=== PATIENT | female | born 1940 | race Caucasian/White ===

== ENCOUNTER 2017-10-17 09:37 | Emergency (ER) | payer MEDICARE ==
[2017-10-17 10:23] LABS: Basophils # (A) 0.1 k/uL (0-0.2); Basophils % (A) 1 %; Eosinophils # (A) 0.2 k/uL (0-0.7); Eosinophils % (A) 4 %; HCT 43.5 % (34.0-46.0); HGB 14.1 gm/dL (11.4-16.0); Lymphocytes # (A) 2.6 k/uL (1.0-4.8); Lymphocytes % (A) 41 %; MCH 28.5 pg (25.0-35.0); MCHC 32.4 g/dL (31.0-37.0); Mean Platelet Volume 8.1; Monocytes # (A) 0.5 k/uL (0-1.0); Monocytes % (A) 8 %; Neutrophils # (A) 2.8 k/uL (1.3-7.7); Neutrophils % (A) 44 %; Platelet Count 194 k/uL (150-450); RBC 4.94 m/uL (3.80-5.40); RDW 13.4 % (11.5-15.5); WBC 6.3 k/uL (3.8-10.6)
[2017-10-17 10:31] LABS: ALT 47 U/L (9-52); AST 46 U/L (14-36); Albumin 3.6 g/dL (3.5-5.0); Alkaline Phosphatase 116 U/L (38-126); Anion Gap 12 mmol/L; Blood Urea Nitrogen 11 mg/dL (7-17); Carbon Dioxide 25 mmol/L (22-30); Chloride 107 mmol/L (98-107); Glucose 104 mg/dL (74-99); Magnesium 1.8 mg/dL (1.6-2.3); Potassium 4.4 mmol/L (3.5-5.1); Sodium 144 mmol/L (137-145); Total Bilirubin 0.7 mg/dL (0.2-1.3); Total Protein 6.9 g/dL (6.3-8.2)
--- NOTE | 2017-10-17 10:32 | XR ---
EXAMINATION TYPE: XR chest 2V DATE OF EXAM: 10/17/2017 COMPARISON: 08/20/2017 HISTORY: Shortness of breath TECHNIQUE: Frontal and lateral views of the chest are obtained. FINDINGS: Scattered senescent parenchymal changes noted. Hyperinflation compatible with COPD. No evidence for infiltrate. No evidence for atelectasis. Heart size is stable. Mediastinal structures are stable and grossly unremarkable. No evidence for hilar prominence. Degenerative changes dorsal spine. IMPRESSION: 1. No evidence for acute pulmonary disease.
[2017-10-17 10:39] LABS: INR 1.2 (<1.2); Partial Thromboplastin Time 24.5 sec (22.0-30.0); Prothrombin Time 11.4 sec (9.0-12.0)
[2017-10-17 10:43] LABS: Creatine Kinase 52 U/L (30-135)
[2017-10-17 10:56] LABS: Creatine Kinase MB 0.7 ng/mL (0.0-2.4); Troponin I <0.012 ng/mL (0.000-0.034)
[2017-10-17 11:19] VITALS: RESP 17
--- NOTE | 2017-10-17 11:44 | CT ---
EXAMINATION TYPE: CT brain wo con DATE OF EXAM: 10/17/2017 COMPARISON: 07/10/2015 HISTORY: Dizziness, fatigue and headache CT DLP: [address] of the brain was performed. The ventricles, basal cisterns and sulci overlying the cerebral convexities demonstrate mild enlargem ent. There is no evidence for intracranial hemorrhage or sulcal effacement. There is decreased attenuation about the periventricular white matter and deep white matter of both c erebral hemispheres, compatible with chronic small vessel ischemia. Differential diagnosis does inclu de demyelination. No mass effects are seen.No midline shift. Osseous calvarium is intact. If symptoms persist consider MRI. IMPRESSION: 1. Age related atrophic and chronic small vessel ischemic change without acute intracranial process s een at this time.
--- NOTE | 2017-10-17 11:50 | ED ---
General Adult HPI - General Chief complaint: Chest Pain Stated complaint: chest pain Time Seen by Provider: 10/17/17 10:28 Source: patient Mode of arrival: wheelchair Limitations: no limitations - History of Present Illness Initial comments: 77 years old female had episode of chest pain yesterday lasted about 10 minutes she denies any chest pain right now and she has off-and-on dizziness as well dizziness gets worse when she moves or drink she changes position and complaining about increased weakness she been nauseous she denies any vomiting she did have some loose stools. He denies any headaches no chest pain or shortness of breath no abdominal pain no frequency urgency dysuria, no symptoms of TIA or CVA - Related Data Home Medications Medication Instructions Recorded Confirmed Atorvastatin [Lipitor] 20 mg PO HS 02/24/14 10/17/17 Nebivolol HCl [Bystolic] 10 mg PO DAILY 02/24/14 10/17/17 Nitroglycerin Sl Tabs [Nitrostat] 0.4 mg SUBLINGUAL Q5M PRN 02/24/14 10/17/17 amLODIPine [Norvasc] 5 mg PO DAILY 02/24/14 10/17/17 Isosorbide Mononitrate ER [Imdur] 30 mg PO DAILY 08/27/15 10/17/17 Previous Rx's Medication Instructions Recorded Aspirin 325 mg PO DAILY #30 tab 02/27/14 Amoxicillin 500 mg PO Q8H #30 capsule 10/17/17 Allergies Allergy/AdvReac Type Severity Reaction Status Date / Time No Known Allergies Allergy Unverified 10/17/17 10:26 Review of Systems ROS Statement: Those systems with pertinent positive or pertinent negative responses have been documented in the HPI. ROS Other: All systems not noted in ROS Statement are negative. Past Medical History Past Medical History: Coronary Artery Disease (CAD), Hypertension Additional Past Medical History / Comment(s): sepsis Hx. polyp in gallbladder Hx. frequent UTI History of Any Multi-Drug Resistant Organisms: None Reported Past Surgical History: Heart Catheterization With Stent, Tubal Ligation Additional Past Surgical History / Comment(s): Hx. lump removed from LH and tongue Past Anesthesia/Blood Transfusion Reactions: No Reported Reaction Date of Last Stent Placement:: 1 YEAR AGO Past Psychological History: No Psychological Hx Reported Smoking Status: Never smoker Past Alcohol Use History: None Reported Past Drug Use History: None Reported - Past Family History Mother Family Medical History: Cancer Additional Family Medical History / Comment(s): uterine CA Father Family Medical History: Cancer Additional Family Medical History / Comment(s): prostate. esophageal ca Brother(s) Family Medical History: Cancer (Lung) Sister(s) Family Medical History: Cancer (Half sister with lung cancer) Daughter(s) History Unknown: Yes (4 daughters with hypertension) Son(s) History Unknown: Yes (3 son with hypertension) General Exam - General Exam Comments Initial Comments: General: The patient is awake and alert, in no distress, and does not appear acutely ill. GCS is 15 Skin: Skin is warm and dry and no rashes or lesions are noted. Eye: Pupils are equal, round and reactive to light, extra-ocular movements are intact; there is normal conjunctiva bilaterally. Ears, nose, mouth and throat: Noticed fluid behind both tympanic membranes Neck: The neck is supple, there is no tenderness or signs of meningitis noticed Cardiovascular: There is a regular rate and rhythm. No murmur, rub or gallop is appreciated. Respiratory: To auscultation bilateral, no wheezing no rhonchi no distress respiratory parker noticed Gastrointestinal: Soft, non-distended, non-tender abdomen without masses or organomegaly noted. There is no rebound or guarding present. Bowel sounds are unremarkable. Back: There is no tenderness to palpation in the midline. There is no obvious deformity. Musculoskeletal: Normal ROM, no tenderness, There is no pedal edema. There is no calf tenderness or swelling. No cords were appreciated. Neurological: CN II-XII intact, Cranial nerves III through XII are intact. There are no obvious motor or sensory deficits. Coordination appears grossly intact. Speech is normal. Psychiatric: Cooperative, appropriate mood & affect, normal judgment. 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 and a she be gone home on a course of antibiotics for otitis EKG Findings - EKG Comments: EKG Findings:: EKG is normal sinus rhythm ventricular rate is 69 OK interval is 172 QRS duration is 88 S duration is 88 QT/QTc is 424/454 review of this EKG reveals some T-wave slight inversion in V5 and V6 also noticed some T-wave inversion in V3 Medical Decision Making - Lab Data Result diagrams: 10/17/17 09:50 10/17/17 09:50 Lab Results 10/17/17 10/17/17 10/17/17 Range/Units 09:50 09:50 09:50 WBC 6.3 (3.8-10.6) k/uL RBC 4.94 (3.80-5.40) m/uL Hgb 14.1 (11.4-16.0) gm/dL Hct 43.5 (34.0-46.0) % MCV 88.0 (80.0-100.0) fL MCH 28.5 (25.0-35.0) pg MCHC 32.4 (31.0-37.0) g/dL RDW 13.4 (11.5-15.5) % Plt Count 194 (150-450) k/uL Neutrophils % 44 % Lymphocytes % 41 % Monocytes % 8 % Eosinophils % 4 % Basophils % 1 % Neutrophils # 2.8 (1.3-7.7) k/uL Lymphocytes # 2.6 (1.0-4.8) k/uL Monocytes # 0.5 (0-1.0) k/uL Eosinophils # 0.2 (0-0.7) k/uL Basophils # 0.1 (0-0.2) k/uL PT (9.0-12.0) sec INR (<1.2) APTT (22.0-30.0) sec Sodium 144 (137-145) mmol/L Potassium 4.4 (3.5-5.1) mmol/L Chloride 107 (98-107) mmol/L Carbon Dioxide 25 (22-30) mmol/L Anion Gap 12 mmol/L BUN 11 (7-17) mg/dL Creatinine 0.60 (0.52-1.04) mg/dL Est GFR (CKD-EPI)AfAm >90 (>60 ml/min/1.73 sqM) Est GFR (CKD-EPI)NonAf 90 (>60 ml/min/1.73 sqM) Glucose 104 H (74-99) mg/dL Calcium 9.0 (8.4-10.2) mg/dL Magnesium 1.8 (1.6-2.3) mg/dL Total Bilirubin 0.7 (0.2-1.3) mg/dL AST 46 H (14-36) U/L ALT 47 (9-52) U/L Alkaline Phosphatase 116 (38-126) U/L Total Creatine Kinase 52 (30-135) U/L CK-MB (CK-2) 0.7 (0.0-2.4) ng/mL CK-MB (CK-2) Rel Index 1.3 Troponin I <0.012 (0.000-0.034) ng/mL Total Protein 6.9 (6.3-8.2) g/dL Albumin 3.6 (3.5-5.0) g/dL Urine Color Urine Appearance (Clear) Urine pH (5.0-8.0) Ur Specific [place] (1.001-1.035) Urine Protein (Negative) Urine Glucose (UA) (Negative) Urine Ketones (Negative) Urine Blood (Negative) Urine Nitrite (Negative) Urine Bilirubin (Negative) Urine Urobilinogen (<2.0) mg/dL Ur Leukocyte Esterase (Negative) Influenza Type A RNA (Not Detectd) Influenza Type B (PCR) (Not Detectd) 10/17/17 10/17/17 10/17/17 Range/Units 09:50 09:50 11:49 WBC (3.8-10.6) k/uL RBC (3.80-5.40) m/uL Hgb (11.4-16.0) gm/dL Hct (34.0-46.0) % MCV (80.0-100.0) fL MCH (25.0-35.0) pg MCHC (31.0-37.0) g/dL RDW (11.5-15.5) % Plt Count (150-450) k/uL Neutrophils % % Lymphocytes % % Monocytes % % Eosinophils % % Basophils % % Neutrophils # (1.3-7.7) k/uL Lymphocytes # (1.0-4.8) k/uL Monocytes # (0-1.0) k/uL Eosinophils # (0-0.7) k/uL Basophils # (0-0.2) k/uL PT 11.4 (9.0-12.0) sec INR 1.2 H (<1.2) APTT 24.5 (22.0-30.0) sec Sodium (137-145) mmol/L Potassium (3.5-5.1) mmol/L Chloride (98-107) mmol/L Carbon Dioxide (22-30) mmol/L Anion Gap mmol/L BUN (7-17) mg/dL Creatinine (0.52-1.04) mg/dL Est GFR (CKD-EPI)AfAm (>60 ml/min/1.73 sqM) Est GFR (CKD-EPI)NonAf (>60 ml/min/1.73 sqM) Glucose (74-99) mg/dL Calcium (8.4-10.2) mg/dL Magnesium (1.6-2.3) mg/dL Total Bilirubin (0.2-1.3) mg/dL AST (14-36) U/L ALT (9-52) U/L Alkaline Phosphatase (38-126) U/L Total Creatine Kinase (30-135) U/L CK-MB (CK-2) (0.0-2.4) ng/mL CK-MB (CK-2) Rel Index Troponin I (0.000-0.034) ng/mL Total Protein (6.3-8.2) g/dL Albumin (3.5-5.0) g/dL Urine Color Light Yellow Urine Appearance Clear (Clear) Urine pH 7.5 (5.0-8.0) Ur Specific [place] 1.007 (1.001-1.035) Urine Protein Negative (Negative) Urine Glucose (UA) Negative (Negative) Urine Ketones Negative (Negative) Urine Blood Negative (Negative) Urine Nitrite Negative (Negative) Urine Bilirubin Negative (Negative) Urine Urobilinogen <2.0 (<2.0) mg/dL Ur Leukocyte Esterase Negative (Negative) Influenza Type A RNA Not Detected (Not Detectd) Influenza Type B (PCR) Not Detected (Not Detectd) Disposition Clinical Impression: Dizziness, Chest pain, Otitis media Disposition: HOME SELF-CARE Condition: Good Instructions: Chest Pain (ED) Prescriptions: Amoxicillin 500 mg PO Q8H #30 capsule Referrals: Charly Pang DO [Primary Care Provider] - 1-2 days Morgan Disla MD [STAFF PHYSICIAN] - 1-2 days
[2017-10-17 12:00] LABS: Appearance,Urine Clear (Clear); Bilirubin,Urine Negative (Negative); Blood,Urine Negative (Negative); Color,Urine Light Yellow; Glucose,Urine (UA) Negative (Negative); Ketones,Urine Negative (Negative); Leukocyte Esterase,Urine Negative (Negative); Nitrite,Urine Negative (Negative); PH, Urine 7.5 (5.0-8.0); Protein,Urine Negative (Negative); Specific Gravity,Urine 1.007 (1.001-1.035); Urobilinogen,Urine <2.0 mg/dL (<2.0)
[2017-10-17 13:21] VITALS: BP 133/64; PULSE 57; TEMP 97.8
== END 2017-10-17 13:20 | disposition home or self-care (01) ==
LOC: EC 09:37
DX: R07.9 Chest pain, unspecified (principal); R42 Dizziness and giddiness; H66.93 Otitis media, unspecified, bilateral; R11.0 Nausea; R53.1 Weakness; R40.2412 Glasgow coma scale score 13-15, at arrival to emergency department; I25.10 Atherosclerotic heart disease of native coronary artery without angina pectoris; I10 Essential (primary) hypertension; Z86.19 Personal history of other infectious and parasitic diseases; Z79.899 Other long term (current) drug therapy; Z88.0 Allergy status to penicillin; Z88.6 Allergy status to analgesic agent
CPT/HCPCS: 36415; 70450; 71046; 80053; 81003; 82550; 82553; 83735; 84484; 85025; 85610; 85730; 87502; 93005; 99285

== ENCOUNTER → 2017-12-27 | Outpatient (CLI) | payer MEDICARE ==
--- NOTE | 2017-12-27 15:07 | US ---
EXAMINATION TYPE: US thyroid st tissue head/neck DATE OF EXAM: 12/27/2017 COMPARISON: NONE CLINICAL HISTORY: R22.1 Neck mass. midline fullness above sternal notch GLAND SIZE: Imaged from midline level of thyroid inferiorly through sternal notch and saw no soft tissue abnormal ity. IMPRESSION: No distinct abnormality seen.
== END | disposition home or self-care (01) ==
LOC: RADUSWWP 14:18
PROVIDERS: ATTEND Family Medicine
DX: R22.1 Localized swelling, mass and lump, neck (principal)
CPT/HCPCS: 76536

== ENCOUNTER → 2018-04-16 | Outpatient (CLI) | payer MEDICARE ==
--- NOTE | 2018-04-16 12:00 | CT ---
EXAMINATION TYPE: CT brain wo/w con DATE OF EXAM: 04/16/2018 COMPARISON: 10/17/2017 HISTORY: palpitations and headache CT DLP: 2238 mGycm Automated exposure control for dose reduction was used. CONTRAST: CT scan of the head is performed without and with IV Contrast, patient injected with 100 ml mL of Iso julian 300. FINDINGS: The ventricles, basal cisterns and sulci overlying the cerebral convexities demonstrate mild enlargem ent. There is no evidence for intracranial hemorrhage or sulcal effacement. There is decreased attenuation about the periventricular white matter and deep white matter of both c erebral hemispheres, compatible with chronic small vessel ischemia. Differential diagnosis does inclu de demyelination. No mass effects are seen. No midline shift. Osseous calvarium is intact. If symptom s persist consider MRI. Changes of chronic sinusitis noted. Hyperostosis of the calvarium noted. IMPRESSION: Degenerative and nonspecific white matter changes most typical remote microvascular ischemia
== END | disposition home or self-care (01) ==
LOC: RADCTMAIN 09:26
PROVIDERS: ATTEND Family Medicine
DX: R90.82 White matter disease, unspecified (principal); R00.2 Palpitations; Z86.73 Personal history of transient ischemic attack (TIA), and cerebral infarction without residual deficits
CPT/HCPCS: 93270; 93271; 82565; 84520; 70470; 36415; Q9967

== ENCOUNTER 2018-06-01 09:08 | Observation (INO) | payer MEDICARE ==
[2018-06-01] MEDS ORDERED: SODIUM CHLORIDE 0.9% 1,000 ML IV STA (09:45)
[2018-06-01] MEDS ORDERED: SODIUM CHLORIDE 0.9% 500 ML 500 ML IV STA ×2 (09:45→13:03)
[2018-06-01] MEDS ORDERED: MECLIZINE 12.5 MG TAB PO STA (09:46)
--- NOTE | 2018-06-01 09:49 | ED ---
General Adult HPI <Kevin Zhong - Last Filed: 06/01/18 14:56> - General Source: patient, RN notes reviewed Mode of arrival: ambulatory Limitations: no limitations <Michael Zuluaga - Last Filed: 06/01/18 15:07> - General Chief complaint: Weakness Stated complaint: Nauseated, Dizzy Time Seen by Provider: 06/01/18 09:35 - History of Present Illness Initial comments: Patient 78-year-old female presented to the emergency room today with a chief complaint of dizziness. Patient is admitted to the past week she's been feeling dizzy. She states worse when she stands up. She states she feels unsteady on her feet she's got a fall over. She does admit that she was diagnosed with urinary tract infection last Monday. Has been on Macrobid. She does admit that she gets urinary tract infections quite frequently and when they seem to get worse the dizziness increases. She states she's had this dizziness in the past as well as also seen cardiology was told that she had a low heart rate at times. She states dizziness to does seem to be worse in the morning and better throughout the day. Patient thought she was getting better 2 days ago with the symptoms but this morning symptoms seemed increase once again. Patient does admit that appetites been somewhat decreased but is been trying to drink water. Patient denies any other complaints at this time. Patient denies any recent fever, chills, shortness of breath, chest pain, back pain, abdominal pain, vomiting, headaches or visual changes, or any other complaints. (Michael Zuluaga) - Related Data Home Medications Medication Instructions Recorded Confirmed Atorvastatin [Lipitor] 20 mg PO HS 02/24/14 06/01/18 Nebivolol HCl [Bystolic] 10 mg PO DAILY 02/24/14 06/01/18 Nitroglycerin Sl Tabs [Nitrostat] 0.4 mg SUBLINGUAL Q5M PRN 02/24/14 06/01/18 Isosorbide Mononitrate ER [Imdur] 30 mg PO DAILY 08/27/15 06/01/18 Aspirin 81 mg PO DAILY 06/01/18 06/01/18 Nitrofurantoin Monohyd/M-Cryst 100 mg PO Q12HR 06/01/18 06/01/18 [Macrobid] Allergies Allergy/AdvReac Type Severity Reaction Status Date / Time No Known Allergies Allergy Verified 06/01/18 09:36 Review of Systems ROS Other: All systems not noted in ROS Statement are negative. <Kevin Zhong Sonja - Last Filed: 06/01/18 14:56> ROS Other: All systems not noted in ROS Statement are negative. <Michael Zuluaga - Last Filed: 06/01/18 15:07> ROS Statement: Those systems with pertinent positive or pertinent negative responses have been documented in the HPI. Past Medical History Past Medical History: Coronary Artery Disease (CAD), Hypertension Additional Past Medical History / Comment(s): sepsis Hx. polyp in gallbladder Hx. frequent UTI History of Any Multi-Drug Resistant Organisms: None Reported Past Surgical History: Heart Catheterization With Stent, Tubal Ligation Additional Past Surgical History / Comment(s): Hx. lump removed from LH and tongue Past Anesthesia/Blood Transfusion Reactions: No Reported Reaction Date of Last Stent Placement:: 1 YEAR AGO Past Psychological History: No Psychological Hx Reported Smoking Status: Never smoker Past Alcohol Use History: None Reported Past Drug Use History: None Reported - Past Family History Mother Family Medical History: Cancer Additional Family Medical History / Comment(s): uterine CA Father Family Medical History: Cancer Additional Family Medical History / Comment(s): prostate. esophageal ca Brother(s) Family Medical History: Cancer (Lung) Sister(s) Family Medical History: Cancer (Half sister with lung cancer) Daughter(s) History Unknown: Yes (4 daughters with hypertension) Son(s) History Unknown: Yes (3 son with hypertension) <ZuluagaMichael - Last Filed: 06/01/18 15:07> General Exam <Kevin Zhong Sonja - Last Filed: 06/01/18 14:56> Limitations: no limitations <ZanMichael - Last Filed: 06/01/18 15:07> - General Exam Comments Initial Comments: General: The patient is awake and alert, in no distress, and does not appear acutely ill. Eye: Pupils are equal, round and reactive to light. Extra-ocular movements are intact. No nystagmus. There is normal conjunctiva bilaterally. No signs of icterus. Ears, nose, mouth and throat: There are moist mucous membranes and no oral lesions. Neck: The neck is supple, there is no tenderness or JVD. Cardiovascular: There is a regular rate and rhythm. No murmur, rub or gallop is appreciated. Respiratory: Lungs are clear to auscultation, respirations are non-labored, breath sounds are equal. No wheezes, stridor, rales, or rhonchi. Gastrointestinal: Soft, non-distended, non-tender abdomen without masses or organomegaly noted. There is no rebound or guarding present. No CVA tenderness. Musculoskeletal: Normal ROM, no tenderness. Sensation intact. Strength 5/5. Pulses equal bilaterally 2+. Neurological: A&O x 3. CN II-XII intact, There are no obvious motor or sensory deficits. Coordination appears grossly intact. Speech is normal. Skin: Skin is warm and dry and no rashes or lesions are noted. Psychiatric: Cooperative, appropriate mood & affect, normal judgment. (Michael Zuluaga) Vital Signs 06/01/18 06/01/18 09:11 12:33 Temperature 97.9 F Pulse Rate 88 Pulse Rate [ 61 Pulse Oximetery ] Respiratory 20 18 Rate Blood Pressure 138/83 Blood Pressure 188/100 [Right Arm Sitting] Blood Pressure 140/98 [Right Arm Standing] Blood Pressure 177/88 [Right Arm Supine] O2 Sat by Pulse 99 Oximetry EKG Findings - EKG Comments: EKG Findings:: EKG performed at 1014: Shows normal sinus rhythm at 65 bpm. DC interval 172. QRS 94. QT/QTc is 438/455. No acute ST change. <Michael Zuluaga - Last Filed: 06/01/18 15:07> Medical Decision Making - Lab Data Result diagrams: 06/01/18 10:15 06/01/18 10:15 <Kevin Zhong - Last Filed: 06/01/18 14:56> - Lab Data Result diagrams: 06/01/18 10:15 06/01/18 10:15 <Michael Zuluaga - Last Filed: 06/01/18 15:07> - Medical Decision Making 72 sexual female with lightheadedness. Patient is currently being treated for UTI. She states her urinary symptoms have improved. This morning she felt quite lightheaded with standing. Denies vomiting or diarrhea. Denies chest pain or dyspnea. Denies headache. Denies focal numbness or weakness. Patient is given IV hydration for orthostatic hypotension which is likely the cause of her symptoms. On reevaluation she states she feels somewhat better. Patient does live alone. She will be placed in observation for continued IV hydration. Blood culture urine culture are pending given her recent UTI. Case discussed with admitting physician who will accept. (Kevin Zhong) - Lab Data Lab Results 06/01/18 06/01/18 06/01/18 Range/Units 10:15 10:15 10:15 WBC 7.3 (3.8-10.6) k/uL RBC 4.92 (3.80-5.40) m/uL Hgb 15.3 (11.4-16.0) gm/dL Hct 45.1 (34.0-46.0) % MCV 91.6 (80.0-100.0) fL MCH 31.0 (25.0-35.0) pg MCHC 33.9 (31.0-37.0) g/dL RDW 12.5 (11.5-15.5) % Plt Count 194 (150-450) k/uL Neutrophils % 46 % Lymphocytes % 41 % Monocytes % 9 % Eosinophils % 2 % Basophils % 1 % Neutrophils # 3.4 (1.3-7.7) k/uL Lymphocytes # 3.0 (1.0-4.8) k/uL Monocytes # 0.6 (0-1.0) k/uL Eosinophils # 0.1 (0-0.7) k/uL Basophils # 0.0 (0-0.2) k/uL PT (9.0-12.0) sec INR (<1.2) APTT (22.0-30.0) sec Sodium 142 (137-145) mmol/L Potassium 4.0 (3.5-5.1) mmol/L Chloride 111 H (98-107) mmol/L Carbon Dioxide 24 (22-30) mmol/L Anion Gap 7 mmol/L BUN 12 (7-17) mg/dL Creatinine 0.63 (0.52-1.04) mg/dL Est GFR (CKD-EPI)AfAm >90 (>60 ml/min/1.73 sqM) Est GFR (CKD-EPI)NonAf 87 (>60 ml/min/1.73 sqM) Glucose 106 H (74-99) mg/dL Plasma Lactic Acid Jey (0.7-2.0) mmol/L Calcium 9.2 (8.4-10.2) mg/dL Total Bilirubin 0.8 (0.2-1.3) mg/dL AST 51 H (14-36) U/L ALT 43 (9-52) U/L Alkaline Phosphatase 112 (38-126) U/L Total Creatine Kinase 57 (30-135) U/L CK-MB (CK-2) 0.5 (0.0-2.4) ng/mL CK-MB (CK-2) Rel Index 0.9 Troponin I <0.012 (0.000-0.034) ng/mL Total Protein 7.0 (6.3-8.2) g/dL Albumin 3.6 (3.5-5.0) g/dL Urine Color Urine Appearance (Clear) Urine pH (5.0-8.0) Ur Specific [place] (1.001-1.035) Urine Protein (Negative) Urine Glucose (UA) (Negative) Urine Ketones (Negative) Urine Blood (Negative) Urine Nitrite (Negative) Urine Bilirubin (Negative) Urine Urobilinogen (<2.0) mg/dL Ur Leukocyte Esterase (Negative) Urine WBC (0-5) /hpf Ur Squamous Epith Cells (0-4) /hpf Urine Bacteria (None) /hpf Urine Mucus (None) /hpf 06/01/18 06/01/18 06/01/18 Range/Units 10:15 10:15 11:35 WBC (3.8-10.6) k/uL RBC (3.80-5.40) m/uL Hgb (11.4-16.0) gm/dL Hct (34.0-46.0) % MCV (80.0-100.0) fL MCH (25.0-35.0) pg MCHC (31.0-37.0) g/dL RDW (11.5-15.5) % Plt Count (150-450) k/uL Neutrophils % % Lymphocytes % % Monocytes % % Eosinophils % % Basophils % % Neutrophils # (1.3-7.7) k/uL Lymphocytes # (1.0-4.8) k/uL Monocytes # (0-1.0) k/uL Eosinophils # (0-0.7) k/uL Basophils # (0-0.2) k/uL PT 10.9 (9.0-12.0) sec INR 1.1 (<1.2) APTT 24.1 (22.0-30.0) sec Sodium (137-145) mmol/L Potassium (3.5-5.1) mmol/L Chloride (98-107) mmol/L Carbon Dioxide (22-30) mmol/L Anion Gap mmol/L BUN (7-17) mg/dL Creatinine (0.52-1.04) mg/dL Est GFR (CKD-EPI)AfAm (>60 ml/min/1.73 sqM) Est GFR (CKD-EPI)NonAf (>60 ml/min/1.73 sqM) Glucose (74-99) mg/dL Plasma Lactic Acid Jey 1.5 (0.7-2.0) mmol/L Calcium (8.4-10.2) mg/dL Total Bilirubin (0.2-1.3) mg/dL AST (14-36) U/L ALT (9-52) U/L Alkaline Phosphatase (38-126) U/L Total Creatine Kinase (30-135) U/L CK-MB (CK-2) (0.0-2.4) ng/mL CK-MB (CK-2) Rel Index Troponin I (0.000-0.034) ng/mL Total Protein (6.3-8.2) g/dL Albumin (3.5-5.0) g/dL Urine Color Light Yellow Urine Appearance Clear (Clear) Urine pH 6.5 (5.0-8.0) Ur Specific [place] 1.006 (1.001-1.035) Urine Protein Negative (Negative) Urine Glucose (UA) Negative (Negative) Urine Ketones Negative (Negative) Urine Blood Negative (Negative) Urine Nitrite Negative (Negative) Urine Bilirubin Negative (Negative) Urine Urobilinogen <2.0 (<2.0) mg/dL Ur Leukocyte Esterase Small H (Negative) Urine WBC 6 H (0-5) /hpf Ur Squamous Epith Cells <1 (0-4) /hpf Urine Bacteria Rare H (None) /hpf Urine Mucus Rare H (None) /hpf Disposition <Kevin Zhong - Last Filed: 06/01/18 14:56> Is patient prescribed a controlled substance at d/c from ED?: No <Michael Zuluaga - Last Filed: 06/01/18 15:07> Clinical Impression: Dehydration, Orthostatic dizziness, UTI (urinary tract infection) Disposition: ADMITTED IP TO THIS HOSP Condition: Stable Referrals: Charly Pang DO [Primary Care Provider] - 1-2 days
--- NOTE | 2018-06-01 10:38 | XR ---
EXAMINATION TYPE: XR chest 2V DATE OF EXAM: 06/01/2018 COMPARISON: 10/17/2017 HISTORY: Shortness of breath TECHNIQUE: Frontal and lateral views of the chest are obtained. FINDINGS: Scattered senescent parenchymal changes noted. No evidence for infiltrate. No evidence for atelectasis. Heart size is stable. Mediastinal structures are stable and grossly unremarkable. No evidence for hilar prominence. Degenerative changes dorsal spine. IMPRESSION: 1. No evidence for acute pulmonary disease.
[2018-06-01 10:40] LABS: Basophils % (A) 1 %; Eosinophils # (A) 0.1 k/uL (0-0.7); Eosinophils % (A) 2 %; HCT 45.1 % (34.0-46.0); HGB 15.3 gm/dL (11.4-16.0); Lymphocytes % (A) 41 %; MCHC 33.9 g/dL (31.0-37.0); MCV 91.6 fL (80.0-100.0); Mean Platelet Volume 7.4; Monocytes # (A) 0.6 k/uL (0-1.0); Monocytes % (A) 9 %; Neutrophils # (A) 3.4 k/uL (1.3-7.7); Neutrophils % (A) 46 %; Platelet Count 194 k/uL (150-450); RBC 4.92 m/uL (3.80-5.40); RDW 12.5 % (11.5-15.5); WBC 7.3 k/uL (3.8-10.6)
[2018-06-01 10:53] LABS: INR 1.1 (<1.2); Partial Thromboplastin Time 24.1 sec (22.0-30.0); Prothrombin Time 10.9 sec (9.0-12.0)
[2018-06-01 10:54] LABS: ALT 43 U/L (9-52); AST 51 U/L (14-36); Albumin 3.6 g/dL (3.5-5.0); Alkaline Phosphatase 112 U/L (38-126); Anion Gap 7 mmol/L; Blood Urea Nitrogen 12 mg/dL (7-17); Calcium 9.2 mg/dL (8.4-10.2); Carbon Dioxide 24 mmol/L (22-30); Chloride 111 mmol/L (98-107); Glucose 106 mg/dL (74-99); Sodium 142 mmol/L (137-145); Total Bilirubin 0.8 mg/dL (0.2-1.3)
[2018-06-01 11:19] LABS: Creatine Kinase 57 U/L (30-135)
[2018-06-01 11:33] LABS: Creatine Kinase MB 0.5 ng/mL (0.0-2.4); Troponin I <0.012 ng/mL (0.000-0.034)
[2018-06-01 12:04] LABS: Appearance,Urine Clear (Clear); Bacteria,Urine Rare /hpf; Bilirubin,Urine Negative (Negative); Blood,Urine Negative (Negative); Color,Urine Light Yellow; Glucose,Urine (UA) Negative (Negative); Ketones,Urine Negative (Negative); Leukocyte Esterase,Urine Small (Negative); Mucus,Urine Rare /hpf; Nitrite,Urine Negative (Negative); PH, Urine 6.5 (5.0-8.0); Protein,Urine Negative (Negative); Specific Gravity,Urine 1.006 (1.001-1.035); Squamous Epithelial Cell,Urine <1 /hpf (0-4); Urobilinogen,Urine <2.0 mg/dL (<2.0); WBC,Urine 6 /hpf (0-5)
--- NOTE | 2018-06-01 13:56 | US ---
EXAMINATION TYPE: US venous doppler duplex LE RT DATE OF EXAM: 06/01/2018 1:47 PM COMPARISON: NONE CLINICAL HISTORY: Pain. Rt calf burning pain. No redness. No swelling. No hx of DVT. On baby aspir in. SIDE PERFORMED: Right TECHNIQUE: The lower extremity deep venous system is examined utilizing real time linear array sonog oscar with graded compression, doppler sonography and color-flow sonography. VESSELS IMAGED: External Iliac Vein (EIV) Common Femoral Vein Deep Femoral Vein Greater Saphenous Vein * Femoral Vein Popliteal Vein Small Saphenous Vein * Proximal Calf Veins (* superficial vessels) Right Leg: Negative for DVT IMPRESSION: No evidence for DVT at this time.
[2018-06-01] MEDS ORDERED: ACETAMINOPHEN TAB 325 MG TAB PO PRN (15:07)
[2018-06-01] MEDS ORDERED: ONDANSETRON 4 MG/2 ML VIAL IVP PRN (15:07)
[2018-06-01] MEDS ORDERED: NALOXONE 0.4 MG/ML 1 ML VIAL IV PRN (15:07)
[2018-06-01] MEDS: SODIUM CHLORIDE 0.9% 1,000 ML IV SCH (19:28)
[2018-06-01] MEDS: ATORVASTATIN 20 MG TAB PO SCH (21:49)
[2018-06-01] MEDS: NITROFURANTOIN MONOHYD/M-CRYST 100 MG CAP PO SCH (21:49)
[2018-06-02] MEDS: SODIUM CHLORIDE 0.9% 1,000 ML IV SCH ×2 (05:05→08:11)
[2018-06-02 08:00] LABS: Basophils % (A) 1 %; Eosinophils # (A) 0.2 k/uL (0-0.7); Eosinophils % (A) 3 %; HCT 42.8 % (34.0-46.0); HGB 13.5 gm/dL (11.4-16.0); Lymphocytes # (A) 2.2 k/uL (1.0-4.8); Lymphocytes % (A) 42 %; MCH 29.6 pg (25.0-35.0); MCHC 31.7 g/dL (31.0-37.0); MCV 93.6 fL (80.0-100.0); Mean Platelet Volume 6.9; Monocytes # (A) 0.4 k/uL (0-1.0); Monocytes % (A) 8 %; Neutrophils # (A) 2.3 k/uL (1.3-7.7); Neutrophils % (A) 45 %; Platelet Count 172 k/uL (150-450); RBC 4.57 m/uL (3.80-5.40); RDW 12.4 % (11.5-15.5); WBC 5.1 k/uL (3.8-10.6)
[2018-06-02] MEDS: NEBIVOLOL 5 MG TAB PO SCH (08:11)
[2018-06-02] MEDS: NITROFURANTOIN MONOHYD/M-CRYST 100 MG CAP PO SCH ×2 (08:11→21:29)
[2018-06-02] MEDS: ASPIRIN 81 MG PO SCH (08:11)
[2018-06-02] MEDS: ISOSORBIDE MONONITRATE ER 30 MG TAB.ER.24H PO SCH (08:11)
[2018-06-02 08:14] LABS: ALT 43 U/L (9-52); AST 42 U/L (14-36); Alkaline Phosphatase 89 U/L (38-126); Anion Gap 4 mmol/L; Blood Urea Nitrogen 12 mg/dL (7-17); Calcium 8.7 mg/dL (8.4-10.2); Carbon Dioxide 25 mmol/L (22-30); Chloride 112 mmol/L (98-107); Glucose 138 mg/dL (74-99); Potassium 3.8 mmol/L (3.5-5.1); Sodium 141 mmol/L (137-145); Total Bilirubin 0.7 mg/dL (0.2-1.3); Total Protein 5.9 g/dL (6.3-8.2)
[2018-06-02] MEDS ORDERED: NITROGLYCERIN SL TABS 0.4 MG TAB SUBLINGUAL PRN (16:55)
--- NOTE | 2018-06-02 17:39 | P.HPIM ---
History of Present Illness H&P Date: 06/02/18 Chief Complaint: dizziness This is a 78-year-old female one of Dr. Pang with a previous medical history significant for coronary artery disease status post the PCI of the LAD back in October 2012, hypertension and hypertensive cardiovascular disease with left ventricular hypertrophy, hyperlipidemia, patient the presented to the emergency department at [facility] because of increased dizziness and she had called her primary care physician and she was asked to go to the ER for evaluation, patient was found to have a mild cystitis however she appeared a bit orthostatic in the ER subsequent she was admitted to the hospital for IV fluid resuscitation she was placed on oral antibiotic in the form of Macrobid 100 mg orally twice every day and the patient was kept in the hospital for another 24 hours as to be discharged home in the next 24 hours. Review of Systems Constitutional: Reports weakness, Denies anorexia, Denies chronic headaches, Denies lethargy Eyes: denies blurred vision, denies bulging eye, denies decreased vision Ears: bilateral: decreased hearing Ears, nose, mouth and throat: Reports vertigo, Denies dysphagia, Denies neck lump, Denies sore throat Cardiovascular: Reports high blood pressure, Denies chest pain, Denies dyspnea on exertion, Denies edema, Denies paroxysmal nocturnal dyspnea, Denies rapid heart beat, Denies shortness of breath, Denies syncope Respiratory: Denies congestion, Denies cough with sputum, Denies home oxygen, Denies sleep apnea, Denies snoring, Denies wheezing Gastrointestinal: Denies abdominal pain, Denies bloating, Denies BRBPR, Denies excessive gas, Denies melena, Denies nausea, Denies vomiting Genitourinary: Denies dysuria, Denies hematuria Menstruation: Reports postmenopausal Musculoskeletal: Denies myalgias Musculoskeletal: absent: ankle pain, ankle stiffness, ankle swelling, elbow pain , elbow stiffness, elbow swelling, foot pain, foot stiffness, foot swelling, hand pain, hand stiffness, hand swelling, hip pain, hip stiffness, hip swelling , knee pain, knee stiffness, knee swelling, shoulder pain, shoulder stiffness, shoulder swelling, wrist pain, wrist stiffness, wrist swelling Integumentary: Denies pruritus, Denies rash Neurological: Denies numbness, Denies weakness Psychiatric: Denies anxiety, Denies depression Endocrine: Denies fatigue, Denies weight change Past Medical History Past Medical History: Coronary Artery Disease (CAD), Hypertension, Osteoarthritis (OA) Additional Past Medical History / Comment(s): sepsis Hx. polyp in gallbladder Hx. frequent UTI, "headaches". "palitations", occular migraines History of Any Multi-Drug Resistant Organisms: None Reported Past Surgical History: Adenoidectomy, Heart Catheterization With Stent, Tonsillectomy, Tubal Ligation Additional Past Surgical History / Comment(s): Hx.benign lump removed from Left hand and tongue Past Anesthesia/Blood Transfusion Reactions: No Reported Reaction Date of Last Stent Placement:: 1 YEAR AGO Smoking Status: Never smoker - Past Family History Mother Family Medical History: Cancer (mother at age of 90 from uterine cancer.) Additional Family Medical History / Comment(s): uterine CA Father Family Medical History: Cancer (father at age of 83 From the prostate cancer and esophageal cancer) Additional Family Medical History / Comment(s): prostate. esophageal ca Brother(s) Family Medical History: Cancer (patient had a half brother who at age of 68 from lung cancer.) Sister(s) Family Medical History: Cancer (patient had half sister who at age of 69 from lung cancer as well.) Daughter(s) History Unknown: Yes Family Medical History: CVA/TIA (patient has 4 daughters one of them diedof CVA at age 33 the rest has hypertension.) Son(s) History Unknown: Yes Family Medical History: Hypertension (patient has 3 sons with hypertension.) Medications and Allergies Home Medications Medication Instructions Recorded Confirmed Type Atorvastatin [Lipitor] 20 mg PO HS 02/24/14 06/01/18 History Nebivolol HCl [Bystolic] 10 mg PO DAILY 02/24/14 06/01/18 History Nitroglycerin Sl Tabs [Nitrostat] 0.4 mg SUBLINGUAL Q5M PRN 02/24/14 06/01/18 History Isosorbide Mononitrate ER [Imdur] 30 mg PO DAILY 08/27/15 06/01/18 History Aspirin 81 mg PO DAILY 06/01/18 06/01/18 History Nitrofurantoin Monohyd/M-Cryst 100 mg PO Q12HR 06/01/18 06/01/18 History [Macrobid] Allergies Allergy/AdvReac Type Severity Reaction Status Date / Time No Known Allergies Allergy Verified 06/01/18 09:36 Physical Exam Vitals: Vital Signs Temp Pulse Pulse Resp BP BP BP 06/02/18 08:13 16 06/02/18 07:30 98.3 F 68 16 143/67 06/01/18 21:50 98.3 F 63 16 128/82 103/70 06/01/18 19:22 98.2 F 61 16 142/80 06/01/18 18:30 98.1 F 62 17 151/81 06/01/18 18:00 60 17 169/78 06/01/18 17:30 63 13 149/80 06/01/18 17:00 59 L 17 131/69 06/01/18 16:30 60 14 138/71 06/01/18 16:06 63 18 138/71 06/01/18 16:00 60 12 147/74 06/01/18 15:30 57 L 16 188/86 06/01/18 15:00 57 L 16 165/85 06/01/18 14:30 53 L 18 174/83 06/01/18 14:00 56 L 15 175/89 BP Pulse Ox 06/02/18 08:13 06/02/18 07:30 95 06/01/18 21:50 136/79 94 L 06/01/18 19:22 95 06/01/18 18:30 95 06/01/18 18:00 95 06/01/18 17:30 95 06/01/18 17:00 94 L 06/01/18 16:30 94 L 06/01/18 16:06 95 06/01/18 16:00 93 L 06/01/18 15:30 95 06/01/18 15:00 97 06/01/18 14:30 98 06/01/18 14:00 96 Intake and Output 06/01/18 06/02/18 06/02/18 22:59 06:59 14:59 Intake Total 150 Balance 150 Intake: Oral 150 Other: Voiding Method Toilet # Voids 1 2 - Constitutional General appearance: average body habitus, no acute distress - EENT Eyes: anicteric sclerae, EOMI, PERRLA, no ptosis, no scleral icterus, normal appearance ENT: hearing grossly normal, NA/AT, normal oropharynx, no thrush Ears: bilateral: normal - Neck Neck: no lymphadenopathy, normal ROM, no rigidity, no stridor, no thyromegaly Carotids: bilateral: upstroke normal Thyroid: bilateral: normal size - Respiratory Respiratory: bilateral: diminished, negative: dullness, rales, rhonchi, wheezing , prolonged expiration, prolonged inspiration - Cardiovascular Rhythm: regular Heart sounds: normal: S1, S2 Abnormal Heart Sounds: systolic murmur, no S3 Gallop, no S4 Gallop, no click - Gastrointestinal General gastrointestinal: normal bowel sounds, soft, no splenomegaly, no tenderness, no umbilical hernia, no ventral hernia - Integumentary Integumentary: normal, normal turgor - Neurologic Neurologic: CNII-XII intact - Musculoskeletal Musculoskeletal: generalized weakness, strength equal bilaterally - Psychiatric Psychiatric: A&O x's 3, appropriate affect, intact judgment & insight Results CBC & Chem 7: 06/02/18 07:20 06/02/18 07:20 Labs: Abnormal Lab Results - Last 24 Hours (Table) 06/02/18 Range/Units 07:20 Chloride 112 H (98-107) mmol/L Glucose 138 H (74-99) mg/dL AST 42 H (14-36) U/L Total Protein 5.9 L (6.3-8.2) g/dL Albumin 3.0 L (3.5-5.0) g/dL Microbiology - Last 24 Hours (Table) 06/01/18 10:15 Blood Culture - Preliminary Blood No Growth after 24 hours 06/01/18 11:35 Urine Culture - Preliminary Urine,Voided Thrombosis Risk Factor Assmnt - DVT/VTE Prophylaxis DVT/VTE Prophylaxis: Pharmacologic Prophylaxis ordered, Mechanical Prophylaxis ordered - Choose All That Apply Any of the Below Risk Factors Present?: Yes Each Factor Represents 1 point: Obesity (BMI >25) Other Risk Factors: Yes Each Risk Factor Represents 3 Points: Age 75 years or older Other congenital or acquired thrombophilia - If yes, enter type in comment: No Thrombosis Risk Factor Assessment Total Risk Factor Score: 4 Thrombosis Risk Factor Assessment Level: Moderate Risk Assessment and Plan Assessment: Assessment and plan: 1. Dizziness likely related to mild dehydration with poor oral intake of fluid. Continue IV fluid resuscitation in the form of normal saline at 100 mL an hour for the next 24 hours, patient can be discharged home in the next 24 hours. 2. Simple cystitis. Continue Macrobid 100 mg orally twice every day. 3. CAD post-PCI of the LAD. Continue patient on Lipitor 20 mg orally once every day, by systolic 10 mg orally once every day, aspirin 325 mg orally once every day, Imdur 30 mg orally once every day. 4. Hyperlipidemia. Continue patient on Lipitor 20 mg orally once every day. 5. Hypertension and hypertensive cardiovascular disease. Continue patient on diastolic to milligram at bedtime, amlodipine 5 mg orally once every day. 6. DVT prophylaxis. Heparin 5000 units subcutaneously every 12 hours. 7. GI prophylaxis. Continue PPI. 8. Patient is full code. 9. Admit to inpatient estimate a length of stay 2 midnights. 10. Home tomorrow morning.
[2018-06-02] MEDS: ATORVASTATIN 20 MG TAB PO SCH (21:29)
[2018-06-02] MEDS: HEPARIN SODIUM,PORCINE 5,000 UNIT/ML 1 ML VIAL SQ SCH (21:30)
[2018-06-03] MEDS: SODIUM CHLORIDE 0.9% 1,000 ML IV SCH ×2 (00:12→08:26)
[2018-06-03 07:43] LABS: Basophils % (A) 1 %; Eosinophils # (A) 0.3 k/uL (0-0.7); Eosinophils % (A) 4 %; HCT 45.5 % (34.0-46.0); HGB 14.6 gm/dL (11.4-16.0); Lymphocytes # (A) 3.6 k/uL (1.0-4.8); Lymphocytes % (A) 49 %; MCH 29.8 pg (25.0-35.0); MCHC 32.2 g/dL (31.0-37.0); MCV 92.6 fL (80.0-100.0); Mean Platelet Volume 7.1; Monocytes # (A) 0.6 k/uL (0-1.0); Monocytes % (A) 9 %; Neutrophils # (A) 2.6 k/uL (1.3-7.7); Neutrophils % (A) 36 %; Platelet Count 166 k/uL (150-450); RBC 4.91 m/uL (3.80-5.40); RDW 12.4 % (11.5-15.5); WBC 7.3 k/uL (3.8-10.6)
[2018-06-03 07:59] LABS: ALT 42 U/L (9-52); AST 43 U/L (14-36); Albumin 3.3 g/dL (3.5-5.0); Alkaline Phosphatase 94 U/L (38-126); Anion Gap 7 mmol/L; Blood Urea Nitrogen 13 mg/dL (7-17); Calcium 8.8 mg/dL (8.4-10.2); Carbon Dioxide 27 mmol/L (22-30); Chloride 108 mmol/L (98-107); Glucose 92 mg/dL (74-99); Magnesium 1.7 mg/dL (1.6-2.3); Potassium 4.1 mmol/L (3.5-5.1); Sodium 142 mmol/L (137-145); Total Bilirubin 0.7 mg/dL (0.2-1.3); Total Protein 6.6 g/dL (6.3-8.2)
[2018-06-03] MEDS: NEBIVOLOL 5 MG TAB PO SCH (08:24)
[2018-06-03] MEDS: ASPIRIN 81 MG PO SCH (08:24)
[2018-06-03] MEDS: HEPARIN SODIUM,PORCINE 5,000 UNIT/ML 1 ML VIAL SQ SCH (08:24)
[2018-06-03] MEDS: ISOSORBIDE MONONITRATE ER 30 MG TAB.ER.24H PO SCH (08:24)
[2018-06-03] MEDS: NITROFURANTOIN MONOHYD/M-CRYST 100 MG CAP PO SCH (08:24)
[2018-06-03 15:19] VITALS: BP 135/70; PULSE 58; RESP 16; TEMP 97.4
== END 2018-06-03 15:37 | disposition home or self-care (01) ==
LOC: EC 09:08 → 4MS4W 14:55
PROVIDERS: ADMIT Internal Medicine Geriatric Medicine; ATTEND Internal Medicine Geriatric Medicine
DX: R42 Dizziness and giddiness (principal); M79.661 Pain in right lower leg; E86.0 Dehydration; N30.90 Cystitis, unspecified without hematuria; I25.10 Atherosclerotic heart disease of native coronary artery without angina pectoris; I11.9 Hypertensive heart disease without heart failure; E78.5 Hyperlipidemia, unspecified; M19.90 Unspecified osteoarthritis, unspecified site; Z87.440 Personal history of urinary (tract) infections; G43.909 Migraine, unspecified, not intractable, without status migrainosus; Z95.5 Presence of coronary angioplasty implant and graft; Z80.0 Family history of malignant neoplasm of digestive organs; Z80.49 Family history of malignant neoplasm of other genital organs; Z80.42 Family history of malignant neoplasm of prostate; Z80.1 Family history of malignant neoplasm of trachea, bronchus and lung; Z82.3 Family history of stroke; Z79.899 Other long term (current) drug therapy; Z79.82 Long term (current) use of aspirin; E66.9 Obesity, unspecified; Z68.31 Body mass index [BMI] 31.0-31.9, adult; I95.1 Orthostatic hypotension
CPT/HCPCS: 96361 ×4; 96372 ×2; 96360; 99285; 36415; 93005; 80053 ×3; 82550; 82553; 83605; 83735; 84484; 85025 ×3; 85610; 85730; 81001; 87040; 87086; 71046; 93971; G0378 ×3; J1644 ×2

== ENCOUNTER → 2018-08-08 | Outpatient (CLI) | payer MEDICARE ==
[2018-08-08 16:47] LABS: Albumin 3.9 g/dL (3.80-4.90); Albumin/Globulin Ratio 1.7 (1.20-2.10); Anion Gap 4.6 mmol/L (4.00-12.00); Carbon Dioxide 28.4 mmol/L (21.6-31.8); Globulin 2.3 g/dL (1.6-3.3); Potassium 4.8 mmol/L (3.5-5.5); Total Bilirubin 0.6 mg/dL (0.3-1.2); Total Protein 6.2 g/dL (6.2-8.2)
== END ==
LOC: LABWHC1 10:35
PROVIDERS: ATTEND Internal Medicine Clinical Cardiac Electrophysiology
DX: I25.10 Atherosclerotic heart disease of native coronary artery without angina pectoris (principal); R00.1 Bradycardia, unspecified; Z95.5 Presence of coronary angioplasty implant and graft
CPT/HCPCS: 36415; 80053; 80061; 84443

== ENCOUNTER 2018-12-04 22:30 | Inpatient (IN) | payer MEDICARE ==
[2018-12-04] MEDS ORDERED: NITROGLYCERIN OINT 1 INCH/GM PACKET TOPICAL ONE (23:10)
[2018-12-05] MEDS ORDERED: MORPHINE SULFATE 4 MG/ML SYRINGE IVP PRN (05:48)
[2018-12-05] MEDS ORDERED: ONDANSETRON 4 MG/2 ML VIAL IVP PRN (05:48)
[2018-12-05 05:58] LABS: ALT 50 U/L (9-52); AST 56 U/L (14-36); Albumin 3.7 g/dL (3.5-5.0); Alkaline Phosphatase 107 U/L (38-126); Anion Gap 7 mmol/L; Blood Urea Nitrogen 21 mg/dL (7-17); Calcium 9.3 mg/dL (8.4-10.2); Carbon Dioxide 24 mmol/L (22-30); Chloride 108 mmol/L (98-107); Creatine Kinase 56 U/L (30-135); Glucose 111 mg/dL (74-99); Potassium 4.2 mmol/L (3.5-5.1); Sodium 139 mmol/L (137-145); Total Bilirubin 0.5 mg/dL (0.2-1.3)
[2018-12-05 05:59] LABS: Basophils # (A) 0.1 k/uL (0-0.2); Basophils % (A) 1 %; Eosinophils # (A) 0.1 k/uL (0-0.7); Eosinophils % (A) 1 %; HCT 43.8 % (34.0-46.0); HGB 14.2 gm/dL (11.4-16.0); Lymphocytes # (A) 4.5 k/uL (1.0-4.8); Lymphocytes % (A) 45 %; MCH 29.6 pg (25.0-35.0); MCHC 32.5 g/dL (31.0-37.0); MCV 91.1 fL (80.0-100.0); Mean Platelet Volume 7.5; Monocytes # (A) 0.5 k/uL (0-1.0); Monocytes % (A) 5 %; Neutrophils # (A) 4.6 k/uL (1.3-7.7); Neutrophils % (A) 46 %; Platelet Count 191 k/uL (150-450); RBC 4.81 m/uL (3.80-5.40); RDW 13.6 % (11.5-15.5)
[2018-12-05 06:00] LABS: Lipase 4381 U/L (23-300)
[2018-12-05 06:02] LABS: Partial Thromboplastin Time 22.5 sec (22.0-30.0); Prothrombin Time 10.5 sec (9.0-12.0)
[2018-12-05 06:03] LABS: D-Dimer 1.46 mg/L FEU (<0.60)
[2018-12-05] MEDS: SODIUM CHLORIDE 0.9% 1,000 ML IV SCH ×4 (06:34→23:46)
[2018-12-05 07:17] VITALS: BMI 30.2
[2018-12-05 09:44] LABS: Basophils # (A) 0.1 k/uL (0-0.2); Basophils % (A) 1 %; Eosinophils # (A) 0.2 k/uL (0-0.7); Eosinophils % (A) 1 %; HCT 47.2 % (34.0-46.0); HGB 15.4 gm/dL (11.4-16.0); Lymphocytes # (A) 3.3 k/uL (1.0-4.8); Lymphocytes % (A) 29 %; MCHC 32.5 g/dL (31.0-37.0); MCV 92.1 fL (80.0-100.0); Mean Platelet Volume 7.3; Monocytes # (A) 0.6 k/uL (0-1.0); Monocytes % (A) 5 %; Neutrophils # (A) 7.2 k/uL (1.3-7.7); Neutrophils % (A) 63 %; Platelet Count 187 k/uL (150-450); RBC 5.12 m/uL (3.80-5.40); RDW 13.5 % (11.5-15.5); WBC 11.5 k/uL (3.8-10.6)
[2018-12-05 09:49] LABS: ALT 57 U/L (9-52); AST 50 U/L (14-36); Albumin 4.2 g/dL (3.5-5.0); Alkaline Phosphatase 119 U/L (38-126); Anion Gap 7 mmol/L; Blood Urea Nitrogen 15 mg/dL (7-17); Calcium 9.1 mg/dL (8.4-10.2); Carbon Dioxide 25 mmol/L (22-30); Chloride 110 mmol/L (98-107); Glucose 92 mg/dL (74-99); Lipase 705 U/L (23-300); Sodium 142 mmol/L (137-145); Total Bilirubin 0.9 mg/dL (0.2-1.3); Total Protein 7.6 g/dL (6.3-8.2)
--- NOTE | 2018-12-05 12:19 | CT ---
EXAM: CT Angiography Chest With Intravenous Contrast CLINICAL HISTORY: Patient presents with chest pain. SOB, and tachycardia. 60mL of isovue 370 given through IV. DLP 342.9 TECHNIQUE: Axial computed tomographic angiography images of the chest with intravenous contrast using pulmonary embolism protocol. CTDI is 0.08, 0. 75, 1.5, 1.5, 7.6 mGy and DLP is 342.9 mGy-cm. This CT exam was performed using one or more of the following dose reduction techniques: automated exposure control, adjustment of the mA and/or kV according to patient size, and/or use of iterative reconstruction technique. MIP reconstructed images were created and reviewed. COMPARISON: No relevant prior studies available. FINDINGS: Pulmonary arteries: No evidence of pulmonary embolus. Aorta: No acute findings. No thoracic aortic aneurysm. Lungs: Numerous cysts are seen throughout both lungs, which is non- specific and may represent emphysema. No mass. Pleural space: Unremarkable. No significant effusion. No pneumothorax. Heart: Coronary artery calcifications. Trace pericardial effusion. No evidence of RV dysfunction. Bones/joints: No acute fracture. No dislocation. Soft tissues: Unremarkable. Lymph nodes: Unremarkable. No enlarged lymph nodes. Liver: Mild wall thickening of the gallbladder which may be secondary to cirrhosis. Kidneys and ureters: Probable cyst within the left kidney. Stomach and bowel: Noninflamed colonic diverticulosis. IMPRESSION: 1. No evidence of pulmonary embolus. 2. Numerous cysts are seen throughout both lungs, which is non-specific and may represent emphysema.
--- NOTE | 2018-12-05 13:27 | P.CRDCN ---
History of Present Illness History of present illness: This is a pleasant 78-year-old female past medical history significant for coronary artery disease status post stent placement to the mid LAD in 2012, hypertension and arthritis. She follows in the office with Dr. Espinoza. We have been asked to see the patient in consultation secondary to chest discomfort. She presented to the hospital last evening with symptoms of epigastric and chest discomfort. She states it came on acutely at around 8 PM last evening. It felt like a burning sensation in the midsternal region that radiated through to her back. This was associated with nausea, vomiting and shortness of breath. According to her daughter her blood pressure at home was extremely high 200/110 at home. Upon arrival to ED she was noted to have a lipase of 4,381. She continues to feel pain in the epigastric region that has decreased since admission. She is extremely tender on palpitation of the epigastric region. No reproducible chest pain. EKG reveals sinus tachycardia heart rate of 102 with nonspecific T wave abnormalities noted. Laboratory data reviewed, WBC 11.5, hemoglobin 15.4, platelets 187, d-dimer 1.46, sodium 142, potassium 4.0, creatinine 0.55, AST 50, ALT 57, cardiac enzymes negative 1, lipase on admission 4380 1 repeat this morning 705. Current cardiac medications include aspirin 81 mg daily, atorvastatin 20 mg daily, Imdur 30 mg daily and losartan 50 mg daily. She underwent cardiac catheterization initially in 2012 secondary to symptoms of unstable angina and received a stent to the mid LAD. Repeat catheterization was performed in 2013 revealing a widely patent stent in the LAD with no evidence of obstructive coronary artery disease. At the time of my exam: CONSTITUTIONAL: Denies fever. Denies chills. EYES: Denies blurred vision. Denies vision changes. Denies eye pain. EARS, NOSE, MOUTH & THROAT: Denies headache. Denies sore throat. Denies ear pain. CARDIOVASCULAR: Denies chest pain. Denies shortness of breath. Denies orthopnea. Denies PND. Denies palpitations. RESPIRATORY: Denies cough. GASTROINTESTINAL: Complains of epigastric pain. Denies abdominal pain. Denies diarrhea. Denies constipation. Denies nausea. Denies vomiting. MUSCULOSKELETAL: Denies myalgias. INTEGUMENTARY: Denies pruitis. Denies rash. NEUROLOGIC: Denies numbness. Denies tingling. Denies weakness. PSYCHIATRIC: Denies anxiety. Denies depression. ENDOCRINE: Denies fatigue. Denies weight change. Denies polydipsia. Denies polyurina. GENITOURINARY: Denies burning, hematuria or urgency with micturation. HEMATOLOGIC: Denies history of anemia. Denies bleeding. Blood pressure blood pressure 153/74 heart rate 83 afebrile maintaining oxygen saturation GENERAL: This is a 78-year-old female in no apparent distress at the time of my examination. HEENT: Head is atraumatic, normocephalic. Pupils are equal, round. Sclerae anicteric. Conjunctivae are clear. Mucous membranes of the mouth are moist. Neck is supple. There is no jugular venous distention. No carotid bruit is heard. LUNGS: Clear to auscultation no wheezes, rales or rhonchi. No chest wall tenderness is noted on palpation or with deep breathing. HEART: Regular rate and rhythm with systolic ejection murmur at the base, no rubs or gallops. S1 and S2 heard. ABDOMEN: Soft, epigastric tenderness on palpitation. Bowel sounds are heard. No organomegaly noted. EXTREMITIES: No evidence of peripheral edema and no calf tenderness noted. VASCULAR: Radial and dorsalis pedis pulses palpated, no evidence of clubbing. NEUROLOGIC: Patient is awake, alert and oriented x3. ASSESSMENT Acute pancreatitis Leukocytosis Chest/epigastric pain. Atypical for angina with epigastric tenderness. History of coronary artery disease s/p stent placement in the mid LAD 2012 Hypertension Dyslipidemia PLAN Echocardiogram has been obtained and will be reviewed. Obtain another troponin to rule out an acute event. Repeat an EKG. Resume aspirin, atorvastatin, imdur and losartan. Check lipid profile. Thank you kindly for this consultation. Nurse Practitioner note has been reviewed, I agree with a documented findings and plan of care. Patient was seen and examined. Past Medical History Past Medical History: Coronary Artery Disease (CAD), Hypertension, Osteoarthritis (OA) Additional Past Medical History / Comment(s): sepsis Hx. polyp in gallbladder Hx. frequent UTI, "headaches". "palitations", occular migraines History of Any Multi-Drug Resistant Organisms: None Reported Past Surgical History: Adenoidectomy, Heart Catheterization With Stent, Tonsillectomy, Tubal Ligation Additional Past Surgical History / Comment(s): Hx.benign lump removed from Left hand and tongue Past Anesthesia/Blood Transfusion Reactions: No Reported Reaction Date of Last Stent Placement:: 2012 Past Psychological History: No Psychological Hx Reported Smoking Status: Never smoker Past Alcohol Use History: None Reported Past Drug Use History: None Reported - Past Family History Mother Family Medical History: Cancer Additional Family Medical History / Comment(s): Mother at age 90 from uterine cancer. Father Family Medical History: Cancer Additional Family Medical History / Comment(s): Father at age 83 from prostate cancer and esophageal cancer. Brother(s) Family Medical History: Cancer Additional Family Medical History / Comment(s): Patient had a half-brother at age 60 from lung cancer. Sister(s) Family Medical History: Cancer Additional Family Medical History / Comment(s): Patient had a half sister that at age 69 from lung cancer. Daughter(s) History Unknown: Yes Family Medical History: CVA/TIA Additional Family Medical History / Comment(s): Patient has 4 daughters and one has of a stroke at age 33. Other daughters have hypertension. Son(s) History Unknown: Yes Family Medical History: Hypertension Additional Family Medical History / Comment(s): Patient has 3 sons all with hypertension. Medications and Allergies Home Medications Medication Instructions Recorded Confirmed Type Atorvastatin [Lipitor] 20 mg PO HS 02/24/14 12/05/18 History Isosorbide Mononitrate ER [Imdur] 30 mg PO DAILY 08/27/15 12/05/18 History Aspirin 81 mg PO DAILY 06/01/18 12/05/18 History Losartan [Cozaar] 50 mg PO HS 12/05/18 12/05/18 History Nitroglycerin Sl Tabs [Nitrostat] 0.4 mg SUBLINGUAL Q5M PRN 12/05/18 12/05/18 H istory Allergies Allergy/AdvReac Type Severity Reaction Status Date / Time No Known Allergies Allergy Verified 12/05/18 07:07 Physical Exam Vitals: Vital Signs Temp Pulse Resp BP Pulse Ox 12/05/18 05:44 98.0 F 83 16 153/74 97 12/05/18 03:55 98.0 F 84 18 169/102 95 Intake and Output 12/04/18 12/05/18 12/05/18 22:59 06:59 14:59 Other: Voiding Method Toilet Toilet # Voids 1 Weight 82.5 kg Results 12/05/18 09:25 12/05/18 09:25 Cardiac Enzymes 12/04/18 12/04/18 12/05/18 Range/Units 22:35 22:35 09:25 AST 56 H 50 H (14-36) U/L Troponin I <0.012 (0.000-0.034) ng/mL Coagulation 12/04/18 Range/Units 22:35 PT 10.5 (9.0-12.0) sec APTT 22.5 (22.0-30.0) sec CBC 12/04/18 12/05/18 Range/Units 22:35 09:25 WBC 10.0 11.5 H (3.8-10.6) k/uL RBC 4.81 5.12 (3.80-5.40) m/uL Hgb 14.2 15.4 (11.4-16.0) gm/dL Hct 43.8 47.2 H (34.0-46.0) % Plt Count 191 187 (150-450) k/uL Comprehensive Metabolic Panel 12/04/18 12/05/18 Range/Units 22:35 09:25 Sodium 139 142 (137-145) mmol/L Potassium 4.2 4.0 (3.5-5.1) mmol/L Chloride 108 H 110 H (98-107) mmol/L Carbon Dioxide 24 25 (22-30) mmol/L BUN 21 H 15 (7-17) mg/dL Creatinine 0.68 0.55 (0.52-1.04) mg/dL Glucose 111 H 92 (74-99) mg/dL Calcium 9.3 9.1 (8.4-10.2) mg/dL AST 56 H 50 H (14-36) U/L ALT 50 57 H (9-52) U/L Alkaline Phosphatase 107 119 (38-126) U/L Total Protein 7.0 7.6 (6.3-8.2) g/dL Albumin 3.7 4.2 (3.5-5.0) g/dL Current Medications Generic Name Dose Route Start Last Admin Trade Name Freq PRN Reason Stop Dose Admin Aspirin 81 mg 12/06/18 09:00 Aspirin PO DAILY KIN Atorvastatin Calcium 20 mg 12/05/18 21:00 Lipitor PO HS [facility] Sodium Chloride 1,000 mls @ 200 mls/hr 12/05/18 06:00 12/05/18 06:34 Saline 0.9% IV 200 mls/hr .Q5H [facility] Administration Isosorbide Mononitrate 30 mg 12/05/18 12:45 Imdur PO DAILY [facility] Losartan Potassium 50 mg 12/05/18 21:00 Cozaar PO HS [facility] Metoprolol Tartrate 12.5 mg 12/05/18 12:45 Lopressor PO BID [facility] Morphine Sulfate 4 mg 12/05/18 05:48 Morphine Sulfate (Inj) IVP Q4HR PRN Pain Ondansetron HCl 4 mg 12/05/18 05:48 Zofran IVP Q6HR PRN Nausea And Vomiting Intake and Output 12/04/18 12/05/18 12/05/18 22:59 06:59 14:59 Other: Voiding Method Toilet Toilet # Voids 1 Weight 82.5 kg 12/05/18 09:25 12/05/18 09:25
[2018-12-05] MEDS: ISOSORBIDE MONONITRATE ER 30 MG TAB.ER.24H PO SCH (13:56)
[2018-12-05] MEDS: METOPROLOL TARTRATE 12.5 MG TAB PO SCH ×2 (13:56→21:06)
--- NOTE | 2018-12-05 14:11 | US ---
EXAMINATION TYPE: US abdomen limited DATE OF EXAM: 12/05/2018 COMPARISON: US 04/30/2015, US 03/13/2014 CLINICAL HISTORY: acute pancreatitis. EXAM MEASUREMENTS: Liver Length: 12.7 cm Gallbladder Wall: 0.3 cm CBD: 0.7 cm Right Kidney: 9.7 x 4.1 x 4.1 cm Pancreas: Slightly heterogenous near the head although somewhat limited by overlying bowel gas. Liver: Coarse, heterogeneous echotexture. This most commonly relates to mild degree hepatic steatosi s. Gallbladder: No stones or sludge visualized. Wall measuring upper limits of normal Evidence for sonographic Bernal's sign: Yes CBD: Within normal limits for the patient's age, distal portion obscured by bowel gas Right Kidney: No hydronephrosis or masses seen IMPRESSION: 1. Pancreatic head is slightly obscured secondary to overlying bowel gas and slightly heterogenous ho wever no pancreatic ductal dilatation is seen. This could relate to the patient's known acute pancrea titis. No peripancreatic fluid collection. 2. Coarse heterogenous echotexture of the hepatic parenchyma most commonly relates to hepatic steatos is. Correlate with liver function tests. 3. Core Worker describes a positive sonographic Bernal's sign however no other sonographic evidence o f acute cholecystitis is noted. HIDA scan could be performed if there is further concern.
--- NOTE | 2018-12-05 14:17 | P.HPIM ---
History of Present Illness H&P Date: 12/05/18 Chief Complaint: Abdominal pain This is a 78-year-old female patient of Dr. Pang with a previous medical history significant for coronary artery disease status post the PCI of the LAD back in October 2012, hypertension and hypertensive cardiovascular disease with left ventricular hypertrophy, hyperlipidemia. Patient states that she was at a bowling banquet last evening and was feeling well until about 3 hours after that developed chest pain in the epigastric area around 9:30. She also had nausea and vomiting. She denies any weakness in her arms and legs. No fever or chills. Her daughter came and she was found to have a blood pressure of 200/114. She states she felt a little bit dizzy. Patient does have a gallbladder and place but history of polyps. She denies any alcohol use. She denies any black or tarry stools. Patient came into [facility] emergency center for evaluation. Her initial blood pressure was 129/102, she was afebrile, heart rate 84 and pulse ox 95% on room air. Lab work reveals a white count of 11.5, AST 50, ALT 57, alkaline phosphatase 119. Initially lipase 4381 and repeat at 705 this morning. Albumin 4.2. Creatinine 0.55. CTA of the chest was negative for pulmonary embolism. Patient was diagnosed with acute pancreatitis and [facility] with IV fluids, morphine for pain, Zofran and she was made nothing by mouth. Patient's daughter is asking for cardiology consult as patient does have coronary artery disease status post stenting of the LAD. Troponin in the emergency center was negative. Cardiology consult will be requested and echocardiogram ordered. Patient normally follows with Dr. Tyler. Review of Systems All systems: negative Constitutional: Reports poor appetite, Denies chills, Denies fatigue, Denies fever, Denies lethargy, Denies malaise, Denies weakness Eyes: denies blurred vision, denies pain Ears, nose, mouth and throat: Denies dysphagia, Denies headache, Denies nasal congestion, Denies nasal discharge, Denies sore throat, Denies vertigo Cardiovascular: Denies chest pain, Denies dyspnea on exertion, Denies edema, Denies lightheadedness, Denies shortness of breath, Denies syncope Respiratory: Denies cough Gastrointestinal: Reports abdominal pain, Reports loss of appetite, Reports nausea, Reports vomiting, Denies diarrhea Genitourinary: Denies dysuria, Denies hematuria Musculoskeletal: Denies frequent falls, Denies gait dysfunction, Denies muscle weakness, Denies myalgias Integumentary: Denies pruritus, Denies rash, Denies wounds Neurological: Denies aphasia, Denies change in mentation, Denies change in speech, Denies numbness, Denies seizures, Denies vertigo, Denies weakness Psychiatric: Denies anxiety, Denies depression Endocrine: Denies fatigue, Denies weight change Past Medical History Past Medical History: Coronary Artery Disease (CAD), Hypertension, Osteoarthritis (OA) Additional Past Medical History / Comment(s): sepsis Hx. polyp in gallbladder Hx. frequent UTI, "headaches". "palitations", occular migraines History of Any Multi-Drug Resistant Organisms: None Reported Past Surgical History: Adenoidectomy, Heart Catheterization With Stent, Tonsillectomy, Tubal Ligation Additional Past Surgical History / Comment(s): Hx.benign lump removed from Left hand and tongue Past Anesthesia/Blood Transfusion Reactions: No Reported Reaction Date of Last Stent Placement:: 2012 Past Psychological History: No Psychological Hx Reported Smoking Status: Never smoker Past Alcohol Use History: None Reported Past Drug Use History: None Reported - Past Family History Mother Family Medical History: Cancer Additional Family Medical History / Comment(s): Mother at age 90 from uterine cancer. Father Family Medical History: Cancer Additional Family Medical History / Comment(s): Father at age 83 from prostate cancer and esophageal cancer. Brother(s) Family Medical History: Cancer Additional Family Medical History / Comment(s): Patient had a half-brother at age 60 from lung cancer. Sister(s) Family Medical History: Cancer Additional Family Medical History / Comment(s): Patient had a half sister that at age 69 from lung cancer. Daughter(s) History Unknown: Yes Family Medical History: CVA/TIA Additional Family Medical History / Comment(s): Patient has 4 daughters and one has of a stroke at age 33. Other daughters have hypertension. Son(s) History Unknown: Yes Family Medical History: Hypertension Additional Family Medical History / Comment(s): Patient has 3 sons all with hypertension. Medications and Allergies Home Medications Medication Instructions Recorded Confirmed Type Atorvastatin [Lipitor] 20 mg PO HS 02/24/14 12/05/18 History Isosorbide Mononitrate ER [Imdur] 30 mg PO DAILY 08/27/15 12/05/18 History Aspirin 81 mg PO DAILY 06/01/18 12/05/18 History Losartan [Cozaar] 50 mg PO HS 12/05/18 12/05/18 History Nitroglycerin Sl Tabs [Nitrostat] 0.4 mg SUBLINGUAL Q5M PRN 12/05/18 12/05/18 History Allergies Allergy/AdvReac Type Severity Reaction Status Date / Time No Known Allergies Allergy Verified 12/05/18 07:07 Physical Exam Vitals: Vital Signs Temp Pulse Resp BP Pulse Ox 12/05/18 05:44 98.0 F 83 16 153/74 97 12/05/18 03:55 98.0 F 84 18 169/102 95 Intake and Output 12/04/18 12/05/18 12/05/18 22:59 06:59 14:59 Other: Voiding Method Toilet Toilet # Voids 1 Weight 82.5 kg General appearance: average body habitus, no acute distress - EENT Eyes: anicteric sclerae, EOMI, PERRLA, no ptosis, no scleral icterus, normal appearance ENT: hearing grossly normal, NA/AT, normal oropharynx, no thrush Ears: bilateral: normal - Neck Neck: no lymphadenopathy, normal ROM, no rigidity, no stridor, no thyromegaly Carotids: bilateral: upstroke normal Thyroid: bilateral: normal size - Respiratory Respiratory: bilateral: diminished, negative: dullness, rales, rhonchi, wheezing, prolonged expiration, prolonged inspiration - Cardiovascular Rhythm: regular Heart sounds: normal: S1, S2 Abnormal Heart Sounds: systolic murmur, no S3 Gallop, no S4 Gallop, no click - Gastrointestinal General gastrointestinal: normal bowel sounds, soft, no splenomegaly, epigastric tenderness, no umbilical hernia, no ventral hernia - Integumentary Integumentary: normal, normal turgor - Neurologic Neurologic: CNII-XII intact - Musculoskeletal Musculoskeletal: generalized weakness, strength equal bilaterally - Psychiatric Psychiatric: A&O x's 3, appropriate affect, intact judgment & insight Results CBC & Chem 7: 12/05/18 09:25 12/05/18 09:25 Labs: Abnormal Lab Results - Last 24 Hours (Table) 12/04/18 12/04/18 12/05/18 Range/Units 22:35 22:35 09:25 WBC 11.5 H (3.8-10.6) k/uL Hct 47.2 H (34.0-46.0) % D-Dimer 1.46 H (<0.60) mg/L FEU Chloride 108 H (98-107) mmol/L BUN 21 H (7-17) mg/dL Glucose 111 H (74-99) mg/dL AST 56 H (14-36) U/L ALT (9-52) U/L Lipase 4381 H (23-300) U/L 12/05/18 Range/Units 09:25 WBC (3.8-10.6) k/uL Hct (34.0-46.0) % D-Dimer (<0.60) mg/L FEU Chloride 110 H (98-107) mmol/L BUN (7-17) mg/dL Glucose (74-99) mg/dL AST 50 H (14-36) U/L ALT 57 H (9-52) U/L Lipase 705 H (23-300) U/L Thrombosis Risk Factor Assmnt - DVT/VTE Prophylaxis DVT/VTE Prophylaxis: Pharmacologic Prophylaxis ordered - Choose All That Apply Any of the Below Risk Factors Present?: No Other Risk Factors: Yes Each Risk Factor Represents 3 Points: Age 75 years or older Other congenital or acquired thrombophilia - If yes, enter type in comment: No Thrombosis Risk Factor Assessment Total Risk Factor Score: 3 Thrombosis Risk Factor Assessment Level: Moderate Risk Assessment and Plan Plan: 1. Acute pancreatitis. Patient is currently nothing by mouth. Continue IV fluids decreased 125 mL per hour, Zofran for nausea and morphine for pain. Recheck lipase in the morning. 2. Hypertensive urgency with Hypertension and hypertensive cardiovascular disease. Continue Cozaar 50 mg at bedtime, Lopressor 12.5 mg twice daily. 3. CAD post-PCI of the LAD. Continue Lipitor 20 mg daily, aspirin 81 mg daily, Imdur 30 mg orally once every day. 4. Hyperlipidemia. Continue patient on Lipitor 20 mg orally once every day. 5. Elevated d-dimer. CTA of the chest negative for pulmonary embolism. 6. DVT prophylaxis. Heparin 5000 units subcutaneously every 12 hours. 7. GI prophylaxis. Protonix. Patient is full code. Admit to inpatient estimate a length of stay 2 midnights. Discharge plan: Home Impression and plan of care have been directed as dictated by the signing physician. Radha Hayes nurse practitioner acting as scribe for signing physician.
--- NOTE | 2018-12-05 14:47 | P.CONS ---
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 Patient has been expressing intermittent heartburn over the last several months but exacerbated over the last week especially with meals. Denies gross hematemesis hematochezia or melena. No weight loss fever or chills. White count 10-11.5. Hemoglobin 14.2-15.4. Platelet 187. INR 1.0. BUN 21 creatinine 0.6. LFTs total bilirubin 0.5. AST 56. ALT 50. AP 107. Lipase 4381. Today lipase improved 705. Abdominal pain improved. Patient has no history of pancreatitis or known pancreatic disorders. No history of alcoholism or gallstones. No recent medication changes. Beta abdi was changed [address] chest no evidence of pulmonary embolus. Abdominal ultrasound pancreatic head slightly obscured no peripancreatic fluid collection. No gallstones. CBD 0.7 cm. Gallbladder wall 0.3 cm. Review of Systems Constitutional: Denies fever, chills, sweats, weight gain, or loss. HEENT: Negative for migraines, blurred vision or loss, earaches, drainage, tinnitus, oral mucosal lesions, dysphagia, or odynophagia. CARDIAC: Negative for chest pain, arrhythmias, or palpitation. RESPIRATORY: Negative for shortness of breath, hemoptysis, cough, or sputum production. GI: See HPI for pertinent findings. : Negative for hematuria, urgency, frequency, polyuria, or dysuria. GYNc: Denies possibility of . Negative vaginal discharge. MUSCULOSKELETAL: Negative for muscle aches, swelling, arthritis, and a rthralgias. NEUROLOGIC: Negative for stroke or TIA. ENDOCRINE: Negative for thyroid problems. SKIN: Negative for rash or itching. PSYCHIATRIC: Negative history for depression and anxiety Past Medical History Past Medical History: Coronary Artery Disease (CAD), Hypertension, Osteoarthritis (OA) Additional Past Medical History / Comment(s): sepsis Hx. polyp in gallbladder Hx. frequent UTI, "headaches". "palitations", occular migraines History of Any Multi-Drug Resistant Organisms: None Reported Past Surgical History: Adenoidectomy, Heart Catheterization With Stent, Tonsillectomy, Tubal Ligation Additional Past Surgical History / Comment(s): Hx.benign lump removed from Left hand and tongue Past Anesthesia/Blood Transfusion Reactions: No Reported Reaction Date of Last Stent Placement:: 2012 Past Psychological History: No Psychological Hx Reported Smoking Status: Never smoker Past Alcohol Use History: None Reported Past Drug Use History: None Reported - Past Family History Mother Family Medical History: Cancer Additional Family Medical History / Comment(s): Mother at age 90 from uterine cancer. Father Family Medical History: Cancer Additional Family Medical History / Comment(s): Father at age 83 from prostate cancer and esophageal cancer. Brother(s) Family Medical History: Cancer Additional Family Medical History / Comment(s): Patient had a half-brother at age 60 from lung cancer. Sister(s) Family Medical History: Cancer Additional Family Medical History / Comment(s): Patient had a half sister that at age 69 from lung cancer. Daughter(s) History Unknown: Yes Family Medical History: CVA/TIA Additional Family Medical History / Comment(s): Patient has 4 daughters and one has of a stroke at age 33. Other daughters have hypertension. Son(s) History Unknown: Yes Family Medical History: Hypertension Additional Family Medical History / Comment(s): Patient has 3 sons all with hypertension. Medications and Allergies Home Medications Medication Instructions Recorded Confirmed Type Atorvastatin [Lipitor] 20 mg PO HS 02/24/14 12/05/18 History Isosorbide Mononitrate ER [Imdur] 30 mg PO DAILY 08/27/15 12/05/18 History Aspirin 81 mg PO DAILY 06/01/18 12/05/18 History Losartan [Cozaar] 50 mg PO HS 12/05/18 12/05/18 History Nitroglycerin Sl Tabs [Nitrostat] 0.4 mg SUBLINGUAL Q5M PRN 12/05/18 12/05/18 History Allergies Allergy/AdvReac Type Severity Reaction Status Date / Time No Known Allergies Allergy Verified 12/05/18 07:07 Physical Exam Vitals: Vital Signs Temp Pulse Resp BP Pulse Ox 12/05/18 05:44 98.0 F 83 16 153/74 97 12/05/18 03:55 98.0 F 84 18 169/102 95 Intake and Output 12/04/18 12/05/18 12/05/18 22:59 06:59 14:59 Other: Voiding Method Toilet Toilet # Voids 1 Weight 82.5 kg General appearance: The patient is alert, oriented, in no acute distress. HET: Head is normocephalic and atraumatic. Pupils are equal and reactive. Oropharynx is clear without lesions. Neck: Supple without lymphadenopathy. Trachea midline. Heart: S1 S2. Regular rate and rhythm. Lungs: No crackles or wheezes are heard. Abdomen: Soft, very mild epigastric tenderness, nondistended with bowel sounds. No peritoneal signs. No palpable organomegaly or masses. Extremities: Normal skin color and turgor. No cyanosis, rash, ulceration, clubbing, or edema. Radial and pedal pulses are 2/4 bilaterally. Neurological: No focal deficits. Strength and sensation are grossly intact. Results CBC & Chem 7: 12/05/18 09:25 12/06/18 08:25 Labs: Abnormal Lab Results - Last 24 Hours (Table) 12/04/18 12/04/18 12/05/18 Range/Units 22:35 22:35 09:25 WBC 11.5 H (3.8-10.6) k/uL Hct 47.2 H (34.0-46.0) % D-Dimer 1.46 H (<0.60) mg/L FEU Chloride 108 H (98-107) mmol/L BUN 21 H (7-17) mg/dL Glucose 111 H (74-99) mg/dL AST 56 H (14-36) U/L ALT (9-52) U/L Lipase 4381 H (23-300) U/L 12/05/18 Range/Units 09:25 WBC (3.8-10.6) k/uL Hct (34.0-46.0) % D-Dimer (<0.60) mg/L FEU Chloride 110 H (98-107) mmol/L BUN (7-17) mg/dL Glucose (74-99) mg/dL AST 50 H (14-36) U/L ALT 57 H (9-52) U/L Lipase 705 H (23-300) U/L CT scan - chest: report reviewed (Dr. Tucker) US - abdomen: report reviewed (Dr. Tucker) Assessment and Plan (1) Acute pancreatitis Narrative/Plan: 78 year old female admitted with acute pancreatitis first documented episode of unclear etiology. Abdominal imaging reported no evidence of gallstones or biliary tree pathology. Marked improvement of pancreatic enzymes are last 24 hours with stable liver enzymes. Increased GERD-like symptoms 6 months exacerbated over the last week underlying peptic ulcer disease induced pancreatitis cannot be excluded. Other differentials to consider but not excluded is autoimmune pancreatitis. Current Visit: Yes Status: Acute Code(s): K85.90 - ACUTE PANCREATITIS WITH OUT NECROSIS OR INFECTION, UNSP SNOMED Code(s): 392869811 Plan: 1. Will allow clear liquids. Inpatient EGD discussed. We'll obtain IgG subcl ass 1-4 and JOJO. We'll check triglycerides. Daily monitoring of CBC CMP and lipase. Will follow closely with you. Continue with GI prophylaxis. Thank you for this kind referral and the opportunity to participate in the care of your patient. This consultation was discussed with Dr. Tucker. The impression and plan of care have been directed as dictated.
[2018-12-05] MEDS ORDERED: ATORVASTATIN 20 MG TAB PO SCH (21:00)
[2018-12-05] MEDS ORDERED: LOSARTAN 50 MG TAB PO SCH (21:00)
[2018-12-05] MEDS: HEPARIN SODIUM,PORCINE 5,000 UNIT/ML 1 ML VIAL SQ SCH (21:06)
[2018-12-06] MEDS: HEPARIN SODIUM,PORCINE 5,000 UNIT/ML 1 ML VIAL SQ SCH (08:10)
[2018-12-06] MEDS: METOPROLOL TARTRATE 12.5 MG TAB PO SCH (08:10)
[2018-12-06] MEDS: SODIUM CHLORIDE 0.9% 1,000 ML IV SCH ×2 (08:10→13:55)
[2018-12-06] MEDS: ISOSORBIDE MONONITRATE ER 30 MG TAB.ER.24H PO SCH (08:10)
[2018-12-06] MEDS ORDERED: ASPIRIN 81 MG PO SCH (09:00)
[2018-12-06] MEDS ORDERED: PANTOPRAZOLE 40 MG/10 ML VIAL IVP SCH (09:00)
[2018-12-06 09:43] LABS: ALT 39 U/L (9-52); AST 34 U/L (14-36); Albumin 3.3 g/dL (3.5-5.0); Alkaline Phosphatase 90 U/L (38-126); Anion Gap 6 mmol/L; Blood Urea Nitrogen 11 mg/dL (7-17); Calcium 8.6 mg/dL (8.4-10.2); Carbon Dioxide 26 mmol/L (22-30); Chloride 108 mmol/L (98-107); Cholesterol 110 mg/dL (<200); Glucose 130 mg/dL (74-99); HDL Cholesterol 45 mg/dL (40-60); LDL Cholesterol,Calculated 44 mg/dL (0-99); Lipase 182 U/L (23-300); Potassium 3.7 mmol/L (3.5-5.1); Sodium 140 mmol/L (137-145); Total Protein 6.3 g/dL (6.3-8.2); Triglycerides 107 mg/dL (<150)
--- NOTE | 2018-12-06 10:19 | P.PN ---
Subjective Progress Note Date: 12/06/18 Principal diagnosis: Pancreatitis Feels better. Tolerating clear liquids. Lipase normalized. LFTs within normal limits. Objective - Vital Signs Vital signs: Vital Signs Temp 98.0 F 12/06/18 04:45 Pulse 58 L 12/06/18 04:45 Resp 20 12/06/18 04:45 BP 151/81 12/06/18 04:45 Pulse Ox 96 12/06/18 04:45 Intake & Output 12/05/18 12/06/18 12/06/18 18:59 06:59 18:59 Other: Voiding Method Toilet Toilet # Voids 3 3 - Exam General appearance: The patient is alert, oriented, in no acute distress. HET: Head is normocephalic and atraumatic. Pupils are equal and reactive. Oropharynx is clear without lesions. Neck: Supple without lymphadenopathy. Trachea midline. Heart: S1 S2. Regular rate and rhythm. Lungs: No crackles or wheezes are heard. Abdomen: Soft, mild left upper quadrant tenderness, nondistended with bowel sounds. No peritoneal signs. No palpable organomegaly or masses. Extremities: Normal skin color and turgor. No cyanosis, rash, ulceration, clubbing, or edema. Radial and pedal pulses are 2/4 bilaterally. Neurological: No focal deficits. Strength and sensation are grossly intact. - Labs CBC & Chem 7: 12/05/18 09:25 12/06/18 08:25 Labs: Abnormal Lab Results - Last 24 Hours (Table) 12/06/18 Range/Units 08:25 Chloride 108 H (98-107) mmol/L Glucose 130 H (74-99) mg/dL Albumin 3.3 L (3.5-5.0) g/dL Assessment and Plan (1) Acute pancreatitis Narrative/Plan: 78 year old female admitted with acute pancreatitis first documented episode of unclear etiology. Abdominal imaging reported no evidence of gallstones or biliary tree pathology. Marked improvement of pancreatic enzymes are last 24 hours with stable liver enzymes. Increased GERD-like symptoms 6 months exacerbated over the last week underlying peptic ulcer disease induced pancreat itis cannot be excluded. Other differentials to consider but not excluded is autoimmune pancreatitis. Current Visit: Yes Status: Acute Code(s): K85.90 - ACUTE PANCREATITIS WITHOUT NECROSIS OR INFECTION, UNSP SNOMED Code(s): 968166929 Plan: 1. Advance to low-fat diet. Return to office in 2-3 weeks for reevaluation and discussion of outpatient EGD per Dr. Tucker's recommendations. Discharge per medicine if diet as tolerated. Assessment and plan a care discussed with Dr. Tucker
--- NOTE | 2018-12-06 11:35 | ECHOF ---
Referral Reason:LVF MEASUREMENTS -------- HEIGHT: 165.1 cm WEIGHT: 82.1 kg BP: 153/74 RVIDd: 3.2 cm (< 3.3) IVSd: 1.4 cm (0.6 - 1.1) LVIDd: 3.8 cm (3.9 - 5.3) LVPWd: 1.4 cm (0.6 - 1.1) IVSs: 1.9 cm LVIDs: 2.7 cm LVPWs: 1.6 cm LA Diam: 3.5 cm (2.7 - 3.8) LAESV Index (A-L): 24.60 ml/m Ao Diam: 3.5 cm (2.0 - 3.7) AV Cusp: 1.0 cm (1.5 - 2.6) EPSS: 0.4 cm MV E [place]: 0.80 m/s MV DecT: 260 ms MV A [place]: 1.20 m/s MV E/A Ratio: 0.67 AV maxP.27 mmHg AV meanP.42 mmHg AR PHT: 652 ms RAP: 5.00 mmHg RVSP: 31.24 mmHg MV EF SLOPE: 42.28 mm/s (70 - 150) MV EXCURSION: 1.18 cm (> 18.000) FINDINGS -------- Sinus rhythm. This was a technically adequate study. The left ventricular size is normal. There is moderate concentric left ventricular hypertrophy. O verall left ventricular systolic function is normal with, an EF between 60 - 65 %. The right ventricle is normal in size. Normal LA size by volume 22+/-6 ml/m2. The right atrium is normal in size. There is mild aortic valve sclerosis. There is mild aortic regurgitation. There is mild aortic st enosis present. Peak/mean gradient across the Aortic Valve is 17.27mmHg / 8.42mmHg. The mitral valve leaflets are mildly thickened. Mild mitral annular calcification present. Mild tricuspid regurgitation present. Right ventricular systolic pressure is normal at < 35 mmHg. Trace/mild (physiologic) pulmonic regurgitation. The aortic root size is normal. Normal inferior vena cava with normal inspiratory collapse consistent with estimated right atrial pre ssure of 5 mmHg. There is no pericardial effusion. CONCLUSIONS -------- 1. Sinus rhythm. 2. This was a technically adequate study. 3. The left ventricular size is normal. 4. There is moderate concentric left ventricular hypertrophy. 5. Overall left ventricular systolic function is normal with, an EF between 60 - 65 %. 6. The right ventricle is normal in size. 7. Normal LA size by volume 22+/-6 ml/m2. 8. The right atrium is normal in size. 9. There is mild aortic valve sclerosis. 10. There is mild aortic regurgitation. 11. There is mild aortic stenosis present. 12. Peak/mean gradient across the Aortic Valve is 17.27mmHg / 8.42mmHg. 13. The mitral valve leaflets are mildly thickened. 14. Mild mitral annular calcification present. 15. Mild tricuspid regurgitation present. 16. Right ventricular systolic pressure is normal at < 35 mmHg. 17. Trace/mild (physiologic) pulmonic regurgitation. 18. The aortic root size is normal. 19. Normal inferior vena cava with normal inspiratory collapse consistent with estimated right atrial pressure of 5 mmHg. 20. There is no pericardial effusion. SOUND INSTALLATION WORKER: ALFREDO Howell
[2018-12-06 13:29] VITALS: BP 138/74; PULSE 57; RESP 18; TEMP 97.7
--- NOTE | 2018-12-06 14:00 | P.DS ---
Providers Date of admission: 12/05/18 02:17 Attending physician: Terra Milligan MD Consults: 12/05/18 05:46 Consult Physician Routine Consulting Provider: Dave Tucker Consult Reason/Comments: pancreatitis Do you want consulting provider notified?: Yes, Notify in am Placement Type Exists?: Yes 12/05/18 11:59 Consult Physician Routine Consulting Provider: Marbin Tyler Consult Reason/Comments: chest pain, hx stent Do you want consulting provider notified?: Yes Primary care physician: Charly Pang [facility] Hospital Course: This is a 78-year-old female patient of Dr. Pang with a previous medical history significant for coronary artery disease status post the PCI of the LAD back in October 2012, hypertension and hypertensive cardiovascular disease with left ventricular hypertrophy, hyperlipidemia. Patient states that she was at a bowling banquet last evening and was feeling well until about 3 hours after that developed chest pain in the epigastric area around 9:30. She also had nausea and vomiting. She denies any weakness in her arms and legs. No fever or chills. Her daughter came and she was found to have a blood pressure of 200/114. She states she felt a little bit dizzy. Patient does have a gallbladder and place but history of polyps. She denies any alcohol use. She denies any black or tarry stools. Patient came into [facility] emergency center for evaluation. Her initial blood pressure was 129/102, she was afebrile, heart rate 84 and pulse ox 95% on room air. Lab work reveals a white count of 11.5, AST 50, ALT 57, alkaline phosphatase 119. Initially lipase 4381 and repeat at 705 this morning. Albumin 4.2. Creatinine 0.55. CTA of the chest was negative for pulmonary embolism. Patient was diagnosed with acute pancreatitis and admitted to the [facility] floor with IV fluids, morphine for pain, Zofran and she was made nothing by mouth. Patient's daughter is asking for cardiology consult as patient does have coronary artery disease status post stenting of the LAD. Troponin in the emergency center was negative. Cardiology consult will be requested and echocardiogram ordered. Patient normally follows with Dr. Tyler. / patient examined bedside doing well. Lab evaluated lipase normalized to 182. Patient evaluated by patient intake representative will be evaluated for endoscopy as outpatient in 4-6 weeks. Triglycerides normal, no history of alcohol no gallstones seen on ultrasound abdomen. Concern for positive Bernal sign but no plan for MRCP as per patient intake representative. Echo obtained no valvular or wall abnormality seen EF 60-65%. Etiology of pancreatitis is unclear. Discharge diagnoses #1 acute pancreatitis likely viral #2 hypertensive urgency with hypertensive cardiovascular disease #3 coronary artery disease status post-PCI of LAD #4 hyperlipidemia CC a copy of discharge to Dr. Blanton Disposition home with self care Patient Condition at Discharge: Good Plan - Discharge Summary Discharge Rx Participant: No New Discharge Prescriptions: New Pantoprazole [Protonix] 40 mg PO DAILY #30 tablet. Metoprolol Tartrate [Lopressor] 12.5 mg PO BID #60 tab Continue Atorvastatin [Lipitor] 20 mg PO HS Isosorbide Mononitrate ER [Imdur] 30 mg PO DAILY Aspirin 81 mg PO DAILY Nitroglycerin Sl Tabs [Nitrostat] 0.4 mg SUBLINGUAL Q5M PRN PRN Reason: CHEST PAIN Changed Losartan [Cozaar] 25 mg PO HS #0 Discharge Medication List Atorvastatin [Lipitor] 20 mg PO HS 02/24/14 [History] Isosorbide Mononitrate ER [Imdur] 30 mg PO DAILY 08/27/15 [History] Aspirin 81 mg PO DAILY 06/01/18 [History] Nitroglycerin Sl Tabs [Nitrostat] 0.4 mg SUBLINGUAL Q5M PRN 12/05/18 [History] Losartan [Cozaar] 25 mg PO HS #0 12/06/18 [Rx] Metoprolol Tartrate [Lopressor] 12.5 mg PO BID #60 tab 12/06/18 [Rx] Pantoprazole [Protonix] 40 mg PO DAILY #30 tablet. 12/06/18 [Rx] Follow up Appointment(s)/Referral(s): Dave Tucker MD [STAFF PHYSICIAN] - 2 Weeks Patient Instructions/Handouts: Pancreatitis (DC)
--- NOTE | 2018-12-06 14:20 | P.PN ---
Subjective This is a pleasant 78-year-old female past medical history significant for coronary artery disease status post stent placement to the mid LAD in 2012, hypertension and arthritis. She follows in the office with Dr. Espinoza. She is currently being treated for pancreatitis. We are following for chest pain. She is seen and examined resting comfortably in bed in no acute distress. She denies any further chest or epigastric discomfort. Ultrasound of the abdomen revealed positive Bernal sign with no evidence of acute cholecystitis, no pancreatic ductal dilation and hepatic steatosis. Cardiac enzymes obtained are negative 2. Lipid profile reveals LDL 44, HDL 45. Lipase repeat 182. Repeat EKG reveals sinus mechanism with no acute ST or T wave abnormalities noted. Blood pressure 138/74 heart rate 57 afebrile maintaining oxygen saturation on room air. GENERAL: This is a 78-year-old female in no apparent distress at the time of my examination. HEENT: Head is atraumatic, normocephalic. Pupils are equal, round. Sclerae anicteric. Conjunctivae are clear. Mucous membranes of the mouth are moist. Neck is supple. There is no jugular venous distention. No carotid bruit is heard. LUNGS: Clear to auscultation no wheezes, rales or rhonchi. No chest wall tenderness is noted on palpation or with deep breathing. HEART: Regular rate and rhythm with systolic ejection murmur at the base, no rubs or gallops. S1 and S2 heard. ABDOMEN: Soft, no tenderness on palpitation. Bowel sounds are heard. No organomegaly noted. EXTREMITIES: No evidence of peripheral edema and no calf tenderness noted. ASSESSMENT Acute pancreatitis Leukocytosis Chest/epigastric pain. Atypical for angina with epigastric tenderness. History of coronary artery disease s/p stent placement in the mid LAD 2012 Hypertension Dyslipidemia PLAN Stable from a cardiac perspective. We will continue to follow as needed. Follow-up with Dr. Nayeli singh. Nurse Practitioner note has been reviewed, I agree with a documented findings and plan of care. Patient was seen and examined. Objective - Vital Signs Vital signs: Vital Signs Temp 97.7 F 12/06/18 13:28 Pulse 57 L 12/06/18 13:28 Resp 18 12/06/18 13:28 BP 138/74 12/06/18 13:28 Pulse Ox 93 L 12/06/18 13:28 Intake & Output 12/05/18 12/06/18 12/06/18 18:59 06:59 18:59 Intake Total 1000 Balance 1000 Intake: IV 1000 Sodium Chloride 0.9% 1, 1000 000 ml @ 125 mls/hr IV . Q8H [facility] Rx#:[id number] Other: Voiding Method Toilet Toilet # Voids 3 3 3 - Labs CBC & Chem 7: 12/05/18 09:25 12/06/18 08:25 Labs: Abnormal Lab Results - Last 24 Hours (Table) 12/06/18 Range/Units 08:25 Chloride 108 H (98-107) mmol/L Glucose 130 H (74-99) mg/dL Albumin 3.3 L (3.5-5.0) g/dL
[2018-12-07] MEDS ORDERED: PANTOPRAZOLE 40 MG TABLET PO SCH (09:00)
[2018-12-07 10:11] LABS: IgG Subclass 3 31.5 mg/dL (11.0-85.0); IgG Subclass 4 18.9 mg/dL (3.0-175.0)
[2018-12-08 08:28] LABS: ANA Pattern Speckled
== END 2018-12-06 15:39 | disposition home or self-care (01) | DRG 440 ==
LOC: EC 22:30 → 4MS4W 12-05 02:17 → UNDOADMIN 12-05 02:17 → UNDODISIN 12-06 15:39
PROVIDERS: ADMIT Internal Medicine; ATTEND Internal Medicine
DX: K85.90 Acute pancreatitis without necrosis or infection, unspecified (principal); I11.9 Hypertensive heart disease without heart failure; K85.80 Other acute pancreatitis without necrosis or infection; I16.0 Hypertensive urgency; I25.10 Atherosclerotic heart disease of native coronary artery without angina pectoris; R79.89 Other specified abnormal findings of blood chemistry; E78.5 Hyperlipidemia, unspecified; G43.109 Migraine with aura, not intractable, without status migrainosus; M19.90 Unspecified osteoarthritis, unspecified site; K27.9 Peptic ulcer, site unspecified, unspecified as acute or chronic, without hemorrhage or perforation; Z79.82 Long term (current) use of aspirin; Z79.899 Other long term (current) drug therapy; Z95.5 Presence of coronary angioplasty implant and graft; Z87.440 Personal history of urinary (tract) infections; Z80.0 Family history of malignant neoplasm of digestive organs; Z80.1 Family history of malignant neoplasm of trachea, bronchus and lung; Z80.49 Family history of malignant neoplasm of other genital organs; Z82.49 Family history of ischemic heart disease and other diseases of the circulatory system
CPT/HCPCS: 71275; 76705; 80053; 80061; 82550; 82787; 83690; 83880; 84484; 85025; 85379; 85610; 85730; 86038; 86039; 93306; 99285

== ENCOUNTER → 2018-12-21 | Outpatient (CLI) | payer MEDICARE ==
--- NOTE | 2018-12-22 15:42 | NM ---
EXAMINATION TYPE: NM hepatobiliary w EF DATE OF EXAM: 12/21/2018 COMPARISON: HIDA scan 2010. Limited abdominal ultrasound December 05, 2018 HISTORY: Acute cholecystitis and pancreatitis per order. Epigastric pain with diminished appetite [place] and heartburn-like symptoms per patient. TECHNIQUE: After the intravenous administration of 4.36 mCi Tc 99m Mebrofenin hepatobiliary scintigra phy is performed. Immediate images post injection. FINDINGS: There is satisfactory initial accumulation of tracer by the liver. The gallbladder is visualized wit hin 35 minutes. The small bowel activity is noted within 35 minutes. At one hour 8 ounces of oral e nsure plus is given to mimic CCK and gallbladder ejection fraction is calculated at 77 %, in the norm al range. Therefore there is no scintigraphic evidence of cystic or common bile duct obstruction to suggest acute cholecystitis or gallbladder dyskinesia. IMPRESSION: Exam is within normal limits.
== END | disposition home or self-care (01) ==
LOC: RADNMMAIN 14:33
PROVIDERS: ATTEND Family Medicine
DX: K86.1 Other chronic pancreatitis (principal); K81.0 Acute cholecystitis
CPT/HCPCS: 78226; A9537

== ENCOUNTER → 2019-03-08 | Outpatient (CLI) | payer MEDICARE ==
--- NOTE | 2019-03-08 12:48 | CT ---
EXAMINATION TYPE: CT pancreas biphase DATE OF EXAM: 03/08/2019 COMPARISON: Ultrasound the abdomen dated 12/05/2018 HISTORY: Idiopathic acute pancreatitis without necrosis CT DLP: 1440 mGycm Automated exposure control for dose reduction was used. CT of the abdomen pancreas protocol was perfo rmed before and after the use of intravenous contrast. 100 mL of Isovue-370 was injected intravenousl y. FINDINGS: Scattered intraparenchymal blebs in the lung bases. No pleural effusion. Small hiatal hernia. Trace pericardial effusion. Mild irregular contour and nodularity of the surface of the liver suggestive of cirrhosis. No intrahe patic lesion. Gallbladder appears normal without evidence of intrahepatic or extrahepatic biliary dilatation. Spleen appears normal. Adrenal glands appear normal. Trace amount of perihepatic and perisplenic ascites. Pancreas appears normal. Pancreatic duct is normal in size measuring 2.4 cm. No evidence of surroundi ng inflammatory changes. Symmetric perfusion of the bilateral kidneys small cysts are seen in the left kidney with the largest exophytic upper pole cyst measuring 2.0 cm. Scattered calcified atheromatous disease throughout the visualized vasculature. Minimal anterolisthes is of L4 and L5. Vacuum disc phenomenon at L2-3. IMPRESSION: PANCREAS APPEARS NORMAL. NO EVIDENCE OF PANCREATITIS. PANCREATIC DUCT IS NORMAL IN SIZE. LIVER CIRRHOSIS. TRACE AMOUNT OF PERIHEPATIC AND PERISPLENIC SPLENIC ASCITES.
== END ==
LOC: RADCTMAIN 08:22
PROVIDERS: ATTEND Internal Medicine
DX: K74.60 Unspecified cirrhosis of liver (principal); K86.1 Other chronic pancreatitis
CPT/HCPCS: 82565; 84520; 36415; 74160; Q9967

== ENCOUNTER 2019-03-26 08:22 | Day surgery (SDC) | payer MEDICARE ==
[2019-03-21 11:03] VITALS: BMI 31.6
[~2019-03-26 08:22] MED LIST: LACTATED RINGERS 1,000 ML IV SCH
[2019-03-26 08:48] VITALS: RESP 16; TEMP 96.9
[2019-03-26] MEDS ORDERED: LIDOCAINE 1% INJ 10MG/ML (20 ML MDV) ONE (09:01)
[2019-03-26] MEDS ORDERED: PROPOFOL 10 MG/ML 20 ML VIAL IV ONE (09:01)
--- NOTE | 2019-03-26 09:21 | P.PCN ---
Date of Procedure: 03/26/19 Description of Procedure: BRIEF HISTORY: 78-year-old female who presents for outpatient EGD. Initially patient was seen in the hospital due to complaints of abdominal pain and being found to have acute uncomplicated pancreatitis. Evaluation with computed tomography scan of the abdomen, ultrasound and HIDA were negative for biliary pathology. An 8 testing was positive however IgG4 levels were not suggestive of autoimmune pancreatitis. Follow-up pancreatic protocol CT was negative for pancreatic cysts or ductal abnormalities however there were findings of cirrhotic changes of the liver. She has a known history of GERD controlled with Protonix daily. Currently undergoing workup for cirrhosis with likely etiology being nonalcoholic fatty liver disease. PROCEDURE PERFORMED: Esophagogastroduodenoscopy with biopsy. PREOPERATIVE DIAGNOSIS: GERD, cirrhosis. ESTIMATED BLOOD LOSS: Minimal. IV sedation per anesthesia. PROCEDURE: After informed consent was obtained, the patient was brought into the endoscopy unit. IV sedation was administered by Anesthesia under continuous monitoring. Initially the Olympus GIF-190 video endoscope was inserted into the mouth. Esophagus intubated without any difficulty. It was gradually advanced into the stomach and duodenum and carefully examined. The bulb and the second part of the duodenum appeared normal, with biopsies taken. The scope at this time was withdrawn to the stomach, adequately insufflated with air, and upon careful examination, mucosa of the antrum, body, cardia and the fundus appeared normal, with mild scattered erythema in the antrum and body suggestive of mild gastritis and a nonbleeding antral ulcer without high-risk stigmata for rebleeding with biopsies of the antrum and body take him. The scope was then withdrawn into the esophagus. The GE junction was located at 38 cm from the incisors. The esophagus appeared normal, with no varices noted. There were no erosions or ulcerations seen and the patient tolerated the procedure well. IMPRESSION: 1. Mild gastritis antrum and body, and nonbleeding superficial antral ulcer with biopsies of antrum and body take him. 2. Duodenal biopsies. 3. No varices noted. RECOMMENDATIONS: The findings of this examination were discussed with the patient and her friend. Would increase Protonix to 40 mg twice daily for 6-8 weeks, then can be titrated back down to daily. Await pathology from biopsies. Repeat EGD in 2 years for variceal screening.
[2019-03-26 09:40] VITALS: BP 136/70; PULSE 56
== END 2019-03-26 10:02 | disposition home or self-care (01) ==
LOC: ORWHC2ENDO 08:22
PROVIDERS: ATTEND Internal Medicine
DX: K29.50 Unspecified chronic gastritis without bleeding (principal); K21.9 Gastro-esophageal reflux disease without esophagitis; K74.60 Unspecified cirrhosis of liver; K25.9 Gastric ulcer, unspecified as acute or chronic, without hemorrhage or perforation; G43.909 Migraine, unspecified, not intractable, without status migrainosus; I10 Essential (primary) hypertension; E78.5 Hyperlipidemia, unspecified; Z95.5 Presence of coronary angioplasty implant and graft; I25.10 Atherosclerotic heart disease of native coronary artery without angina pectoris; Z79.82 Long term (current) use of aspirin; Z79.899 Other long term (current) drug therapy
CPT/HCPCS: 88305; 43239; J2001; J2704

== ENCOUNTER → 2019-07-29 | Outpatient (CLI) | payer MEDICARE ==
--- NOTE | 2019-07-29 09:52 | US ---
EXAMINATION TYPE: US abdomen complete DATE OF EXAM: 07/29/2019 COMPARISON: CT dated 03/08/2019 CLINICAL HISTORY: K74.69 OTHER CIRRHOSIS OF LIVER. Cryptogenic cirrhosis of liver; prior pancreatitis ; HTN EXAM MEASUREMENTS: Liver Length: 12.7 cm Gallbladder Wall: 0.2 cm CBD: 0.6 cm Spleen: 10.7 cm Right Kidney: 9.7 x 4.7 x 3.7 cm Left Kidney: 10.5 x 6.2 x 4.1 cm Pancreas: texture is wnl Liver: nodular borders especially in prominent left lobe; heterogeneous echo texture; blood flow in Hepatic Veins is to IVC, Main Portal Vein flow and Common Hepatic Artery Flow is to Liver Gallbladder: wnl Evidence for sonographic Bernal's sign: no CBD: wnl and size is age appropriate Spleen: wnl Right Kidney: No hydronephrosis or masses seen Left Kidney: cortical cyst noted mid pole = 1.8 x 1.5 x 1.5cm Upper IVC: wnl Abd Aorta: size wnl; intimal wall thickening noted distally and into common iliac arteries The liver is homogenous. The intrahepatic portion of the IVC and proximal abdominal aorta are within normal limits. There is no evidence of cholelithiasis. Common bile duct is unremarkable. The visu alized portions of the pancreas are homogenous. The spleen is unremarkable. Kidneys are symmetric a nd free of hydronephrosis. No suspicious renal lesions are seen. IMPRESSION: 1. Cirrhotic morphology of the liver. Appropriate directionality of blood flow within the hepatic vei ns, portal vein, and hepatic artery. 2. Incidentally noted 1.8 cm left renal cyst.
== END | disposition home or self-care (01) ==
LOC: RADUSWWP 08:43
PROVIDERS: ATTEND Internal Medicine
DX: K74.69 Other cirrhosis of liver (principal)
CPT/HCPCS: 76700

== ENCOUNTER → 2019-08-19 | Outpatient (CLI) | payer MEDICARE ==
[2019-08-19 15:00] LABS: Basophils # (A) 0.1 k/uL (0-0.2); Basophils % (A) 1 %; Eosinophils # (A) 0.2 k/uL (0-0.7); Eosinophils % (A) 2 %; HGB 14.3 gm/dL (11.4-16.0); Lymphocytes # (A) 3.6 k/uL (1.0-4.8); Lymphocytes % (A) 47 %; MCH 29.2 pg (25.0-35.0); MCHC 31.8 g/dL (31.0-37.0); MCV 91.8 fL (80.0-100.0); Mean Platelet Volume 7.8; Monocytes # (A) 0.4 k/uL (0-1.0); Monocytes % (A) 5 %; Neutrophils # (A) 3.2 k/uL (1.3-7.7); Neutrophils % (A) 42 %; Platelet Count 180 k/uL (150-450); RDW 13.4 % (11.5-15.5); WBC 7.6 k/uL (3.8-10.6)
[2019-08-19 15:23] LABS: INR 1.1 (<1.2); Prothrombin Time 10.8 sec (9.0-12.0)
[2019-08-19 18:36] LABS: % Iron Saturation 32.19 (12.00-45.00); African American GFR (CKD) 71.5 (60.0-200.0); Albumin/Globulin Ratio 1.6 (1.60-3.17); Calcium 9.1 mg/dL (8.7-10.3); Globulin 2.5 g/dL (1.6-3.3); Non-African American GFR(CKD) 61.7 (60.0-200.0); Potassium 4.1 mmol/L (3.5-5.5); Total Bilirubin 0.6 mg/dL (0.2-1.2); Total Protein 6.5 g/dL (6.2-8.2)
[2019-08-19 18:44] LABS: Ferritin 104.8 ng/mL (10.0-291.0)
[2019-08-19 23:53] LABS: Hepatitis A Antibody IgM Non-Reactive (Non-Reactive); Hepatitis B Core IgM Non-Reactive (Non-Reactive); Hepatitis B Surface Antigen Non-Reactive (Non-Reactive); Hepatitis C IgG Antibody Non-Reactive (Non-Reactive)
[2019-08-20 11:16] LABS: Liver/Kidney Microsome Antibod 2.9 UNITS (<=20)
[2019-08-20 12:24] LABS: Ceruloplasmin 26.4 mg/dL (20.0-60.0)
[2019-08-20 14:31] LABS: Protein, Total 6.8 g/dL (6.2-8.2)
[2019-08-21 12:40] LABS: Albumin 3.74 g/dL (3.80-4.90)
== END | disposition home or self-care (01) ==
LOC: LABWHC1 14:01
PROVIDERS: ATTEND Internal Medicine
DX: K74.69 Other cirrhosis of liver (principal)
CPT/HCPCS: 36415; 80053; 80074; 82103; 82105; 82390; 82728; 83516; 83540; 83550; 84165; 85025; 85610; 86376

== ENCOUNTER → 2019-12-24 | Outpatient (CLI) | payer MEDICARE ==
--- NOTE | 2019-12-24 08:45 | US ---
EXAMINATION TYPE: US abdomen complete DATE OF EXAM: 12/24/2019 COMPARISON: US CLINICAL HISTORY: K74.69 Other cirrhosis of liver. EXAM MEASUREMENTS: Liver Length: 13.5 cm Gallbladder Wall: 0.2 cm CBD: 0.4 cm Spleen: 12.3 cm Right Kidney: 9.6 x 3.9 x 4.2 cm Left Kidney: 9.6 x 3.7 x 4.4 cm Patient of large body habitus with significant overlying bowel gas. Pancreas: portions visualized wnl, partially obscured by bowel gas Liver: heterogeneous and slightly coarsened Gallbladder: possible stone or polyp seen with patient LLD, unable to reproduce supine Evidence for sonographic Bernal's sign: no CBD: wnl Spleen: wnl Right Kidney: 2 echogenic foci, largest measuring 0.3 x 0.2 x0.2cm Left Kidney: Inferior pole partially obscured by bowel gas, portions visualized wnl Upper IVC: wnl Abd Aorta: portions visualized measure wnl, partially obscure by overlying bowel gas The intrahepatic portion of the IVC and proximal abdominal aorta are within normal limits. Common bi le duct is unremarkable. The visualized portions of the pancreas are homogenous. The spleen is unre markable. Kidneys are symmetric and free of hydronephrosis. No renal lesions are seen. IMPRESSION: 1. Punctate nonobstructing left renal calculi. No hydronephrosis of either kidney although there is s omewhat suboptimal evaluation of the left kidney. 2. Possible gallbladder calculus versus small polyp, overall suboptimal visualization. 3. Slightly coarsened hepatic echotexture in keeping with this patient's history of hepatocellular di sease.
== END | disposition home or self-care (01) ==
LOC: RADUSWWP 07:12
PROVIDERS: ATTEND Internal Medicine
DX: N20.0 Calculus of kidney (principal); R93.2 Abnormal findings on diagnostic imaging of liver and biliary tract; Z87.19 Personal history of other diseases of the digestive system
CPT/HCPCS: 76700

== ENCOUNTER → 2020-02-10 | Outpatient (CLI) | payer MEDICARE ==
[2020-02-10 12:20] LABS: Basophils # (A) 0.1 k/uL (0-0.2); Basophils % (A) 1 %; Eosinophils # (A) 0.2 k/uL (0-0.7); Eosinophils % (A) 4 %; HCT 45.9 % (34.0-46.0); HGB 14.3 gm/dL (11.4-16.0); Lymphocytes # (A) 3.2 k/uL (1.0-4.8); Lymphocytes % (A) 48 %; MCH 29.2 pg (25.0-35.0); MCHC 31.1 g/dL (31.0-37.0); MCV 93.7 fL (80.0-100.0); Mean Platelet Volume 7.5; Monocytes # (A) 0.5 k/uL (0-1.0); Monocytes % (A) 7 %; Neutrophils # (A) 2.4 k/uL (1.3-7.7); Neutrophils % (A) 36 %; Platelet Count 187 k/uL (150-450); RBC 4.89 m/uL (3.80-5.40); WBC 6.7 k/uL (3.8-10.6)
== END | disposition home or self-care (01) ==
LOC: LABWHC1 11:24
PROVIDERS: ATTEND Internal Medicine
DX: K74.69 Other cirrhosis of liver (principal)
CPT/HCPCS: 36415; 85025

== ENCOUNTER → 2020-06-22 | Outpatient (CLI) | payer MEDICARE ==
--- NOTE | 2020-06-22 11:12 | BD ---
EXAMINATION TYPE: Axial Bone Density DATE OF EXAM: 06/22/2020 COMPARISON: 04/10/2008 CLINICAL HISTORY: 80-year-old female postmenopausal screening Height: 5 FT 1 1/2 IN Weight: 178 FRAX RISK QUESTIONS: Alcohol (3 or more units per day): NO Family History (Parent hip fracture): NO Glucocorticoids (More than 3mos): NO (Ex: prednisone, prednisolone, methylprednisolone, dexamethasone, and hydrocortisone). History of Fracture in Adulthood: YES Secondary Osteoporosis: 1. Type 1 Diabetes: NO 2. Hyperthyroidism: NO 3. Menopause before 45: NO 4. Malnutrition: NO 5. Chronic liver disease: NO Rheumatoid Arthritis: NO Current Tobacco Use: NO RISK FACTORS HISTORY OF: History of Wrist Fracture: LEFT WRIST When: AGE 74 Family History of Osteoporosis: NO Active: YES Diet low in dairy products/other sources of calcium: NO Postmenopausal woman: AGE 47-48 Take estrogen and/or progesterone medications: NONE Lost more than 2 inches in height since high school: YES Poor Health: NO MEDICATIONS: Additional Medications: ATORVASTATIN, LOSARTIN, BABY ASPIRIN ,MACROBID Additional History: EXAM MEASUREMENTS: Bone mineral densitometry was performed using the [email or web address] System. Bone mineral density as measured about the Lumbar spine is: ----- L1-L4(G/cm2): 0.895 T Score Values are as follows: ----- L2: -2.8 ----- L3: -2.6 ----- L4: -1.8 ----- L1-L4: -2.4 Bone mineral density has: INCREASED 2.7 % since study of: 2007 Bone mineral density about the R hip (g/cm2): 0.724 Bone mineral density about the L hip (g/cm2): 0.750 T Score values are as follows: -----R Neck: -2.3 -----L Neck: -2.1 -----R Total: -1.7 -----L Total: -1.9 Bone mineral density has: DECREASED -10.5 % since study of: 2007 IMPRESSION: Osteopenia (T Score between -2.5 and -1). There is slightly increased risk of fracture and the patient may be considered for treatment. Re-Screen 2-5 years. NOTE: T-SCORE=SD OF THE YOUNG ADULT MEAN.
--- NOTE | 2020-06-23 12:22 | MM ---
Reason for exam: screening (asymptomatic). Last mammogram was performed 5 years and 9 months ago. History: Patient is postmenopausal. Physical Findings: A clinical breast exam by your physician is recommended on an annual basis and results should be correlated with mammographic findings. MG 3D Screening Mammo W/Cad Bilateral CC and MLO view(s) were taken. Prior study comparison: September 25, 2014, bilateral MG screening mammo w CAD. There are scattered fibroglandular densities. There are benign appearing linear, vascular calcifications bilaterally. There is chronic nodularity bilaterally. There is no discrete abnormality. ASSESSMENT: Benign, BI-RAD 2 RECOMMENDATION: Routine screening mammogram of both breasts in 1 year.
== END | disposition home or self-care (01) ==
LOC: RADMAMWWP 07:52
PROVIDERS: ATTEND Obstetrics & Gynecology
DX: Z12.31 Encounter for screening mammogram for malignant neoplasm of breast (principal); M85.80 Other specified disorders of bone density and structure, unspecified site
CPT/HCPCS: 77063; 77067; 77080

== ENCOUNTER → 2020-07-08 | Outpatient (CLI) | payer MEDICARE ==
--- NOTE | 2020-07-08 14:47 | XR ---
EXAM TYPE: LUMBAR SPINE X RAY SERIES COMPARISON: NONE HISTORY: Pain TECHNIQUE: 4 views are submitted. FINDINGS: Alignment is anatomic. The pedicles are intact. The transverse processes are intact. There is diff use osteopenia. Facet arthropathy involving the mid and lower lumbar spine. Vascular calcifications n oted. There is a grade 1 anterolisthesis of L4 on L5. Multilevel moderate degenerative disc disease e xtending from levels L1-L5. IMPRESSION: 1. Multilevel moderate degenerative disc disease and facet arthropathy. Grade 1 anterolisthesis L4 on L5.
== END | disposition home or self-care (01) ==
LOC: RADXRMAIN 14:12
PROVIDERS: ATTEND Family Medicine
DX: M43.16 Spondylolisthesis, lumbar region (principal); M51.36 Other intervertebral disc degeneration, lumbar region; M47.816 Spondylosis without myelopathy or radiculopathy, lumbar region
CPT/HCPCS: 72110

== ENCOUNTER 2020-08-09 09:48 | Emergency (ER) | payer MEDICARE ==
[2020-08-09] MEDS ORDERED: ONDANSETRON 4 MG/2 ML VIAL IVP STA (10:12)
[2020-08-09] MEDS ORDERED: SODIUM CHLORIDE 0.9% 1,000 ML IV STA (10:12)
--- NOTE | 2020-08-09 10:17 | ED ---
General Adult HPI - General Chief complaint: Fever Stated complaint: Fever, Abd Pain Time Seen by Provider: 08/09/20 10:01 Source: patient, RN notes reviewed Mode of arrival: wheelchair Limitations: no limitations - History of Present Illness Initial comments: This a 80-year-old female presents emergency Department chief complaint of fever, abdominal pain. Patient states she's not follow-up last several days. Patient states that she developed some diarrhea, abdominal pain. She states her lower abdomen. She does have a history of pancreatitis no history of diverticulitis or colitis. Denies any prior abdominal surgeries including appendectomy or cholecystectomy. Patient states that she has decreased appetite, nausea. Patient denies any cough or URI symptoms. Patient denies any sick contacts. Patient offers no other complaints. - Related Data Home Medications Medication Instructions Recorded Confirmed Atorvastatin [Lipitor] 20 mg PO HS 02/24/14 08/09/20 Aspirin 81 mg PO HS 06/01/18 08/09/20 Nitroglycerin Sl Tabs [Nitrostat] 0.4 mg SUBLINGUAL Q5M PRN 12/05/18 08/09/20 Losartan [Cozaar] 50 mg PO HS 03/21/19 08/09/20 Calcium Carbonate [Calcium] 1,200 mg PO HS 08/09/20 08/09/20 Cholecalciferol [Vitamin D3 (25 5,000 unit PO HS 08/09/20 08/09/20 Mcg = 1000 Iu)] Nitrofurantoin Monohyd/M-Cryst 100 mg PO HS 08/09/20 08/09/20 [Macrobid] Previous Rx's Medication Instructions Recorded Levofloxacin [Levaquin] 500 mg PO DAILY #7 tab 08/09/20 Allergies Allergy/AdvReac Type Severity Reaction Status Date / Time No Known Allergies Allergy Verified 08/09/20 11:29 Review of Systems ROS Statement: Those systems with pertinent positive or pertinent negative responses have been documented in the HPI. ROS Other: All systems not noted in ROS Statement are negative. Past Medical History Past Medical History: Coronary Artery Disease (CAD), GERD/Reflux, Hyperlipidemia, Hypertension, Osteoarthritis (OA) Additional Past Medical History / Comment(s): sepsis Hx. polyp in gallbladder Hx. frequent UTI, "headaches". "palitations", occular migraines, pancreatitis History of Any Multi-Drug Resistant Organisms: None Reported Past Surgical History: Adenoidectomy, Heart Catheterization With Stent, Tonsillectomy, Tubal Ligation Additional Past Surgical History / Comment(s): Hx.benign lump removed from Left hand and tongue Past Anesthesia/Blood Transfusion Reactions: No Reported Reaction Date of Last Stent Placement:: 2012 Past Psychological History: No Psychological Hx Reported Smoking Status: Never smoker Past Alcohol Use History: None Reported Past Drug Use History: None Reported - Past Family History Mother Family Medical History: Cancer Additional Family Medical History / Comment(s): Mother at age 90 hx of uterine cancer. Father Family Medical History: Cancer Additional Family Medical History / Comment(s): Father at age 83 from prostate cancer and esophageal cancer. Brother(s) Family Medical History: Cancer Additional Family Medical History / Comment(s): Patient had a half-brother at age 68 from lung cancer. Sister(s) Family Medical History: Cancer Additional Family Medical History / Comment(s): Patient had a half sister that at age 69 from lung cancer. Daughter(s) History Unknown: Yes Family Medical History: CVA/TIA, Hypertension Additional Family Medical History / Comment(s): Patient has 4 daughters one daughter had stroke age 33. Other daughters have hypertension. Son(s) History Unknown: Yes Family Medical History: Hypertension Additional Family Medical History / Comment(s): Patient has 3 sons all with hypertension. General Exam Limitations: no limitations General appearance: alert, in no apparent distress Head exam: Present: atraumatic, normocephalic, normal inspection Eye exam: Present: normal appearance, PERRL, EOMI. Absent: scleral icterus, conjunctival injection, periorbital swelling ENT exam: Present: normal exam, normal oropharynx, mucous membranes moist Neck exam: Present: normal inspection. Absent: tenderness, meningismus, lymphadenopathy Respiratory exam: Present: normal lung sounds bilaterally. Absent: respiratory distress, wheezes, rales, rhonchi, stridor Cardiovascular Exam: Present: normal rhythm, tachycardia, normal heart sounds. Absent: systolic murmur, diastolic murmur, rubs, gallop, clicks GI/Abdominal exam: Present: soft, tenderness (Moderate lower abdominal tenderness), normal bowel sounds. Absent: distended, guarding, rebound, rigid Neurological exam: Present: alert, oriented X3, CN II-XII intact Skin exam: Present: warm, dry, intact, normal color. Absent: rash Course Vital Signs 08/09/20 08/09/20 08/09/20 09:51 10:53 12:00 Temperature 98.6 F Pulse Rate 117 H 103 H Respiratory 20 18 18 Rate Blood Pressure 121/82 123/91 O2 Sat by Pulse 96 95 Oximetry Medical Decision Making - Medical Decision Making X-ray shows possible pneumonia versus edema she states she feels greatly improved after fluids lab work is mild transaminitis no other significant belly. Patient CT does show evidence of colitis multiple other possibilities still felt related to colitis. Patient will be discharged on Levaquin will follow-up with her PCP and return for any worsening symptoms. - Lab Data Result diagrams: 08/09/20 10:26 08/09/20 10:26 Lab Results 08/09/20 08/09/20 08/09/20 Range/Units 10:26 10:26 10:26 WBC 6.6 (3.8-10.6) k/uL RBC 5.45 H (3.80-5.40) m/uL Hgb 16.7 H (11.4-16.0) gm/dL Hct 48.5 H (34.0-46.0) % MCV 88.9 (80.0-100.0) fL MCH 30.6 (25.0-35.0) pg MCHC 34.4 (31.0-37.0) g/dL RDW 13.7 (11.5-15.5) % Plt Count 215 (150-450) k/uL MPV 7.3 Neutrophils % 64 % Lymphocytes % 24 % Monocytes % 6 % Eosinophils % 3 % Basophils % 1 % Neutrophils # 4.2 (1.3-7.7) k/uL Lymphocytes # 1.6 (1.0-4.8) k/uL Monocytes # 0.4 (0-1.0) k/uL Eosinophils # 0.2 (0-0.7) k/uL Basophils # 0.1 (0-0.2) k/uL Sodium 139 (137-145) mmol/L Potassium 4.1 (3.5-5.1) mmol/L Chloride 109 H (98-107) mmol/L Carbon Dioxide 21 L (22-30) mmol/L Anion Gap 9 mmol/L BUN 15 (7-17) mg/dL Creatinine 0.69 (0.52-1.04) mg/dL Est GFR (CKD-EPI)AfAm >90 (>60 ml/min/1.73 sqM) Est GFR (CKD-EPI)NonAf 84 (>60 ml/min/1.73 sqM) Glucose 108 H (74-99) mg/dL Plasma Lactic Acid Jey (0.7-2.0) mmol/L Calcium 9.1 (8.4-10.2) mg/dL Total Bilirubin 1.0 (0.2-1.3) mg/dL AST 46 H (14-36) U/L ALT 53 H (4-34) U/L Alkaline Phosphatase 157 H (38-126) U/L Total Protein 6.9 (6.3-8.2) g/dL Albumin 3.4 L (3.5-5.0) g/dL Amylase 86 (30-110) U/L Lipase 143 (23-300) U/L Urine Color Urine Appearance (Clear) Urine pH (5.0-8.0) Ur Specific Buckhorn (1.001-1.035) Urine Protein (Negative) Urine Glucose (UA) (Negative) Urine Ketones (Negative) Urine Blood (Negative) Urine Nitrite (Negative) Urine Bilirubin (Negative) Urine Urobilinogen (<2.0) mg/dL Ur Leukocyte Esterase (Negative) Urine RBC (0-5) /hpf Urine WBC (0-5) /hpf Ur Squamous Epith Cells (0-4) /hpf Hyaline Casts (0-2) /lpf Urine Mucus (None) /hpf Coronavirus (PCR) Not Detected (Not Detectd) 08/09/20 08/09/20 Range/Units 10:30 10:53 WBC (3.8-10.6) k/uL RBC (3.80-5.40) m/uL Hgb (11.4-16.0) gm/dL Hct (34.0-46.0) % MCV (80.0-100.0) fL MCH (25.0-35.0) pg MCHC (31.0-37.0) g/dL RDW (11.5-15.5) % Plt Count (150-450) k/uL MPV Neutrophils % % Lymphocytes % % Monocytes % % Eosinophils % % Basophils % % Neutrophils # (1.3-7.7) k/uL Lymphocytes # (1.0-4.8) k/uL Monocytes # (0-1.0) k/uL Eosinophils # (0-0.7) k/uL Basophils # (0-0.2) k/uL Sodium (137-145) mmol/L Potassium (3.5-5.1) mmol/L Chloride (98-107) mmol/L Carbon Dioxide (22-30) mmol/L Anion Gap mmol/L BUN (7-17) mg/dL Creatinine (0.52-1.04) mg/dL Est GFR (CKD-EPI)AfAm (>60 ml/min/1.73 sqM) Est GFR (CKD-EPI)NonAf (>60 ml/min/1.73 sqM) Glucose (74-99) mg/dL Plasma Lactic Acid Jey 1.3 (0.7-2.0) mmol/L Calcium (8.4-10.2) mg/dL Total Bilirubin (0.2-1.3) mg/dL AST (14-36) U/L ALT (4-34) U/L Alkaline Phosphatase (38-126) U/L Total Protein (6.3-8.2) g/dL Albumin (3.5-5.0) g/dL Amylase (30-110) U/L Lipase (23-300) U/L Urine Color Yellow Urine Appearance Clear (Clear) Urine pH 6.0 (5.0-8.0) Ur Specific [place] 1.018 (1.001-1.035) Urine Protein Negative (Negative) Urine Glucose (UA) Negative (Negative) Urine Ketones Negative (Negative) Urine Blood Trace H (Negative) Urine Nitrite Negative (Negative) Urine Bilirubin Negative (Negative) Urine Urobilinogen <2.0 (<2.0) mg/dL Ur Leukocyte Esterase Moderate H (Negative) Urine RBC 4 (0-5) /hpf Urine WBC 17 H (0-5) /hpf Ur Squamous Epith Cells 1 (0-4) /hpf Hyaline Casts 4 H (0-2) /lpf Urine Mucus Rare H (None) /hpf Coronavirus (PCR) (Not Detectd) Disposition Clinical Impression: Colitis, Pneumonia Disposition: HOME SELF-CARE Condition: Stable Instructions (If sedation given, give patient instructions): Colitis (ED) Additional Instructions: Please return to the Emergency Department if symptoms worsen or any other concerns. Prescriptions: Levofloxacin [Levaquin] 500 mg PO DAILY #7 tab Is patient prescribed a controlled substance at d/c from ED?: No Referrals: Charly Pang DO [Primary Care Provider] - 1-2 days Time of Disposition: 13:17
[2020-08-09 10:40] LABS: Basophils # (A) 0.1 k/uL (0-0.2); Basophils % (A) 1 %; Eosinophils # (A) 0.2 k/uL (0-0.7); Eosinophils % (A) 3 %; HCT 48.5 % (34.0-46.0); HGB 16.7 gm/dL (11.4-16.0); Lymphocytes # (A) 1.6 k/uL (1.0-4.8); Lymphocytes % (A) 24 %; MCH 30.6 pg (25.0-35.0); MCHC 34.4 g/dL (31.0-37.0); MCV 88.9 fL (80.0-100.0); Mean Platelet Volume 7.3; Monocytes # (A) 0.4 k/uL (0-1.0); Monocytes % (A) 6 %; Neutrophils # (A) 4.2 k/uL (1.3-7.7); Neutrophils % (A) 64 %; Platelet Count 215 k/uL (150-450); RBC 5.45 m/uL (3.80-5.40); RDW 13.7 % (11.5-15.5); WBC 6.6 k/uL (3.8-10.6)
[2020-08-09 10:53] LABS: ALT 53 U/L (4-34); AST 46 U/L (14-36); African American GFR (CKD) >90 (>60 ml/min/1.73 sqM); Albumin 3.4 g/dL (3.5-5.0); Alkaline Phosphatase 157 U/L (38-126); Amylase 86 U/L (30-110); Anion Gap 9 mmol/L; Blood Urea Nitrogen 15 mg/dL (7-17); Calcium 9.1 mg/dL (8.4-10.2); Carbon Dioxide 21 mmol/L (22-30); Chloride 109 mmol/L (98-107); Glucose 108 mg/dL (74-99); Lipase 143 U/L (23-300); Non-African American GFR(CKD) 84 (>60 ml/min/1.73 sqM); Potassium 4.1 mmol/L (3.5-5.1); Sodium 139 mmol/L (137-145); Total Protein 6.9 g/dL (6.3-8.2)
[2020-08-09 10:54] VITALS: RESP 18
[2020-08-09 11:08] LABS: Appearance,Urine Clear (Clear); Bilirubin,Urine Negative (Negative); Blood,Urine Trace (Negative); Color,Urine Yellow; Glucose,Urine (UA) Negative (Negative); Hyaline Casts,Urine 4 /lpf (0-2); Ketones,Urine Negative (Negative); Leukocyte Esterase,Urine Moderate (Negative); Mucus,Urine Rare /hpf; Nitrite,Urine Negative (Negative); Protein,Urine Negative (Negative); RBC,Urine 4 /hpf (0-5); Specific Gravity,Urine 1.018 (1.001-1.035); Squamous Epithelial Cell,Urine 1 /hpf (0-4); Urobilinogen,Urine <2.0 mg/dL (<2.0); WBC,Urine 17 /hpf (0-5)
--- NOTE | 2020-08-09 12:19 | CT ---
EXAMINATION TYPE: CT abdomen pelvis w con DATE OF EXAM: 08/09/2020 COMPARISON: CT dated 03/08/2019 HISTORY: Abdominal pain, fever, chills CT DLP: 898 mGycm Automated exposure control for dose reduction was used. TECHNIQUE: Helical acquisition of images from the lung bases through the pelvis have been completed. CONTRAST: Performed without Oral Contrast and with IV Contrast, patient injected with 100 mL of Isovue 300. FINDINGS: LUNG BASES: There is some mild groundglass opacity at the lung bases, no pleural or pericardial effus ion, some pneumatoceles are also present bilaterally. There is small hiatal hernia with partial intra thoracic stomach present.. AORTA: No significant abnormality is appreciated. LIVER/GB: The liver shows a nodular contour, there is no evident mass. Gallbladder is normal. PANCREAS: No significant abnormality is seen. SPLEEN: No significant abnormality is seen. ADRENALS: No significant abnormality is seen. KIDNEYS: Nonobstructive 4 mm calculus is present at the upper pole the left kidney, exophytic cyst pr esent at the midpole measures 18 mm. Smaller cyst present at the lower pole and upper pole There is n o hydronephrosis bilaterally, no ureteral calculus. REPRODUCTIVE ORGANS: Atrophic consistent with patient's age BOWEL: Diverticular changes especially in the sigmoid colon, questionable colonic wall thickening, t he appendix is normal. FREE AIR: No Free Air visible. ASCITES: None visible. PELVIC ADENOPATHY: None visualized. RETROPERITONEAL ADENOPATHY: No Retroperitoneal Adenopathy visible. URINARY BLADDER: No significant abnormality is seen. OSSEOUS STRUCTURES: Degenerative disc disease and facet arthropathy and lumbar spine is seen. IMPRESSION: CORRELATE FOR CIRRHOSIS. POSSIBLE INTERSTITIAL EDEMA AT THE LUNG BASES, CORRELATE TO EXCLUDE PNEUMONI A. DIFFICULT TO EXCLUDE COLITIS.
[2020-08-09] MEDS ORDERED: SODIUM CHLORIDE 0.9% 1,000 ML IV ONE (12:41)
--- NOTE | 2020-08-09 12:56 | XR ---
EXAMINATION TYPE: XR chest 2V DATE OF EXAM: 08/09/2020 COMPARISON: Chest x-ray 06/01/2018 HISTORY: Fever TECHNIQUE: Frontal and lateral views of the chest are obtained. FINDINGS: Patchy increased density present within the lungs. No evident pneumothorax or pleural effu radha. Cardiac mediastinal silhouette is within normal limits. Aorta is dense. IMPRESSION: Correlate for possible interstitial edema, pneumonia
[2020-08-09] MEDS ORDERED: ONDANSETRON 4 MG ODT STARTER PACK 2 TAB BTL PO STA (13:19)
[2020-08-09 14:31] VITALS: BP 119/75; PULSE 95; TEMP 100.3
== END 2020-08-09 13:43 | disposition home or self-care (01) ==
LOC: EC 09:48
DX: K52.9 Noninfective gastroenteritis and colitis, unspecified (principal); J18.9 Pneumonia, unspecified organism; I25.10 Atherosclerotic heart disease of native coronary artery without angina pectoris; I10 Essential (primary) hypertension; E78.5 Hyperlipidemia, unspecified; Z79.82 Long term (current) use of aspirin; Z79.899 Other long term (current) drug therapy; Z95.5 Presence of coronary angioplasty implant and graft; Z87.19 Personal history of other diseases of the digestive system
CPT/HCPCS: 36415; 80053; 82150; 83605; 83690; 85025; 81001; 87086; 87635; 71046; 74177; 99284; 96374; 96361 ×2; J2405; S0119; Q9967

== ENCOUNTER → 2020-08-13 | Outpatient (CLI) | payer MEDICARE ==
--- NOTE | 2020-08-13 11:01 | MR ---
EXAMINATION TYPE: MR lumbar spine wo con DATE OF EXAM: 08/13/2020 COMPARISON: NONE HISTORY: Low back pain for 3 months. TECHNIQUE: T1 and T2 axial and sagittal images of the lumbar spine are submitted. FINDINGS: There is no abnormal signal seen within the visualized spinal cord or paraspinal soft tissu es. There is loss of disc signal at all levels with multilevel mild degenerative disc disease. There is a vacuum disc at L1-L2 suggestive of severe degenerative disc disease. Chronic appearing compressi on deformity of the inferior endplate of L1. Simple appearing left renal cyst noted. At T12-L1 there is a mild left paracentral disc bulge. No canal stenosis or foraminal encroachment. At L1-2 there is degenerative disc disease with the abnormal marrow along the lower margin of the L1 inferior endplate compatible with mild compression fracture which appears chronic. No canal stenosis or neural foraminal encroachment. At L2-3 there is facet arthropathy and circumferential disc bulging L2-3. Neural foramina remain chisholm nt. At L3-4 there is degenerative disc disease with hypertrophic change of the facets and ligamentum flav um. Mild circumferential disc bulging with mild bilateral foraminal encroachment. Borderline to mild canal stenosis. At L4-5 there is advanced facet arthropathy with ligamentum flavum hypertrophy and diffuse disc bulgi ng result in mild canal stenosis and no significant bilateral foraminal encroachment minimal 1 to 2 m m anterolisthesis L4 on L5 appears degenerative. At L5-S1 there is advanced facet arthropathy with no disc herniation or canal stenosis. No foraminal encroachment. IMPRESSION: 1. Multiple level degenerative disc disease and facet arthropathy as discussed above. Abnormal marrow involving the L1 vertebral segment is most suggestive of mild chronic endplate compression fracture. Grade 1 anterolisthesis L4 on L5 appears degenerative. 2. Disc bulging L3-4 and L4-5 with borderline to mild central stenosis. 3. Left paracentral disc bulge or tiny protrusion T12-L1.
== END | disposition home or self-care (01) ==
LOC: RADMRIMAIN 08:46
PROVIDERS: ATTEND Family Medicine
DX: M48.061 Spinal stenosis, lumbar region without neurogenic claudication (principal); M51.36 Other intervertebral disc degeneration, lumbar region; M47.816 Spondylosis without myelopathy or radiculopathy, lumbar region; M43.16 Spondylolisthesis, lumbar region; M51.26 Other intervertebral disc displacement, lumbar region
CPT/HCPCS: 72148

== ENCOUNTER → 2020-08-17 | Outpatient (CLI) | payer MEDICARE ==
[2020-08-17 10:11] LABS: Basophils # (A) 0.1 k/uL (0-0.2); Basophils % (A) 1 %; Eosinophils # (A) 0.1 k/uL (0-0.7); Eosinophils % (A) 2 %; HCT 48.1 % (34.0-46.0); HGB 16.1 gm/dL (11.4-16.0); Lymphocytes # (A) 1.6 k/uL (1.0-4.8); Lymphocytes % (A) 22 %; MCH 30.3 pg (25.0-35.0); MCHC 33.5 g/dL (31.0-37.0); MCV 90.5 fL (80.0-100.0); Monocytes # (A) 0.5 k/uL (0-1.0); Monocytes % (A) 7 %; Neutrophils # (A) 4.7 k/uL (1.3-7.7); Neutrophils % (A) 66 %; Platelet Count 271 k/uL (150-450); RBC 5.32 m/uL (3.80-5.40); RDW 14.2 % (11.5-15.5); WBC 7.2 k/uL (3.8-10.6)
[2020-08-17 10:20] LABS: INR 1.1 (<1.2); Prothrombin Time 11.3 sec (9.0-12.0)
[2020-08-17 10:23] LABS: Albumin 3.2 g/dL (3.5-5.0); Calcium 9.2 mg/dL (8.4-10.2); Potassium 4.4 mmol/L (3.5-5.1); Total Bilirubin 0.9 mg/dL (0.2-1.3); Total Protein 6.5 g/dL (6.3-8.2)
--- NOTE | 2020-08-17 11:59 | US ---
EXAMINATION TYPE: US abdomen complete DATE OF EXAM: 08/17/2020 COMPARISON: 08/09/2020 CLINICAL HISTORY: 80-year-old female K74.69 Other cirrhosis. TECHNIQUE: Multiple sonographic images of the abdomen are obtained. FINDINGS: EXAM MEASUREMENTS: Liver Length: 12.5 cm Gallbladder Wall: There is some fundal wall thickening measuring up to 8 mm. CBD: 0.5 cm Spleen: 14.8 cm Right Kidney: 9.1 x 4.4 x 4.6 cm Left Kidney: 9.6 x 4.7 x 3.8 cm Grad[employer] notes: Technically difficult study, patient of large body habitus and unable to hold her breath without severe coughing. Pancreas: Portions of the pancreatic head and tail are obscured by bowel gas. Visualized portions sh ow no gross abnormality. Liver: limited visualization shows no obvious mass Gallbladder: Some fundal wall thickening. Remaining wall is normal at 1 mm. Evidence for sonographic Bernal's sign: no CBD: wnl Spleen: measures large Right Kidney: Inferior pole obscured by bowel gas. No hydronephrosis. Left Kidney: cysts seen, the largest is exophytic measuring 2.1 x 2.2 x 2.2cm, very limited views Upper IVC: wnl Abd Aorta: bifurcation obscured by overlying bowel gas IMPRESSION: 1. Technically difficult and limited exam due to patient's inability to breath-hold and large body zamudio bitus. Limited views of the liver. Visualized portions show no focal lesion. 2. Splenomegaly of 14.8 cm may reflect portal venous hypertension. 3. Some fundal gallbladder wall thickening up to 8 mm may be secondary to the underlying cirrhosis. N o gallstones or ancillary findings of acute/chronic cholecystitis. The wall thickening is not apparen t on the recent CT. Three-month follow-up ultrasound recommended to reassess this area.
== END | disposition home or self-care (01) ==
LOC: RADUSWWP 09:00
PROVIDERS: ATTEND Internal Medicine
DX: K74.69 Other cirrhosis of liver (principal); R16.1 Splenomegaly, not elsewhere classified; E78.5 Hyperlipidemia, unspecified; D47.1 Chronic myeloproliferative disease
CPT/HCPCS: 76700; 80053; 80061; 82105; 84443; 85025; 85610

== ENCOUNTER → 2020-09-03 | Outpatient (CLI) | payer MEDICARE ==
--- NOTE | 2020-09-03 09:08 | XR ---
EXAMINATION TYPE: XR chest 2V DATE OF EXAM: 09/03/2020 COMPARISON: Chest x-ray 08/09/2020 HISTORY: Hypertension and palpitations TECHNIQUE: Frontal and lateral views of the chest are obtained. FINDINGS: There is no focal air space opacity, pleural effusion, or pneumothorax seen. There are pro minent lung volume suggesting underlying COPD. Aorta is dense. The cardiac silhouette size is within normal limits. The osseous structures are intact. IMPRESSION: No acute cardiopulmonary process. Aeration is improved.
== END | disposition home or self-care (01) ==
LOC: RADXRMAIN 08:38
PROVIDERS: ATTEND Family Medicine
DX: R91.8 Other nonspecific abnormal finding of lung field (principal); I10 Essential (primary) hypertension
CPT/HCPCS: 71046

== ENCOUNTER → 2020-12-22 | Outpatient (CLI) | payer MEDICARE ==
[2020-12-22 10:06] LABS: Basophils # (A) 0.1 k/uL (0-0.2); Basophils % (A) 1 %; Eosinophils # (A) 0.2 k/uL (0-0.7); Eosinophils % (A) 3 %; HCT 45.2 % (34.0-46.0); HGB 15.1 gm/dL (11.4-16.0); Lymphocytes # (A) 2.5 k/uL (1.0-4.8); Lymphocytes % (A) 46 %; MCH 30.3 pg (25.0-35.0); MCHC 33.5 g/dL (31.0-37.0); MCV 90.5 fL (80.0-100.0); Mean Platelet Volume 7.7; Monocytes # (A) 0.5 k/uL (0-1.0); Monocytes % (A) 10 %; Neutrophils % (A) 37 %; Platelet Count 174 k/uL (150-450); WBC 5.4 k/uL (3.8-10.6)
[2020-12-22 10:14] LABS: INR 1.1 (<1.2); Prothrombin Time 11.4 sec (9.0-12.0)
[2020-12-22 10:24] LABS: Albumin 3.6 g/dL (3.5-5.0); Calcium 9.2 mg/dL (8.4-10.2); Potassium 4.4 mmol/L (3.5-5.1); Total Bilirubin 0.8 mg/dL (0.2-1.3); Total Protein 6.7 g/dL (6.3-8.2)
--- NOTE | 2020-12-22 12:23 | US ---
EXAMINATION TYPE: US abdomen complete DATE OF EXAM: 12/22/2020 COMPARISON: 08/17/2020 CLINICAL HISTORY: K74.69 Cirrhosis of the liver. EXAM MEASUREMENTS: Liver Length: 13.2 cm Gallbladder Wall: 0.2 cm CBD: 0.5 cm Spleen: 10.6 cm Right Kidney: 10.1 x 3.6 x 4.0 cm Left Kidney: 10.4 x 4.2 x 3.7 cm Pancreas: head obscured by overlying bowel gas Liver: heterogeneous liver parenchyma Gallbladder: No gallstones, sludge, or pericholecystic fluid. Evidence for sonographic Bernal's sign: no CBD: wnl Spleen: wnl Right Kidney: Heterogeneous cystic structure measuring 1.1 x 1.2 x 1.3cm may represent a hemorrhagic or proteinaceous cyst. Renal cell carcinoma cannot be excluded. This would be better evaluated with a CT or ultrasound using renal protocol with IV contrast. Left Kidney: Inferior pole obscured by bowel gas, portions visualized wnl Upper IVC: wnl Abd Aorta: wnl IMPRESSION: 1. Technically difficult study due to patient's large body habitus and overlying bowel gas. The head of the pancreas is obscured by overlying bowel gas. 2. Heterogeneous liver parenchyma. This corresponds with the patient's history of cirrhosis. 3. The inferior pole of the left kidney is not visualized due to overlying bowel gas. 4. 1.2 cm cystic structure in the right kidney. This may represent a hemorrhagic or proteinaceous cy st but underlying renal cell carcinoma cannot be excluded. This would be better evaluated with CT or ultrasound using renal protocol with IV contrast. 5. No gallstones.
== END | disposition home or self-care (01) ==
LOC: RADUSWWP 09:01
PROVIDERS: ATTEND Internal Medicine
DX: K74.60 Unspecified cirrhosis of liver (principal); N28.1 Cyst of kidney, acquired
CPT/HCPCS: 36415; 76700; 80053; 82105; 85025; 85610

== ENCOUNTER → 2021-01-19 | Outpatient (CLI) | payer MEDICARE ==
--- NOTE | 2021-01-19 14:58 | XR ---
EXAMINATION TYPE: XR foot complete LT DATE OF EXAM: 01/19/2021 COMPARISON: NONE HISTORY: Pain TECHNIQUE: Three views are submitted. FINDINGS: The osseous structures are intact. There is no acute fracture or dislocation. Severe hypertrophic arthropathy first MTP. There is diffuse osteopenia and narrowing of all DIP joints. Calcaneal spurs n oted.. IMPRESSION: 1. No acute fracture or dislocation. If symptoms persist, follow-up exam in 7 to 10 days could be ob tained.
== END | disposition home or self-care (01) ==
LOC: RADXRMAIN 13:41
PROVIDERS: ATTEND Family Medicine
DX: M89.372 Hypertrophy of bone, left ankle and foot (principal); M85.872 Other specified disorders of bone density and structure, left ankle and foot; M77.32 Calcaneal spur, left foot

== ENCOUNTER → 2021-01-21 | Outpatient (CLI) | payer MEDICARE ==
[2021-01-21 12:32] LABS: African American GFR (CKD) >90 (>60 ml/min/1.73 sqM); Blood Urea Nitrogen 15 mg/dL (7-17); Non-African American GFR(CKD) 84 (>60 ml/min/1.73 sqM)
--- NOTE | 2021-01-21 18:48 | CT ---
EXAMINATION TYPE: CT abdomen wo/w con DATE OF EXAM: 01/21/2021 COMPARISON: 08/09/2020, 03/08/2019. Ultrasound 12/22/2020. HISTORY: 81-year-old female N28.1, Right kidney cyst. TECHNIQUE: Contiguous axial scanning of the abdomen before and after administration of 100 ml Isovue 300 IV contrast. Delayed images through the kidneys and coronal/sagittal reconstructions performed. CT DLP: 1019.8 mGycm Automated exposure control for dose reduction was used. FINDINGS: Heart upper limits of normal in size with trace anterior basilar pericardial fluid measuring up to 8 mm thick. Mild emphysematous change in the visualized lower lungs. No pleural effusion. Small hiatal hernia. No focal liver lesion or biliary ductal dilatation. Portal venous system is patent. Gallbladder, adrenal glands, spleen with hilar splenule, and pancreas appear within normal limits. Scattered mild to moderate atherosclerotic calcifications abdominal aorta without aneurysm. No dilated small bowel, free fluid, or free air. No mesenteric or retroperitoneal lymphadenopathy. 4 mm nonobstructive left renal calculus. 7 mm anterior left upper pole cortical cyst, decreased in size from 2019 weren't measured 1.8 cm. 1.8 cm posterior left renal mid pole cyst is unchanged as are a few subcentimeter cortical hypodensit ies suggesting additional small cysts. Extra renal pelvis right kidney. Tiny 5 mm hypodensity anterior upper pole right kidney too small for accurate CT characterization but unchanged from 2019 suggesting a benign cyst. Symmetric uptake and excretion of contrast from both kidneys. Mild to moderate stool burden. Oral contrast progressed to the splenic flexure of the colon. Mild div erticular change seen in the lower descending colon. Normal appendix. Pelvis not imaged. Bones: Facet arthropathy lower lumbar spine. Inferior endplate deformity L1 is unchanged from 08/09/19 21 but new from 2019. IMPRESSION: 1. CT CONFIRMS BILATERAL RENAL CYSTS, LARGEST MEASURING 1.8 CM. MANY OF THE LESIONS ARE TOO SMALL FOR ACCURATE CT CHARACTERIZATION BUT WERE PRESENT BACK TO 2019 COMPATIBLE WITH BENIGN CYSTS. NO SUSPICIO US SOLID MASS. 2. 4 MM NONOBSTRUCTIVE LEFT RENAL CALCULUS. 3. SMALL HIATAL HERNIA.
== END | disposition home or self-care (01) ==
LOC: RADCTMAIN 11:37
PROVIDERS: ATTEND Family Medicine
DX: N28.1 Cyst of kidney, acquired (principal); N20.0 Calculus of kidney; K44.9 Diaphragmatic hernia without obstruction or gangrene
CPT/HCPCS: 82565; 84520; 74170; 36415; Q9967 ×2

== ENCOUNTER → 2021-02-18 | Outpatient (CLI) | payer MEDICARE ==
--- NOTE | 2021-02-18 14:55 | XR ---
EXAMINATION TYPE: XR KUB DATE OF EXAM: 02/18/2021 COMPARISON: 01/21/2021 HISTORY: Pain TECHNIQUE: One view abdominal series FINDINGS: The osseous structures are intact. The bowel gas pattern is nonspecific. Hypertrophic and degenerati ve changes spine. Vascular calcifications noted. Arthropathy of the hips. Bowel content limits assess ment. No definite renal calcification identified. IMPRESSION: 1. No definite renal calcification as visualized.
== END | disposition home or self-care (01) ==
LOC: RADXRMAIN 14:31
PROVIDERS: ATTEND Urology
DX: R10.9 Unspecified abdominal pain (principal)
CPT/HCPCS: 74018

== ENCOUNTER 2021-03-05 10:09 | Emergency (ER) | payer MEDICARE ==
[2021-03-05 10:24] VITALS: RESP 18
--- NOTE | 2021-03-05 11:16 | ED ---
Fall HPI - General Chief Complaint: Fall Stated Complaint: Fall, Head injury Time Seen by Provider: 03/05/21 10:27 Source: patient, RN notes reviewed Mode of arrival: wheelchair Limitations: no limitations - History of Present Illness Initial Comments: 81-year-old female presents emergency Department chief complaint of fall, head injury. Patient states she tripped and fell yesterday did strike her head shanthi 2x 10 board. Patient states she has headache, head pressure today. Patient denies lose consciousness states that she is sore on her legs but it has no difficulty ambulating. Patient does take a baby aspirin no other blood thinners noted. Local weakness - Related Data Home Medications Medication Instructions Recorded Confirmed Atorvastatin [Lipitor] 20 mg PO HS 02/24/14 08/09/20 Aspirin 81 mg PO HS 06/01/18 08/09/20 Nitroglycerin Sl Tabs [Nitrostat] 0.4 mg SUBLINGUAL Q5M PRN 12/05/18 08/09/20 Losartan [Cozaar] 50 mg PO HS 03/21/19 08/09/20 Calcium Carbonate [Calcium] 1,200 mg PO HS 08/09/20 08/09/20 Cholecalciferol [Vitamin D3 (25 5,000 unit PO HS 08/09/20 08/09/20 Mcg = 1000 Iu)] Nitrofurantoin Monohyd/M-Cryst 100 mg PO HS 08/09/20 08/09/20 [Macrobid] Previous Rx's Medication Instructions Recorded Levofloxacin [Levaquin] 500 mg PO DAILY #7 tab 08/09/20 Allergies Allergy/AdvReac Type Severity Reaction Status Date / Time No Known Allergies Allergy Verified 03/05/21 12:03 Review of Systems ROS Statement: Those systems with pertinent positive or pertinent negative responses have been documented in the HPI. ROS Other: All systems not noted in ROS Statement are negative. Past Medical History Past Medical History: Coronary Artery Disease (CAD), GERD/Reflux, Hyperlipidemia, Hypertension, Osteoarthritis (OA) Additional Past Medical History / Comment(s): sepsis Hx. polyp in gallbladder Hx. frequent UTI, "headaches". "palitations", occular migraines, pancreatitis History of Any Multi-Drug Resistant Organisms: None Reported Past Surgical History: Adenoidectomy, Heart Catheterization With Stent, Tonsillectomy, Tubal Ligation Additional Past Surgical History / Comment(s): Hx.benign lump removed from Left hand and tongue Past Anesthesia/Blood Transfusion Reactions: No Reported Reaction Date of Last Stent Placement:: 2012 Past Psychological History: No Psychological Hx Reported Smoking Status: Never smoker Past Alcohol Use History: None Reported Past Drug Use History: None Reported - Past Family History Mother Family Medical History: Cancer Additional Family Medical History / Comment(s): Mother at age 90 hx of uterine cancer. Father Family Medical History: Cancer Additional Family Medical History / Comment(s): Father at age 83 from prostate cancer and esophageal cancer. Brother(s) Family Medical History: Cancer Additional Family Medical History / Comment(s): Patient had a half-brother at age 68 from lung cancer. Sister(s) Family Medical History: Cancer Additional Family Medical History / Comment(s): Patient had a half sister that at age 69 from lung cancer. Daughter(s) History Unknown: Yes Family Medical History: CVA/TIA, Hypertension Additional Family Medical History / Comment(s): Patient has 4 daughters one daughter had stroke age 33. Other daughters have hypertension. Son(s) History Unknown: Yes Family Medical History: Hypertension Additional Family Medical History / Comment(s): Patient has 3 sons all with hypertension. General Exam Limitations: no limitations General appearance: alert, in no apparent distress Head exam: Present: atraumatic, normocephalic, normal inspection Eye exam: Present: normal appearance, PERRL, EOMI. Absent: scleral icterus, conjunctival injection, periorbital swelling ENT exam: Present: normal exam, normal oropharynx, mucous membranes moist Neck exam: Present: normal inspection, full ROM. Absent: tenderness, meningismus, lymphadenopathy Respiratory exam: Present: normal lung sounds bilaterally. Absent: respiratory distress, wheezes, rales, rhonchi, stridor Cardiovascular Exam: Present: regular rate, normal rhythm, normal heart sounds. Absent: systolic murmur, diastolic murmur, rubs, gallop, clicks GI/Abdominal exam: Present: soft, normal bowel sounds. Absent: distended, tenderness, guarding, rebound, rigid Neurological exam: Present: alert, oriented X3, CN II-XII intact, reflexes normal. Absent: motor sensory deficit Skin exam: Present: warm, dry, intact, normal color. Absent: rash Course Vital Signs 03/05/21 10:21 Temperature 98.4 F Pulse Rate 97 Respiratory 18 Rate Blood Pressure 137/83 O2 Sat by Pulse 98 Oximetry Medical Decision Making - Medical Decision Making CT is negative for acute intracranial hemorrhage or mass effect. Patient's possibly intact no C-spine injury. Patient discharged in stable condition. Disposition Clinical Impression: Fall, Head contusion Disposition: HOME SELF-CARE Condition: Stable Instructions (If sedation given, give patient instructions): Head Injury (ED) Additional Instructions: Please return to the Emergency Department if symptoms worsen or any other concerns. Is patient prescribed a controlled substance at d/c from ED?: No Referrals: Charly Pang DO [Primary Care Provider] - 1-2 days Time of Disposition: 12:04
--- NOTE | 2021-03-05 11:35 | CT ---
EXAMINATION TYPE: CT brain genia zhang con DATE OF EXAM: 03/05/2021 COMPARISON: 04/16/2018 HISTORY: pain/fall CT DLP: 1247.4 mGycm Automated exposure control for dose reduction was used. TECHNIQUE: CT scan of the head and cervical spine are performed without contrast. FINDINGS: The ventricles, basal cisterns and sulci overlying the cerebral convexities demonstrate m ild enlargement. There is no evidence for intracranial hemorrhage or sulcal effacement. There is decr eased attenuation about the periventricular white matter and deep white matter of both cerebral hemis pheres, compatible with chronic small vessel ischemia. Differential diagnosis does include demyelinat ion. No mass effects are seen. No midline shift. Osseous calvarium is intact. If symptoms persist con plate developer MRI. Changes of chronic sinusitis noted. Hyperostosis of the calvarium noted. Punctate hyperden sities seen in the right parietal region appears to represent tiny calcification. Assessment spinal canal is a markedly limited due to resolution and artifact. There is a multilevel d egenerative disc disease most marked at levels C4-5, C5-6 and C6-C7 with posterior spondylosis. Suspe ct foraminal encroachment. Could not exclude canal stenosis. Multilevel foraminal encroachment. Odontoid intact. Prevertebral soft tissue structures within normal limits. Emphysematous changes seen involving the lung apices large bulla in the right upper lobe. IMPRESSION: 1. There is no acute fracture or dislocation evident in the cervical spine. 2. No acute intracranial hemorrhage, mass effect, or midline shift is seen. Degenerative and nonspeci fic white matter changes most typical remote microvascular ischemia.
[2021-03-05 12:48] VITALS: BP 117/78; PULSE 90; TEMP 98.1
== END 2021-03-05 12:47 | disposition home or self-care (01) ==
LOC: EC 10:09
DX: S00.93XA Contusion of unspecified part of head, initial encounter (principal); I10 Essential (primary) hypertension; E78.5 Hyperlipidemia, unspecified; I25.10 Atherosclerotic heart disease of native coronary artery without angina pectoris; K21.9 Gastro-esophageal reflux disease without esophagitis; M19.90 Unspecified osteoarthritis, unspecified site; Z79.82 Long term (current) use of aspirin; Z79.899 Other long term (current) drug therapy; Z80.1 Family history of malignant neoplasm of trachea, bronchus and lung; Z82.49 Family history of ischemic heart disease and other diseases of the circulatory system; W01.198A Fall on same level from slipping, tripping and stumbling with subsequent striking against other object, initial encounter
CPT/HCPCS: 70450; 72125; 99284

== ENCOUNTER → 2021-08-18 | Outpatient (CLI) | payer MEDICARE ==
[2021-08-18 22:35] LABS: Basophils # (A) 0.05 X 10*3/uL (0.00-0.10); Basophils % (A) 0.7 %; Eosinophils # (A) 0.11 X 10*3/uL (0.04-0.35); Eosinophils % (A) 1.6 %; HCT 46.1 % (37.2-46.3); HGB 14.5 g/dL (12.0-15.0); Lymphocytes # (A) 2.84 X 10*3/uL (0.90-5.00); Lymphocytes % (A) 42.2 %; MCH 29.4 pg (27.0-32.0); MCHC 31.5 g/dL (32.0-37.0); MCV 93.3 fL (80.0-97.0); Mean Platelet Volume 10.7 fL (9.5-12.2); Monocytes # (A) 0.78 X 10*3/uL (0.20-1.00); Monocytes % (A) 11.6 %; Neutrophils # (A) 2.92 X 10*3/uL (1.80-7.70); Neutrophils % (A) 43.5 %; Platelet Count 189 X 10*3/uL (140-440); RBC 4.94 X 10*6/uL (4.10-5.20); RDW 13.7 % (11.5-14.5); WBC 6.73 X 10*3/uL (4.50-10.00)
[2021-08-18 23:04] LABS: African American GFR (CKD) 85.9 (60.0-200.0); Albumin 3.6 g/dL (3.8-4.9); Albumin/Globulin Ratio 1.03 (1.60-3.17); Anion Gap 10.2 mmol/L (10.00-18.00); BUN/Creat Ratio 15.71 Ratio (12.00-20.00); Calcium 9.1 mg/dL (8.7-10.3); Carbon Dioxide 25.6 mmol/L (20.0-27.5); Globulin 3.5 g/dL (1.6-3.3); Non-African American GFR(CKD) 74.1 (60.0-200.0); Potassium 4.2 mmol/L (3.5-5.5); Total Bilirubin 0.7 mg/dL (0.30-1.20)
== END | disposition home or self-care (01) ==
LOC: LABWHC1 14:16
PROVIDERS: ATTEND Internal Medicine Gastroenterology
DX: K74.69 Other cirrhosis of liver (principal)
CPT/HCPCS: 36415; 80053; 82105; 85025

== ENCOUNTER 2021-10-05 11:29 | Observation (INO) | payer MEDICARE ==
[2021-10-05 12:18] LABS: Basophils # (A) 0.1 k/uL (0-0.2); Basophils % (A) 1 %; Eosinophils % (A) 1 %; HCT 48.1 % (34.0-46.0); HGB 15.8 gm/dL (11.4-16.0); Lymphocytes # (A) 1.5 k/uL (1.0-4.8); Lymphocytes % (A) 26 %; MCH 30.6 pg (25.0-35.0); MCHC 32.8 g/dL (31.0-37.0); MCV 93.3 fL (80.0-100.0); Monocytes # (A) 0.3 k/uL (0-1.0); Monocytes % (A) 5 %; Neutrophils % (A) 66 %; Platelet Count 193 k/uL (150-450); RBC 5.16 m/uL (3.80-5.40); RDW 13.1 % (11.5-15.5)
[2021-10-05 12:28] LABS: Partial Thromboplastin Time 25.3 sec (22.0-30.0); Prothrombin Time 11.2 sec (9.0-12.0)
[2021-10-05 12:34] LABS: ALT 49 U/L (4-34); AST 69 U/L (14-36); African American GFR (CKD) >90 (>60 ml/min/1.73 sqM); Alkaline Phosphatase 152 U/L (38-126); Anion Gap 8 mmol/L; Blood Urea Nitrogen 11 mg/dL (7-17); Carbon Dioxide 23 mmol/L (22-30); Chloride 108 mmol/L (98-107); Glucose 117 mg/dL (74-99); Magnesium 1.6 mg/dL (1.6-2.3); Non-African American GFR(CKD) 84 (>60 ml/min/1.73 sqM); Potassium 3.7 mmol/L (3.5-5.1); Sodium 139 mmol/L (137-145); Total Bilirubin 0.8 mg/dL (0.2-1.3); Total Protein 7.9 g/dL (6.3-8.2)
--- NOTE | 2021-10-05 12:56 | XR ---
EXAMINATION TYPE: XR chest 2V DATE OF EXAM: 10/05/2021 COMPARISON: 09/03/2020 TECHNIQUE: PA and lateral views submitted. HISTORY: Shortness of breath FINDINGS: The lungs are clear and there is no pneumothorax, pleural effusion, or focal pneumonia. Heart size is normal. Hypertrophic and degenerative changes spine. Hyperinflation suggests COPD. Atherosclerotic change aorta. Biapical pleural thickening. Diffuse osteopenia. IMPRESSION: 1. No acute process.
[2021-10-05 13:05] LABS: Appearance,Urine Clear (Clear); Bilirubin,Urine Negative (Negative); Blood,Urine Negative (Negative); Color,Urine Light Yellow; Glucose,Urine (UA) Negative (Negative); Ketones,Urine Negative (Negative); Leukocyte Esterase,Urine Trace (Negative); Nitrite,Urine Negative (Negative); Protein,Urine Negative (Negative); RBC,Urine 1 /hpf (0-5); Specific Gravity,Urine 1.006 (1.001-1.035); Squamous Epithelial Cell,Urine 1 /hpf (0-4); Urobilinogen,Urine <2.0 mg/dL (<2.0); WBC,Urine 4 /hpf (0-5)
--- NOTE | 2021-10-05 13:38 | ED ---
General Adult HPI - General Chief complaint: Chest Pain Stated complaint: abn EKG Time Seen by Provider: 10/05/21 12:00 Source: patient, family, RN notes reviewed, old records reviewed Mode of arrival: wheelchair Limitations: no limitations - History of Present Illness Initial comments: This is a 81-year-old female who presents emergency Department stating that she woke up about 2:30 this morning with chest heaviness which radiated to her back. Patient states she was also very dizzy. Patient denied any shortness of breath. Patient stated she was nauseated but did not vomit. Patient states it lasted until about 11:00 this morning. Patient states currently she is asymptomatic. Patient denies any recent fever chills or cough. Patient denies any palpitations. Patient denies abdominal pain patient denies any diarrhea. Patient denies any recent injury or trauma. - Related Data Home Medications Medication Instructions Recorded Confirmed Atorvastatin [Lipitor] 20 mg PO HS 02/24/14 10/05/21 Losartan [Cozaar] 50 mg PO HS 03/21/19 10/05/21 Aspirin EC [Ecotrin Low Dose] 81 mg PO HS 03/05/21 10/05/21 Calcium Carbonate/Vitamin D3 1 tab PO HS 10/05/21 10/05/21 [Calcium 600-Vit D3 10 mcg (400 Iu)] Nitroglycerin Sl Tabs [Nitrostat] 0.4 mg SUBLINGUAL Q5M PRN 10/05/21 10/05/21 Allergies Allergy/AdvReac Type Severity Reaction Status Date / Time No Known Allergies Allergy Verified 10/05/21 16:31 Review of Systems ROS Statement: Those systems with pertinent positive or pertinent negative responses have been documented in the HPI. ROS Other: All systems not noted in ROS Statement are negative. Past Medical History Past Medical History: Coronary Artery Disease (CAD), GERD/Reflux, Hyperlipidemia, Hypertension, Osteoarthritis (OA) Additional Past Medical History / Comment(s): sepsis Hx. polyp in gallbladder Hx. frequent UTI, "headaches". "palitations", occular migraines, pancreatitis History of Any Multi-Drug Resistant Organisms: None Reported Past Surgical History: Adenoidectomy, Heart Catheterization With Stent, Tonsillectomy, Tubal Ligation Additional Past Surgical History / Comment(s): Hx.benign lump removed from Left hand and tongue Past Anesthesia/Blood Transfusion Reactions: No Reported Reaction Date of Last Stent Placement:: 2012 Past Psychological History: No Psychological Hx Reported Smoking Status: Never smoker Past Alcohol Use History: None Reported Past Drug Use History: None Reported - Past Family History Mother Family Medical History: Cancer Additional Family Medical History / Comment(s): Mother at age 90 hx of uterine cancer. Father Family Medical History: Cancer Additional Family Medical History / Comment(s): Father at age 83 from prostate cancer and esophageal cancer. Brother(s) Family Medical History: Cancer Additional Family Medical History / Comment(s): Patient had a half-brother at age 68 from lung cancer. Sister(s) Family Medical History: Cancer Additional Family Medical History / Comment(s): Patient had a half sister that at age 69 from lung cancer. Daughter(s) History Unknown: Yes Family Medical History: CVA/TIA, Hypertension Additional Family Medical History / Comment(s): Patient has 4 daughters one daughter had stroke age 33. Other daughters have hypertension. Son(s) History Unknown: Yes Family Medical History: Hypertension Additional Family Medical History / Comment(s): Patient has 3 sons all with hypertension. General Exam - General Exam Comments Initial Comments: GENERAL: Patient is well-developed and well-nourished. Patient is nontoxic and well- hydrated and is in mild distress. ENT: Neck is soft and supple. No significant lymphadenopathy is noted. Oropharynx is clear. Moist mucous membranes. Neck has full range of motion without eliciting any pain. EYES: The sclera were anicteric and conjunctiva were pink and moist. Extraocular movements were intact and pupils were equal round and reactive to light. Eyelid s were unremarkable. PULMONARY: Unlabored respirations. Good breath sounds bilaterally. No audible rales rhonchi or wheezing was noted. CARDIOVASCULAR: There is a regular rate and rhythm without any murmurs gallops or rubs. ABDOMEN: Soft and nontender with normal bowel sounds. SKIN: Skin is clear with no lesions or rashes and otherwise unremarkable. NEUROLOGIC: Patient is alert and oriented x3. Cranial nerves II through XII are grossly intact. Motor and sensory are also intact. Normal speech, volume and content. Symmetrical smile. MUSCULOSKELETAL: Normal extremities with adequate strength and full range of motion. LYMPHATICS: No significant lymphadenopathy is noted PSYCHIATRIC: Normal psychiatric evaluation. Limitations: no limitations Course Vital Signs 10/05/21 10/05/21 11:36 15:22 Temperature 97.1 F L Pulse Rate 121 H 102 H Respiratory 18 18 Rate Blood Pressure 179/96 169/93 O2 Sat by Pulse 97 97 Oximetry Medical Decision Making - Medical Decision Making EKG shows sinus tachycardia at 118 bpm MS interval 178 QRSs 86 Q-T intervals 434 QTC is 504. Patient's EKG shows no ST segment elevation or depression. Chest x-ray shows no acute abnormality. I spoke with Dr. Milligan she agreed to admit the patient admitted the patient I wrote admitting orders. Patient's heart rate remained at 100 beats a minute which was reduced from earlier but still a little tachycardia. Dr. Milligan wanted heparin started the patient so I started heparin I continued heparin on the floor. - Lab Data Result diagrams: 10/05/21 11:46 10/05/21 11:46 Lab Results 10/05/21 10/05/21 10/05/21 Range/Units 11:46 11:46 11:46 WBC 6.0 (3.8-10.6) k/uL RBC 5.16 (3.80-5.40) m/uL Hgb 15.8 (11.4-16.0) gm/dL Hct 48.1 H (34.0-46.0) % MCV 93.3 (80.0-100.0) fL MCH 30.6 (25.0-35.0) pg MCHC 32.8 (31.0-37.0) g/dL RDW 13.1 (11.5-15.5) % Plt Count 193 (150-450) k/uL MPV 8.0 Neutrophils % 66 % Lymphocytes % 26 % Monocytes % 5 % Eosinophils % 1 % Basophils % 1 % Neutrophils # 4.0 (1.3-7.7) k/uL Lymphocytes # 1.5 (1.0-4.8) k/uL Monocytes # 0.3 (0-1.0) k/uL Eosinophils # 0.0 (0-0.7) k/uL Basophils # 0.1 (0-0.2) k/uL PT 11.2 (9.0-12.0) sec INR 1.0 (<1.2) APTT 25.3 (22.0-30.0) sec D-Dimer (<0.60) mg/L FEU Sodium 139 (137-145) mmol/L Potassium 3.7 (3.5-5.1) mmol/L Chloride 108 H (98-107) mmol/L Carbon Dioxide 23 (22-30) mmol/L Anion Gap 8 mmol/L BUN 11 (7-17) mg/dL Creatinine 0.66 (0.52-1.04) mg/dL Est GFR (CKD-EPI)AfAm >90 (>60 ml/min/1.73 sqM) Est GFR (CKD-EPI)NonAf 84 (>60 ml/min/1.73 sqM) Glucose 117 H (74-99) mg/dL Calcium 9.0 (8.4-10.2) mg/dL Magnesium 1.6 (1.6-2.3) mg/dL Total Bilirubin 0.8 (0.2-1.3) mg/dL AST 69 H (14-36) U/L ALT 49 H (4-34) U/L Alkaline Phosphatase 152 H (38-126) U/L Troponin I (0.000-0.034) ng/mL Total Protein 7.9 (6.3-8.2) g/dL Albumin 4.0 (3.5-5.0) g/dL Lipase (23-300) U/L TSH (0.465-4.680) mIU/L Urine Color Urine Appearance (Clear) Urine pH (5.0-8.0) Ur Specific [place] (1.001-1.035) Urine Protein (Negative) Urine Glucose (UA) (Negative) Urine Ketones (Negative) Urine Blood (Negative) Urine Nitrite (Negative) Urine Bilirubin (Negative) Urine Urobilinogen (<2.0) mg/dL Ur Leukocyte Esterase (Negative) Urine RBC (0-5) /hpf Urine WBC (0-5) /hpf Ur Squamous Epith Cells (0-4) /hpf 10/05/21 10/05/21 10/05/21 Range/Units 11:46 11:46 11:46 WBC (3.8-10.6) k/uL RBC (3.80-5.40) m/uL Hgb (11.4-16.0) gm/dL Hct (34.0-46.0) % MCV (80.0-100.0) fL MCH (25.0-35.0) pg MCHC (31.0-37.0) g/dL RDW (11.5-15.5) % Plt Count (150-450) k/uL MPV Neutrophils % % Lymphocytes % % Monocytes % % Eosinophils % % Basophils % % Neutrophils # (1.3-7.7) k/uL Lymphocytes # (1.0-4.8) k/uL Monocytes # (0-1.0) k/uL Eosinophils # (0-0.7) k/uL Basophils # (0-0.2) k/uL PT (9.0-12.0) sec INR (<1.2) APTT (22.0-30.0) sec D-Dimer (<0.60) mg/L FEU Sodium (137-145) mmol/L Potassium (3.5-5.1) mmol/L Chloride (98-107) mmol/L Carbon Dioxide (22-30) mmol/L Anion Gap mmol/L BUN (7-17) mg/dL Creatinine (0.52-1.04) mg/dL Est GFR (CKD-EPI)AfAm (>60 ml/min/1.73 sqM) Est GFR (CKD-EPI)NonAf (>60 ml/min/1.73 sqM) Glucose (74-99) mg/dL Calcium (8.4-10.2) mg/dL Magnesium (1.6-2.3) mg/dL Total Bilirubin (0.2-1.3) mg/dL AST (14-36) U/L ALT (4-34) U/L Alkaline Phosphatase (38-126) U/L Troponin I <0.012 (0.000-0.034) ng/mL Total Protein (6.3-8.2) g/dL Albumin (3.5-5.0) g/dL Lipase 154 (23-300) U/L TSH 4.220 (0.465-4.680) mIU/L Urine Color Urine Appearance (Clear) Urine pH (5.0-8.0) Ur Specific [place] (1.001-1.035) Urine Protein (Negative) Urine Glucose (UA) (Negative) Urine Ketones (Negative) Urine Blood (Negative) Urine Nitrite (Negative) Urine Bilirubin (Negative) Urine Urobilinogen (<2.0) mg/dL Ur Leukocyte Esterase (Negative) Urine RBC (0-5) /hpf Urine WBC (0-5) /hpf Ur Squamous Epith Cells (0-4) /hpf 10/05/21 10/05/21 Range/Units 11:46 12:43 WBC (3.8-10.6) k/uL RBC (3.80-5.40) m/uL Hgb (11.4-16.0) gm/dL Hct (34.0-46.0) % MCV (80.0-100.0) fL MCH (25.0-35.0) pg MCHC (31.0-37.0) g/dL RDW (11.5-15.5) % Plt Count (150-450) k/uL MPV Neutrophils % % Lymphocytes % % Monocytes % % Eosinophils % % Basophils % % Neutrophils # (1.3-7.7) k/uL Lymphocytes # (1.0-4.8) k/uL Monocytes # (0-1.0) k/uL Eosinophils # (0-0.7) k/uL Basophils # (0-0.2) k/uL PT (9.0-12.0) sec INR (<1.2) APTT (22.0-30.0) sec D-Dimer 0.65 H (<0.60) mg/L FEU Sodium (137-145) mmol/L Potassium (3.5-5.1) mmol/L Chloride (98-107) mmol/L Carbon Dioxide (22-30) mmol/L Anion Gap mmol/L BUN (7-17) mg/dL Creatinine (0.52-1.04) mg/dL Est GFR (CKD-EPI)AfAm (>60 ml/min/1.73 sqM) Est GFR (CKD-EPI)NonAf (>60 ml/min/1.73 sqM) Glucose (74-99) mg/dL Calcium (8.4-10.2) mg/dL Magnesium (1.6-2.3) mg/dL Total Bilirubin (0.2-1.3) mg/dL AST (14-36) U/L ALT (4-34) U/L Alkaline Phosphatase (38-126) U/L Troponin I (0.000-0.034) ng/mL Total Protein (6.3-8.2) g/dL Albumin (3.5-5.0) g/dL Lipase (23-300) U/L TSH (0.465-4.680) mIU/L Urine Color Light Yellow Urine Appearance Clear (Clear) Urine pH 6.0 (5.0-8.0) Ur Specific [place] 1.006 (1.001-1.035) Urine Protein Negative (Negative) Urine Glucose (UA) Negative (Negative) Urine Ketones Negative (Negative) Urine Blood Negative (Negative) Urine Nitrite Negative (Negative) Urine Bilirubin Negative (Negative) Urine Urobilinogen <2.0 (<2.0) mg/dL Ur Leukocyte Esterase Trace H (Negative) Urine RBC 1 (0-5) /hpf Urine WBC 4 (0-5) /hpf Ur Squamous Epith Cells 1 (0-4) /hpf Critical Care Time Critical Care Time: Yes Total Critical Care Time: 35 Disposition Clinical Impression: Tachycardia, Unstable angina Disposition: ADMITTED IP TO THIS [facility] Time of Disposition: 15:40
[2021-10-05] MEDS ORDERED: NITROGLYCERIN OINT 1 INCH/GM PACKET TOPICAL STA (15:25)
[2021-10-05] MEDS ORDERED: ASPIRIN 81 MG PO STA (15:25)
[2021-10-05] MEDS ORDERED: NITROGLYCERIN SL TABS 0.4 MG TAB SUBLINGUAL PRN ×2 (15:41→22:55)
[2021-10-05] MEDS ORDERED: HEPARIN SODIUM 1,000 UN/ML (10ML VL) IV ONE (17:48)
[2021-10-05] MEDS: NITROGLYCERIN OINT 1 INCH/GM PACKET TOPICAL SCH ×2 (17:57→23:24)
[2021-10-05] MEDS ORDERED: HEPARIN SOD,PORK IN 0.45% NACL 25,000 UNIT in 0.45% NACL 1 250ML.BAG IV SCH (18:15)
[2021-10-05] MEDS ORDERED: ASPIRIN 81 MG PO SCH (23:00)
[2021-10-05] MEDS ORDERED: ATORVASTATIN 20 MG TAB PO SCH (23:00)
[2021-10-05] MEDS ORDERED: CALCIUM CARB-VIT D 500 MG-5 MCG TAB PO SCH (23:00)
[2021-10-05] MEDS ORDERED: LOSARTAN 50 MG TAB PO SCH (23:00)
[2021-10-06] MEDS: NITROGLYCERIN OINT 1 INCH/GM PACKET TOPICAL SCH (05:30)
[2021-10-06] MEDS ORDERED: LOSARTAN 50 MG TAB PO SCH (09:00)
[2021-10-06] MEDS ORDERED: ASPIRIN 325 MG TAB PO SCH (09:00)
[2021-10-06 09:13] VITALS: BP 158/94; PULSE 75; RESP 18; TEMP 97.5
--- NOTE | 2021-10-06 10:04 | P.CRDCN ---
History of Present Illness Consult date: 10/06/21 History of present illness: HISTORY OF PRESENT ILLNESS: This is a 81-year-old female with a past medical history significant for coronary artery disease, hypertension, hyperlipidemia, atrial tachycardia, and sick sinus syndrome. Patient follows in the office with Dr. Tyler. We have been asked to see the patient in consultation for chest pain. Patient examined at the bedside. Patient states she woke up at 2 AM and was not feeling well. She reports feeling nauseated, dizzy, shaky, palpitations, and heaviness in her chest. She states the pain lasted till about 10 AM so she decided to come to the ER for further evaluation. For the time of examination this morning she denies any chest pain or pressure. Patient's blood pressure has been elevated with a systolic in the 150s to 160s. * EKG reveals sinus tachycardia with no signs of acute ischemia * Chest xray negative for acute process * Laboratory data: WBC 6.0. Hemoglobin 15.8. Platelet count 193. D-dimer 0.65. Sodium 139. Potassium 3.7. BUN 11. Creatinine 0.66. Magnesium 1.6. Troponin negative 3 * Current home cardiac medications include losartan 50 mg at night, aspirin 81 mg at night, atorvastatin 20 mg at night * Most recent echocardiogram obtained in June 2020 revealed ejection fraction 55%, mild AR, mild MR, mild TR * Cardiac catheterization history: 2012 with stenting to the mid LAD REVIEW OF SYSTEMS: At the time of my exam: CONSTITUTIONAL: Denies fever or chills. HEENT: Denies blurred vision, vision changes, or eye pain. Denies hemoptysis CARDIOVASCULAR: Denies chest pain. Denies orthopnea. Denies PND. Denies palpitat ions RESPIRATORY: Denies shortness of breath. GASTROINTESTINAL: Denies abdominal pain. Denies nausea or vomiting. HEMATOLOGIC: Denies bleeding disorders. GENITOURINARY: Denies any blood in urine. SKIN: Denies pruitis. Denies rash. PHYSICAL EXAM: VITAL SIGNS: Reviewed. GENERAL: Well-developed in no acute distress. HEENT: Head is normocephalic. Pupils are equal, round. Sclerae anicteric. Mucous membranes of the mouth are moist. Neck supple. No JVD or thyromegaly LUNGS: Respirations even and unlabored. Lungs essentially clear to auscultation bilaterally. HEART: Regular rate and rhythm. S1 and S2 heard. ABDOMEN: Soft. Nondistended. Nontender. EXTREMITIES: Normal range of motion. No clubbing or cyanosis. Peripheral pulses intact. No lower extremity edema NEUROLOGIC: Awake and alert. Oriented x 3. ASSESSMENT: Chest pain Hypertension, uncontrolled Coronary artery disease with previous PCI Hyperlipidemia History of atrial tachycardia History of sick sinus syndrome PLAN: An acute coronary event has been ruled out No need to repeat echocardiogram at this time Resume home cardiac medications Increase losartan to 50 mg twice a day for optimal blood pressure control Discontinue IV heparin Obtained CTA chest Further recommendations pending patient course Nurse practitioner note has been reviewed by physician. Signing provider agrees with the documented findings, assessment, and plan of care. Past Medical History Past Medical History: Coronary Artery Disease (CAD), GERD/Reflux, Hyperlipidemia, Hypertension, Osteoarthritis (OA) Additional Past Medical History / Comment(s): sepsis Hx. polyp in gallbladder Hx. frequent UTI, "headaches". "palitations", occular migraines, pancreatitis History of Any Multi-Drug Resistant Organisms: None Reported Past Surgical History: Adenoidectomy, Heart Catheterization With Stent, Tonsillectomy, Tubal Ligation Additional Past Surgical History / Comment(s): Hx.benign lump removed from Left hand and tongue Past Anesthesia/Blood Transfusion Reactions: No Reported Reaction Date of Last Stent Placement:: 2012 Past Psychological History: No Psychological Hx Reported Smoking Status: Never smoker Past Alcohol Use History: None Reported Past Drug Use History: None Reported - Past Family History Mother Family Medical History: Cancer Additional Family Medical History / Comment(s): Mother at age 90 hx of uterine cancer. Father Family Medical History: Cancer Additional Family Medical History / Comment(s): Father at age 83 from prostate cancer and esophageal cancer. Brother(s) Family Medical History: Cancer Additional Family Medical History / Comment(s): Patient had a half-brother at age 68 from lung cancer. Sister(s) Family Medical History: Cancer Additional Family Medical History / Comment(s): Patient had a half sister that at age 69 from lung cancer. Daughter(s) History Unknown: Yes Family Medical History: CVA/TIA, Hypertension Additional Family Medical History / Comment(s): Patient has 4 daughters one daughter had stroke age 33. Other daughters have hypertension. Son(s) History Unknown: Yes Family Medical History: Hypertension Additional Family Medical History / Comment(s): Patient has 3 sons all with hype rtension. Medications and Allergies Home Medications Medication Instructions Recorded Confirmed Type Atorvastatin [Lipitor] 20 mg PO HS 02/24/14 10/05/21 History Losartan [Cozaar] 50 mg PO HS 03/21/19 10/05/21 History Aspirin EC [Ecotrin Low Dose] 81 mg PO HS 03/05/21 10/05/21 History Calcium Carbonate/Vitamin D3 1 tab PO HS 10/05/21 10/05/21 History [Calcium 600-Vit D3 10 mcg (400 Iu)] Nitroglycerin Sl Tabs [Nitrostat] 0.4 mg SUBLINGUAL Q5M PRN 10/05/21 10/05/21 History Allergies Allergy/AdvReac Type Severity Reaction Status Date / Time No Known Allergies Allergy Verified 10/05/21 16:31 Physical Exam Vitals: Vital Signs Temp Pulse Pulse Resp BP BP Pulse Ox 10/06/21 07:00 97.5 F L 75 18 158/94 98 10/06/21 02:33 97.9 F 83 16 129/79 100 10/05/21 22:12 97.8 F 91 16 165/96 96 10/05/21 20:00 98.0 F 98 17 153/98 97 10/05/21 18:20 93 18 139/84 98 10/05/21 15:22 102 H 18 169/93 97 10/05/21 11:36 97.1 F L 121 H 18 179/96 97 Intake and Output 10/05/21 10/06/21 10/06/21 22:59 06:59 14:59 Intake Total 90.525 Balance 90.525 Intake: Intake, IV Titration 90.525 Amount Heparin Sod,Pork in 0.45% 90.525 NaCl 25,000 unit In 0.45 % NaCl 1 250ml.bag @ 12 UNITS/KG/HR 9.253 mls/hr IV .Q[facility]H [facility] Rx#: [id number] Other: # Voids 1 0 Weight 77.111 kg Results 10/05/21 11:46 10/05/21 11:46 Cardiac Enzymes 10/05/21 10/05/21 10/05/21 Range/Units 11:46 11:46 16:36 AST 69 H (14-36) U/L Troponin I <0.012 <0.012 (0.000-0.034) ng/mL 10/05/21 Range/Units 20:36 AST (14-36) U/L Troponin I <0.012 (0.000-0.034) ng/mL Coagulation 10/05/21 10/06/21 10/06/21 Range/Units 11:46 01:39 08:34 PT 11.2 (9.0-12.0) sec APTT 25.3 107.6 H* 55.5 H (22.0-30.0) sec CBC 10/05/21 Range/Units 11:46 WBC 6.0 (3.8-10.6) k/uL RBC 5.16 (3.80-5.40) m/uL Hgb 15.8 (11.4-16.0) gm/dL Hct 48.1 H (34.0-46.0) % Plt Count 193 (150-450) k/uL Comprehensive Metabolic Panel 10/05/21 Range/Units 11:46 Sodium 139 (137-145) mmol/L Potassium 3.7 (3.5-5.1) mmol/L Chloride 108 H (98-107) mmol/L Carbon Dioxide 23 (22-30) mmol/L BUN 11 (7-17) mg/dL Creatinine 0.66 (0.52-1.04) mg/dL Glucose 117 H (74-99) mg/dL Calcium 9.0 (8.4-10.2) mg/dL AST 69 H (14-36) U/L ALT 49 H (4-34) U/L Alkaline Phosphatase 152 H (38-126) U/L Total Protein 7.9 (6.3-8.2) g/dL Albumin 4.0 (3.5-5.0) g/dL Current Medications Generic Name Dose Route Start Last Admin Trade Name Freq PRN Reason Stop Dose Admin Aspirin 81 mg 10/05/21 23:00 10/05/21 23:23 Aspirin 81 Mg PO 81 mg HS KIN Administration Atorvastatin Calcium 20 mg 10/05/21 23:00 10/05/21 23:23 Atorvastatin 20 Mg Tab PO 20 mg HS KIN Administration Calcium Carbonate 1 each 10/05/21 23:00 10/05/21 23:23 Calcium Carb-Vit D 500 Mg-5 Mcg Tab PO 1 each HS KIN Administration Losartan Potassium 50 mg 10/06/21 09:00 Losartan 50 Mg Tab PO BID KIN Nitroglycerin 0.4 mg 10/05/21 15:41 10/05/21 15:59 Nitroglycerin Sl Tabs 0.4 Mg Tab SUBLINGUAL 0.4 mg Q5M PRN Administration Chest Pain Nitroglycerin 0.4 mg 10/05/21 22:55 Nitroglycerin Sl Tabs 0.4 Mg Tab SUBLINGUAL Q5M PRN Chest Pain Intake and Output 10/05/21 10/06/21 10/06/21 22:59 06:59 14:59 Intake Total 90.525 Balance 90.525 Intake: Intake, IV Titration 90.525 Amount Heparin Sod,Pork in 0.45% 90.525 NaCl 25,000 unit In 0.45 % NaCl 1 250ml.bag @ 12 UNITS/KG/HR 9.253 mls/hr IV .Q24H [facility] Rx#: [id number] Other: # Voids 1 0 Weight 77.111 kg 10/05/21 11:46 10/05/21 11:46
--- NOTE | 2021-10-06 10:40 | CT ---
EXAMINATION TYPE: CT chest angio for PE DATE OF EXAM: 10/06/2021 COMPARISON: Chest x-ray 10/05/2021 HISTORY: Abnormal d-dimer. Also evaluate aorta. CT DLP: 283.7 mGycm Automated exposure control for dose reduction was used. CONTRAST: CT Chest for pulmonary embolism performed with with IV Contrast, patient injected with 100 mL of Isov ue 370. Three-dimensional reconstructions performed on an alternate workstation and reviewed FINDINGS: LUNGS: The lungs are grossly clear, there is no concerning parenchymal mass or nodule identified. Sca ttered lung cysts are present of varying sizes. There is no pleural effusion or pneumothorax seen. T he tracheobronchial tree is patent. MEDIASTINUM: There is satisfactory enhancement of the pulmonary artery and its branches, there is no CT evidence for pulmonary embolism. There are no greater than 1 cm hilar or mediastinal lymph nodes. No pericardial effusion is seen. There are dense coronary artery calcifications present AORTA: No additional significant abnormality is seen. OTHER: Small hiatal hernia is present.. IMPRESSION: No evident pulmonary embolus. Scattered lung cysts are present. Coronary artery disease.
--- NOTE | 2021-10-06 12:22 | P.HPIM ---
History of Present Illness H&P Date: 10/06/21 HISTORY AND PHYSICAL AND DISCHARGE SUMMARY: HISTORY OF PRESENT ILLNESS This is a 81-year-old female patient of Dr. Pang and Dr. Tyler with a previous medical history significant for coronary artery disease status post the PCI of the LAD back in October 2012, hypertension and hypertensive cardiovascular disease with left ventricular hypertrophy, hyperlipidemia. Patient woke up yesterday at 2:30 in the morning with chest heaviness that radiated to her back along with dizziness and nausea without emesis. This lasted until about 11 in the morning. Patient denies history of GERD. She states she's been told in the remote past that she had a small hiatal hernia and has had one episode of pancreatitis of unknown etiology. Patient presented to [facility] emergency center for evaluation. Initial blood pressure 179/96, afebrile, heart rate 121, pulse ox 97% on room air. EKG was a sinus tachycardia at [address] bpm with no acute ST c hanges. Blood pressure this morning is 129/79. Chest x-ray reveals no acute abnormality CBC is unremarkable. Chloride 108 otherwise electrolytes renal function are normal. Blood sugar 117. Total bilirubin 0.8, AST 69, ALT 49, alkaline phosphatase 152. Troponin negative 3. Lipase 154. TSH 4.2-0. D-dimer 0.65 urinalysis clear leukoesterase trace, WBC 4. Patient was started on aspirin, heparin drip, losartan, Nitro-Bid ointment, placed on the observation unit and cardiology consult requested. Patient has been seen by cardiology and losartan increased to twice daily dosing at [address] angiogram of the chest is negative for pulmonary embolism. Scattered lung sister present. Coronary artery disease. Patient has been seen by cardiology and cleared for discharge, acute coronary syndrome has been ruled out. Patient will be discharged home today in stable condition. REVIEW OF SYSTEMS Constitutional: No fever, no chills, no night sweats. No weight change. No weakness, fatigue or lethargy. No daytime sleepiness. EENT: No headache. No blurred vision or double vision, no loss of vision. No loss of Hearing, no ringing in the ears, no dizziness. No nasal drainage or congestion. No epistaxis. No sore throat. Lungs: No shortness of breath, cough, no sputum production. No wheezing. Cardiovascular: No chest pain, no lower extremity edema. No palpitations. No paroxysmal nocturnal dyspnea. No orthopnea. No lightheadedness or dizziness. No syncopal episodes. Abdominal: No abdominal pain. No nausea, vomiting. No diarrhea. No constipation. No bloody or tarry stools. No loss of appetite. Genitourinary: No dysuria, increased frequency, urgency. No urinary retention. Musculoskeletal: No myalgias. No muscle weakness, no gait dysfunction, no frequent falls. No back pain. No neck pain. Integumentary: No wounds, no lesions. No rash or pruritus. No unusual bruising. No change in hair or nails. Neurologic: No aphasia. No facial droop. No change in mentation. No head injury. No headache. No paralysis. No paresthesia. Psychiatric: No depression. No anxiety. No mood swings. Endocrine: No abnormal blood sugars. No weight change. No excessive sweating or thirst. No cold intolerance. SOCIAL HISTORY Patient is a lifelong nonsmoker, no alcohol use. FAMILY HISTORY Mother at age 90 from uterine cancer. Father at age 83 from prostate cancer and esophageal cancer. Patient had a half-brother at age 60 from lung cancer. Patient had a half sister that at age 69 from lung cancer. Patient has 4 daughters and one has of a stroke at age 33. Other daughters have hypertension. Patient has 3 sons all with hypertension. PHYSICAL EXAMINATION Gen: This is a 81-year-old female. She is resting in bed and appears to be comfortable and in no acute distress. HEENT: Head is atraumatic, normocephalic. Pupils equal, round. Sclerae is anicteric. NECK: Supple. No JVD. No lymphadenopathy. No thyromegaly. LUNGS: Clear to auscultation. No wheezes or rhonchi. No intercostal retractions. HEART: Regular rate and rhythm. Diastolic murmur at the fifth left intercostal space. ABDOMEN: Soft. Bowel sounds are present. No masses. No tenderness. EXTREMITIES: No pedal edema. No calf tenderness. NEUROLOGICAL: Patient is awake, alert and oriented x3. Cranial nerves 2 through 12 are grossly intact. ASSESSMENT AND PLAN 1. Chest pain with negative troponins. Cardiology consult appreciated. Heparin drip has been discontinued. CTA of the chest negative. 2. Hypertension, hypertensive cardiovascular disease presenting with uncontrolled hypertension. Losartan increased to twice daily dosing, 50 mg. 3. Hyperlipidemia. Continue atorvastatin 20 g at bedtime. Patient placed as observation status. DISCHARGE MEDICATIONS Atorvastatin [Lipitor] 20 mg PO HS 02/24/14 [History] Aspirin EC [Ecotrin Low Dose] 81 mg PO HS 03/05/21 [History] Calcium Carbonate/Vitamin D3 [Calcium 600-Vit D3 10 mcg (400 Iu)] 1 tab PO HS 10/05/21 [History] Nitroglycerin Sl Tabs [Nitrostat] 0.4 mg SUBLINGUAL Q5M PRN 10/05/21 [History] Losartan [Cozaar] 50 mg PO BID #60 tab 10/06/21 [Rx] DISCHARGE PLAN Return home. Greater than 35 minutes was utilized and coordinating patient's discharge. Impression and plan of care have been directed as dictated by the signing physician. Radha Hayes nurse practitioner acting as scribe for signing physi gustavo. Past Medical History Past Medical History: Coronary Artery Disease (CAD), GERD/Reflux, Hyperlipidemia, Hypertension, Osteoarthritis (OA) Additional Past Medical History / Comment(s): sepsis Hx. polyp in gallbladder Hx. frequent UTI, "headaches". "palitations", occular migraines, pancreatitis History of Any Multi-Drug Resistant Organisms: None Reported Past Surgical History: Adenoidectomy, Heart Catheterization With Stent, Tonsillectomy, Tubal Ligation Additional Past Surgical History / Comment(s): Hx.benign lump removed from Left hand and tongue Past Anesthesia/Blood Transfusion Reactions: No Reported Reaction Date of Last Stent Placement:: 2012 Past Psychological History: No Psychological Hx Reported Smoking Status: Never smoker Past Alcohol Use History: None Reported Past Drug Use History: None Reported - Past Family History Mother Family Medical History: Cancer Additional Family Medical History / Comment(s): Mother at age 90 hx of uterine cancer. Father Family Medical History: Cancer Additional Family Medical History / Comment(s): Father at age 83 from prostate cancer and esophageal cancer. Brother(s) Family Medical History: Cancer Additional Family Medical History / Comment(s): Patient had a half-brother at age 68 from lung cancer. Sister(s) Family Medical History: Cancer Additional Family Medical History / Comment(s): Patient had a half sister that at age 69 from lung cancer. Daughter(s) History Unknown: Yes Family Medical History: CVA/TIA, Hypertension Additional Family Medical History / Comment(s): Patient has 4 daughters one daughter had stroke age 33. Other daughters have hypertension. Son(s) History Unknown: Yes Family Medical History: Hypertension Additional Family Medical History / Comment(s): Patient has 3 sons all with hype rtension. Medications and Allergies Home Medications Medication Instructions Recorded Confirmed Type Atorvastatin [Lipitor] 20 mg PO HS 02/24/14 10/05/21 History Aspirin EC [Ecotrin Low Dose] 81 mg PO HS 03/05/21 10/05/21 History Calcium Carbonate/Vitamin D3 1 tab PO HS 10/05/21 10/05/21 History [Calcium 600-Vit D3 10 mcg (400 Iu)] Nitroglycerin Sl Tabs [Nitrostat] 0.4 mg SUBLINGUAL Q5M PRN 10/05/21 10/05/21 History Losartan [Cozaar] 50 mg PO BID #60 tab 10/06/21 Rx Allergies Allergy/AdvReac Type Severity Reaction Status Date / Time No Known Allergies Allergy Verified 10/05/21 16:31 Physical Exam Vitals: Vital Signs Temp Pulse Pulse Resp BP BP Pulse Ox 10/06/21 02:33 97.9 F 83 16 129/79 100 10/05/21 22:12 97.8 F 91 16 165/96 96 10/05/21 20:00 98.0 F 98 17 153/98 97 10/05/21 18:20 93 18 139/84 98 10/05/21 15:22 102 H 18 169/93 97 10/05/21 11:36 97.1 F L 121 H 18 179/96 97 Intake and Output 10/05/21 10/06/21 10/06/21 22:59 06:59 14:59 Intake Total 90.525 Balance 90.525 Intake: Intake, IV Titration 90.525 Amount Heparin Sod,Pork in 0.45% 90.525 NaCl 25,000 unit In 0.45 % NaCl 1 250ml.bag @ 12 UNITS/KG/HR 9.253 mls/hr IV .Q24H [facility] Rx#: [id number] Other: # Voids 1 0 Weight 77.111 kg Results CBC & Chem 7: 10/05/21 11:46 10/05/21 11:46 Labs: Abnormal Lab Results - Last 24 Hours (Table) 10/05/21 10/05/21 10/05/21 Range/Units 11:46 11:46 11:46 Hct 48.1 H (34.0-46.0) % APTT (22.0-30.0) sec D-Dimer 0.65 H (<0.60) mg/L FEU Chloride 108 H (98-107) mmol/L Glucose 117 H (74-99) mg/dL AST 69 H (14-36) U/L ALT 49 H (4-34) U/L Alkaline Phosphatase 152 H (38-126) U/L Ur Leukocyte Esterase (Negative) 10/05/21 10/06/21 Range/Units 12:43 01:39 Hct (34.0-46.0) % APTT 107.6 H* (22.0-30.0) sec D-Dimer (<0.60) mg/L FEU Chloride (98-107) mmol/L Glucose (74-99) mg/dL AST (14-36) U/L ALT (4-34) U/L Alkaline Phosphatase (38-126) U/L Ur Leukocyte Esterase Trace H (Negative)
[2021-10-07 01:40] LABS: Chol/HDL Ratio 2.39 Ratio; LDL Cholesterol,Calculated 58.5 mg/dL (0.0-131.0); VLDL Calculation 17.64 mg/dL (5.00-40.00)
== END 2021-10-06 12:16 | disposition home or self-care (01) ==
LOC: EC 11:29 → 6NMEDSUR 15:43
PROVIDERS: ADMIT Internal Medicine; ATTEND Internal Medicine
DX: R07.89 Other chest pain (principal); I11.9 Hypertensive heart disease without heart failure; E78.5 Hyperlipidemia, unspecified; I25.10 Atherosclerotic heart disease of native coronary artery without angina pectoris; I49.5 Sick sinus syndrome; R79.9 Abnormal finding of blood chemistry, unspecified; M19.90 Unspecified osteoarthritis, unspecified site; K21.9 Gastro-esophageal reflux disease without esophagitis; Z79.899 Other long term (current) drug therapy; Z98.51 Tubal ligation status; Z98.61 Coronary angioplasty status; Z87.440 Personal history of urinary (tract) infections; Z86.69 Personal history of other diseases of the nervous system and sense organs; Z87.19 Personal history of other diseases of the digestive system; Z82.49 Family history of ischemic heart disease and other diseases of the circulatory system; Z82.3 Family history of stroke; Z80.49 Family history of malignant neoplasm of other genital organs; Z80.1 Family history of malignant neoplasm of trachea, bronchus and lung; Z80.0 Family history of malignant neoplasm of digestive organs
CPT/HCPCS: 96376; 96365; 99285; 36415; 93005; 85379; 80061; 80053; 84443; 83690; 83735; 84484; 85025; 85610; 85730 ×2; 81001; 71046; 71275; G0378 ×2; J1644 ×2; Q9967

== ENCOUNTER → 2021-12-22 | Outpatient (CLI) | payer MEDICARE ==
[2021-12-22 18:15] LABS: Basophils # (A) 0.06 X 10*3/uL (0.00-0.10); Basophils % (A) 1.1 %; Eosinophils # (A) 0.11 X 10*3/uL (0.04-0.35); Eosinophils % (A) 2.1 %; HCT 43.6 % (37.2-46.3); HGB 13.5 g/dL (12.0-15.0); Immature Grans, Automated 0.4 %; Lymphocytes # (A) 2.62 X 10*3/uL (0.90-5.00); Lymphocytes % (A) 50.2 %; MCH 29.2 pg (27.0-32.0); MCV 94.4 fL (80.0-97.0); Mean Platelet Volume 10.9 fL (9.5-12.2); Monocytes # (A) 0.68 X 10*3/uL (0.20-1.00); NRBC Per 100 WBC 0 /100 WBCS (0.0-0.0); Neutrophils # (A) 1.73 X 10*3/uL (1.80-7.70); Neutrophils % (A) 33.2 %; Platelet Count 172 X 10*3/uL (140-440); RBC 4.62 X 10*6/uL (4.10-5.20); RDW 13.8 % (11.5-14.5); WBC 5.22 X 10*3/uL (4.50-10.00)
[2021-12-22 18:16] LABS: African American GFR (CKD) 81.3 (60.0-200.0); Albumin 3.7 g/dL (3.8-4.9); Albumin/Globulin Ratio 1.06 (1.60-3.17); Anion Gap 11.6 mmol/L (10.00-18.00); BUN/Creat Ratio 22.5 Ratio (12.00-20.00); Calcium 9.1 mg/dL (8.7-10.3); Carbon Dioxide 25.4 mmol/L (20.0-27.5); Globulin 3.5 g/dL (1.6-3.3); Non-African American GFR(CKD) 70.1 (60.0-200.0); Total Bilirubin 0.6 mg/dL (0.30-1.20); Total Protein 7.2 g/dL (6.2-8.2)
== END | disposition home or self-care (01) ==
LOC: LABWHC1 10:07
PROVIDERS: ATTEND Internal Medicine Gastroenterology
DX: K74.69 Other cirrhosis of liver (principal)
CPT/HCPCS: 36415; 80053; 82105; 85025

== ENCOUNTER → 2021-12-22 | Outpatient (CLI) | payer MEDICARE ==
--- NOTE | 2021-12-22 10:05 | US ---
EXAMINATION TYPE: US liver DATE OF EXAM: 12/22/2021 COMPARISON: 12/22/2020 CLINICAL HISTORY: K74.69 CIRRHOSIS OF LIVER. No prior abdomen surgeries. EXAM MEASUREMENTS: Liver Length: 11.6 cm Gallbladder Wall: 0.2 cm CBD: 0.7 cm Right Kidney: 9.7 x 4.0 x 4.1 cm Suboptimal due to bowel gas Pancreas: Echogenic in appearance Liver: Echogenic. Coarse. Nodular in appearance. Gallbladder: wnl Evidence for sonographic Bernal's sign: neg CBD: wnl Right Kidney: No hydronephrosis or masses seen. Previous cystic lesion not identified, but could be due to limited visualization of kidney from bowel gas IMPRESSION: 1. Coarsened nodular pattern in the liver can be associated with hepatocellular disease including cir rhosis or hepatitis. 2. Previously noted cystic lesion involving the right kidney not well-seen on today's exam which coul d be secondary to overlying bowel gas. 3. Common bile duct measures 7 mm at the upper limits of normal for the patient's age group correlate clinically. No gallstones.
== END | disposition home or self-care (01) ==
LOC: RADUSWWP 09:19
PROVIDERS: ATTEND Internal Medicine Gastroenterology
DX: K76.89 Other specified diseases of liver (principal)
CPT/HCPCS: 76705

== ENCOUNTER → 2022-06-17 | Outpatient (CLI) | payer MEDICARE ==
--- NOTE | 2022-06-17 08:52 | US ---
EXAMINATION TYPE: US liver DATE OF EXAM: 06/17/2022 COMPARISON: US CLINICAL HISTORY: K74.69 CIRRHOSIS OF LIVER. Cirrhosis TECHNIQUE: Multiple sonographic images of the right upper quadrant are obtained. FINDINGS: EXAM MEASUREMENTS: Liver Length: 12.7 cm Gallbladder Wall: 0.2 cm CBD: 0.6 cm Right Kidney: 9.5 x 4.3 x 4.6 cm Pancreas: wnl, tail obscured by overlying bowel gas Liver: Nodular contour, heterogeneous Gallbladder: wnl Evidence for sonographic Bernal's sign: No CBD: wnl Right Kidney: wnl, lower pole gassed out IMPRESSION: Nodular contour to liver correlate for cirrhosis.
[2022-06-17 15:38] LABS: African American GFR (CKD) 88.7 (60.0-200.0); Albumin 3.4 g/dL (3.8-4.9); Albumin/Globulin Ratio 1.13 (1.60-3.17); Anion Gap 16.1 mmol/L (10.00-18.00); BUN/Creat Ratio 24.32 Ratio (12.00-20.00); Calcium 8.8 mg/dL (8.7-10.3); Carbon Dioxide 18.1 mmol/L (20.0-27.5); Non-African American GFR(CKD) 76.5 (60.0-200.0); Potassium 4.6 mmol/L (3.5-5.5); Total Bilirubin 0.6 mg/dL (0.30-1.20); Total Protein 6.4 g/dL (6.2-8.2)
== END | disposition home or self-care (01) ==
LOC: RADUSWWP 07:36
PROVIDERS: ATTEND Internal Medicine Gastroenterology
DX: K74.69 Other cirrhosis of liver (principal)
CPT/HCPCS: 76705; 80053; 82105; 82677; 84702; 85027; 86336

== ENCOUNTER → 2022-10-18 | Outpatient (CLI) | payer MEDICARE ==
--- NOTE | 2022-10-19 08:04 | XR ---
EXAMINATION TYPE: XR chest 2V DATE OF EXAM: 10/18/2022 COMPARISON: 10/06/2019 TECHNIQUE: PA and lateral views submitted. HISTORY: Cough FINDINGS: The lungs are clear and there is no pneumothorax, pleural effusion, or focal pneumonia. Heart size normal and no overt failure. Osseous structures demonstrate hypertrophic and degenerative changes of the spine. Hyperinflation suggests COPD. Biapical thickening. IMPRESSION: 1. No acute process. Correlate for COPD. If symptoms are persistent correlate with CT scan.
== END | disposition home or self-care (01) ==
LOC: RADXRMAIN 18:52
PROVIDERS: ATTEND Family Medicine
DX: J18.9 Pneumonia, unspecified organism (principal)
CPT/HCPCS: 71046

== ENCOUNTER 2022-11-14 00:34 | Emergency (ER) | payer MEDICARE ==
--- NOTE | 2022-11-14 00:47 | ED ---
General Adult HPI - General Stated complaint: Hypertension Time Seen by Provider: 11/14/22 00:35 - History of Present Illness Initial comments: This is an 82-year-old female with a past medical history including hypertension and hyperlipidemia presents emergency department via EMS for high blood pressure. The patient stated that she has been feeling "off" with a minor headache throughout the day. The patient continued to take her blood pressure and did note that he had continuously increased at the day, worsening tonight. Because the patient had a blood pressure reading of 200/110, the patient did call EMS. On arrival, the patient was resting in bed comfortably stating that she was feeling tired without any significant headache or discomfort. The patient denied any chest pain, shortness of breath or lightheadedness. The patient did state that she had her blood pressure medications changed 2 weeks ago and has a follow-up with her pawn broker in 2 weeks. - Related Data Home Medications Medication Instructions Recorded Confirmed Aspirin EC [Ecotrin Low Dose] 81 mg PO HS 03/05/21 09/19/22 Nitroglycerin Sl Tabs [Nitrostat] 0.4 mg SUBLINGUAL Q5M PRN 10/05/21 09/19/22 carvediloL [Coreg] 3.125 mg PO BID 09/19/22 09/19/22 Previous Rx's Medication Instructions Recorded Losartan [Cozaar] 50 mg PO BID #60 tab 10/06/21 Allergies Allergy/AdvReac Type Severity Reaction Status Date / Time No Known Allergies Allergy Verified 09/21/22 12:11 Review of Systems ROS Statement: Those systems with pertinent positive or pertinent negative responses have been documented in the HPI. ROS Other: All systems not noted in ROS Statement are negative. Past Medical History Past Medical History: Coronary Artery Disease (CAD), GERD/Reflux, Hyperlipidemia, Hypertension, Osteoarthritis (OA) Additional Past Medical History / Comment(s): recheck pancreatitis, Hx. polyp in gallbladder Hx. frequent UTI-sepsis x2, "palitations", occular migraines, pancreatitis History of Any Multi-Drug Resistant Organisms: None Reported Past Surgical History: Adenoidectomy, Heart Catheterization With Stent, Tonsillectomy, Tubal Ligation Additional Past Surgical History / Comment(s): Hx.benign lump removed from Left hand and tongue yrs ago Past Anesthesia/Blood Transfusion Reactions: No Reported Reaction Date of Last Stent Placement:: 2012 Smoking Status: Never smoker - Past Family History Mother Family Medical History: Cancer, Myocardial Infarction ([place]) Additional Family Medical History / Comment(s): Mother at age 91 w/ [place] hx of uterine cancer. Father Family Medical History: Cancer Additional Family Medical History / Comment(s): Father at age 83 from prostate cancer and esophageal cancer. Brother(s) Family Medical History: Cancer Additional Family Medical History / Comment(s): half-brother at age 68 from lung cancer. Sister(s) Family Medical History: Cancer Additional Family Medical History / Comment(s): half sister that at age 69 from lung cancer. Daughter(s) History Unknown: Yes Family Medical History: CVA/TIA, Hypertension Additional Family Medical History / Comment(s): Patient has 4 daughters one daughter had stroke age 33. Other daughters have hypertension. Son(s) History Unknown: Yes Family Medical History: Hypertension Additional Family Medical History / Comment(s): Patient has 3 sons all with hypertension. General Exam Limitations: no limitations General appearance: alert, in no apparent distress Head exam: Present: atraumatic, normocephalic, normal inspection Eye exam: Present: normal appearance, PERRL Pupils: Present: normal accommodation ENT exam: Present: normal exam, normal oropharynx, mucous membranes moist Neck exam: Present: normal inspection, full ROM Respiratory exam: Present: normal lung sounds bilaterally Cardiovascular Exam: Present: regular rate, normal rhythm, normal heart sounds GI/Abdominal exam: Present: soft, normal bowel sounds Extremities exam: Present: normal inspection, full ROM Back exam: Present: normal inspection, full ROM Neurological exam: Present: alert, oriented X3, CN II-XII intact Psychiatric exam: Present: normal affect, normal mood Skin exam: Present: warm, dry Course Vital Signs 11/14/22 11/14/22 11/14/22 00:44 01:00 01:09 Temperature 98.1 F Pulse Rate 101 H 102 H 102 H Respiratory 22 18 15 Rate Blood Pressure 179/116 193/111 O2 Sat by Pulse 96 95 94 L Oximetry 11/14/22 01:56 Temperature Pulse Rate 68 Respiratory 18 Rate Blood Pressure 162/94 O2 Sat by Pulse 93 L Oximetry EKG Findings - EKG Comments: EKG Findings:: An EKG was obtained and was interpreted by myself showing a rate of 81, VA interval 184, QRS duration 94 and QTC of 412. This EKG showed a normal sinus rhythm with no ST segment elevation or depression noted. Medical Decision Making - Medical Decision Making Was pt. sent in by a medical professional or institution (RANJEET Zarate, FOLDING MACHINE OPERATOR, urgent care, hospital, or care home...) When possible be specific @ -No Did you speak to anyone other than the patient for history (EMS, parent, family, police, friend...)? What history was obtained from this source @ -No Did you review nursing and triage notes (agree or disagree)? Why? @ -I reviewed and agree with nursing and triage notes Were old charts reviewed (outside hosp., previous admission, EMS record, old EKG, old radiological studies, urgent care reports/EKG's, care home records)? Report findings @ -No old charts were reviewed Differential Diagnosis (chest pain, altered mental status, abdominal pain women, abdominal pain men, vaginal bleeding, weakness, fever, dyspnea, syncope, headache, dizziness, GI bleed, back pain, seizure, CVA, palpatations, mental health)? @ -Hypertensive emergency, ACS, headache EKG interpreted by me (3pts min.). @ -As above X-rays interpreted by me (1pt min.). @ -Chest x-ray was obtained and was interpreted by myself showing no acute process. CT interpreted by me (1pt min.). @ -None done U/S interpreted by me (1pt. min.). @ -None done What testing was considered but not performed or refused? (CT, X-rays, U/S, labs)? Why? @ -None What meds were considered but not given or refused? Why? @ -None Did you discuss the management of the patient with other professionals (professionals i.e. RANJEET Zarate, FOLDING MACHINE OPERATOR, lab, RT, psych nurse, psychotherapist social worker, robotic weld technician, teacher, photographic intelligence officer, case management director)? Give summary @ -No Was smoking cessation discussed for >3mins.? @ -No Was critical care preformed (if so, how long)? @ -No Were there social determinants of health that impacted care today? How? (Homelessness, low income, unemployed, alcoholism, drug addiction, transportation, low edu. Level, literacy, decrease access to med. care, skilled nursing, rehab)? @ -No Was there de-escalation of care discussed even if they declined (Discuss DNR or withdrawal of care, Hospice)? DNR status @ -No What co-morbidities impacted this encounter? (DM, HTN, Smoking, COPD, CAD, Cancer, CVA, ARF, Chemo, Hep., AIDS, mental health diagnosis, sleep apnea, morbid obesity)? @ -Hypertension, hyperlipidemia Was patient admitted / discharged? Hospital course, mention meds given and route, prescriptions, significant lab abnormalities, going to OR and other pertinent info. @ -The patient was seen and evaluated in emergency department. Physical exam, the patient was resting in bed without any acute distress. Patient's blood pressure was initially 230/112 per EMS however on arrival was 179/112. Laboratory workup was obtained and was within normal limits. All workup was negative. The patient was able to rest comfortably in the emergency department and reevaluation showed improving heart rate blood pressure 162/90. The patient was told to follow-up with her primary care physician and pawn broker for further workup and evaluation. The patient was not started on new medications or had any recommendations for blood pressure medications and she was told to follow-up with her primary care physician and pawn broker for this. The patient was advised report back to the emergency department she had worsening shortness of breath, difficulty in breathing or chest pain. The patient was agreeable to this and all of her questions were answered appropriate. The patient was discharged home in stable condition with her daughter. Undiagnosed new problem with uncertain prognosis? @ -No Drug Therapy requiring intensive monitoring for toxicity (Heparin, Nitro, Insulin, Cardizem)? @ -No Were any procedures done? @ -No Diagnosis/symptom? @ -Hypertensive urgency Acute, or Chronic, or Acute on Chronic? @ -Acute on chronic Uncomplicated (without systemic symptoms) or Complicated (systemic symptoms)? @ -Uncomplicated Side effects of treatment? @ -No Exacerbation, Progression, or Severe Exacerbation? @ -No Poses a threat to life or bodily function? How? (Chest pain, [place], [place], pneumonia, PE, COPD, DKA, ARF, appy, cholecystitis, CVA, Diverticulitis, Homicidal, Suicidal, threat to staff... and all critical care pts) @ -No - Lab Data Result diagrams: 11/14/22 01:00 11/14/22 01:00 Lab Results 11/14/22 11/14/22 11/14/22 Range/Units 01:00 01:00 01:00 WBC 7.2 (3.8-10.6) k/uL RBC 4.82 (3.80-5.40) m/uL Hgb 14.9 (11.4-16.0) gm/dL Hct 45.2 (34.0-46.0) % MCV 93.7 (80.0-100.0) fL MCH 30.9 (25.0-35.0) pg MCHC 33.0 (31.0-37.0) g/dL RDW 13.3 (11.5-15.5) % Plt Count 169 (150-450) k/uL MPV 7.8 Neutrophils % 52 % Lymphocytes % 36 % Monocytes % 7 % Eosinophils % 2 % Basophils % 1 % Neutrophils # 3.8 (1.3-7.7) k/uL Lymphocytes # 2.6 (1.0-4.8) k/uL Monocytes # 0.5 (0-1.0) k/uL Eosinophils # 0.1 (0-0.7) k/uL Basophils # 0.0 (0-0.2) k/uL Sodium 140 (137-145) mmol/L Potassium 3.7 (3.5-5.1) mmol/L Chloride 108 H (98-107) mmol/L Carbon Dioxide 25 (22-30) mmol/L Anion Gap 7 mmol/L BUN 14 (7-17) mg/dL Creatinine 0.67 (0.52-1.04) mg/dL Est GFR (CKD-EPI)AfAm >90 (>60 ml/min/1.73 sqM) Est GFR (CKD-EPI)NonAf 83 (>60 ml/min/1.73 sqM) Glucose 104 H (74-99) mg/dL Calcium 8.9 (8.4-10.2) mg/dL Magnesium 1.6 (1.6-2.3) mg/dL Total Bilirubin 0.9 (0.2-1.3) mg/dL AST 46 H (14-36) U/L ALT 39 H (4-34) U/L Alkaline Phosphatase 119 (38-126) U/L Troponin I <0.012 (0.000-0.034) ng/mL Total Protein 7.3 (6.3-8.2) g/dL Albumin 3.8 (3.5-5.0) g/dL Lipase 167 (23-300) U/L Disposition Clinical Impression: Hypertensive urgency Disposition: HOME SELF-CARE Condition: Stable Instructions (If sedation given, give patient instructions): Chronic Hypertension (DC) Is patient prescribed a controlled substance at d/c from ED?: No Referrals: Charly Pang DO [Primary Care Provider] - 1-2 days Time of Disposition: 01:50
[2022-11-14 01:11] LABS: Basophils % (A) 1 %; Eosinophils # (A) 0.1 k/uL (0-0.7); Eosinophils % (A) 2 %; HCT 45.2 % (34.0-46.0); HGB 14.9 gm/dL (11.4-16.0); Lymphocytes # (A) 2.6 k/uL (1.0-4.8); Lymphocytes % (A) 36 %; MCH 30.9 pg (25.0-35.0); MCV 93.7 fL (80.0-100.0); Mean Platelet Volume 7.8; Monocytes # (A) 0.5 k/uL (0-1.0); Monocytes % (A) 7 %; Neutrophils # (A) 3.8 k/uL (1.3-7.7); Neutrophils % (A) 52 %; Platelet Count 169 k/uL (150-450); RBC 4.82 m/uL (3.80-5.40); RDW 13.3 % (11.5-15.5); WBC 7.2 k/uL (3.8-10.6)
[2022-11-14 01:12] VITALS: TEMP 98.1
--- NOTE | 2022-11-14 01:27 | XR ---
EXAM: XR Chest, 2 Views CLINICAL HISTORY: ITS.REASON XR Reason: HTN, CP TECHNIQUE: Frontal and lateral views of the chest. COMPARISON: No relevant prior studies available. FINDINGS: Lungs: Unremarkable. No consolidation. Pleural space: Unremarkable. No pneumothorax. Heart: Enlarged heart. Mediastinum: Unremarkable. Bones/joints: Unremarkable. IMPRESSION: No acute findings in the chest.
[2022-11-14 01:36] LABS: ALT 39 U/L (4-34); AST 46 U/L (14-36); African American GFR (CKD) >90 (>60 ml/min/1.73 sqM); Albumin 3.8 g/dL (3.5-5.0); Alkaline Phosphatase 119 U/L (38-126); Anion Gap 7 mmol/L; Blood Urea Nitrogen 14 mg/dL (7-17); Calcium 8.9 mg/dL (8.4-10.2); Carbon Dioxide 25 mmol/L (22-30); Chloride 108 mmol/L (98-107); Glucose 104 mg/dL (74-99); Lipase 167 U/L (23-300); Magnesium 1.6 mg/dL (1.6-2.3); Non-African American GFR(CKD) 83 (>60 ml/min/1.73 sqM); Potassium 3.7 mmol/L (3.5-5.1); Sodium 140 mmol/L (137-145); Total Bilirubin 0.9 mg/dL (0.2-1.3); Total Protein 7.3 g/dL (6.3-8.2)
[2022-11-14 01:57] VITALS: BP 162/94; PULSE 68; RESP 18
== END 2022-11-14 02:36 | disposition home or self-care (01) ==
LOC: EC 00:34
DX: I16.0 Hypertensive urgency (principal); I25.10 Atherosclerotic heart disease of native coronary artery without angina pectoris; Z79.82 Long term (current) use of aspirin
CPT/HCPCS: 36415; 71046; 80053; 83690; 83735; 84484; 85025; 93005; 99284

== ENCOUNTER → 2022-11-22 | Outpatient (CLI) | payer MEDICARE ==
--- NOTE | 2022-11-22 12:31 | US ---
EXAMINATION TYPE: US liver DATE OF EXAM: 11/22/2022 COMPARISON: US CLINICAL INDICATION: Female, 82 years old with history of K74.69 CIRRHOSIS OF LIVER; Cirrhosis TECHNIQUE: Multiple sonographic images of the right upper quadrant are obtained. FINDINGS: EXAM MEASUREMENTS: Liver Length: 12.8 cm Gallbladder Wall: 0.2 cm CBD: 0.8 cm Right Kidney: 9.4 x 4.1 x 3.9 cm Pancreas: wnl Liver: Coarse echotexture, lobulated contour, similar findings to prior Gallbladder: wnl Evidence for sonographic Bernal's sign: No CBD: wnl Right Kidney: Cortical thinning, lower pole gassed out IMPRESSION: Hepatic cirrhosis. No suspicious mass visualized.
== END | disposition home or self-care (01) ==
LOC: RADUSWWP 08:42
PROVIDERS: ATTEND Internal Medicine Gastroenterology
DX: K74.69 Other cirrhosis of liver (principal)
CPT/HCPCS: 76705

== ENCOUNTER → 2022-12-15 | Outpatient (CLI) | payer MEDICARE ==
[2022-12-15 22:13] LABS: African American GFR (CKD) 75.8 (60.0-200.0); BUN/Creat Ratio 17.08 Ratio (12.00-20.00); Blood Urea Nitrogen 14.4 mg/dL (9.0-27.0); Calcium 9.3 mg/dL (8.7-10.3); Carbon Dioxide 27.5 mmol/L (20.0-27.5); Chloride 104 mmol/L (96-109); Glucose 90 mg/dL (70-110); Non-African American GFR(CKD) 65.4 (60.0-200.0); Potassium 4.5 mmol/L (3.5-5.5); Sodium 142 mmol/L (135-145)
== END | disposition home or self-care (01) ==
LOC: LABWHC1 12:16
PROVIDERS: ATTEND Nurse Practitioner Adult Health
DX: I10 Essential (primary) hypertension (principal)
CPT/HCPCS: 36415; 80048; 83735; 84443

== ENCOUNTER → 2023-02-17 | Outpatient (CLI) | payer MEDICARE ==
[2023-02-18 02:17] LABS: Blood Urea Nitrogen 15.4 mg/dL (9.0-27.0); Chloride 107 mmol/L (96-109); Glucose 91 mg/dL (70-110); Potassium 4.4 mmol/L (3.5-5.5); Sodium 141 mmol/L (135-145)
[2023-02-18 02:18] LABS: ALT 37 U/L (8-44); AST 48 U/L (13-35); Albumin 3.6 d/dL (3.8-4.9); Albumin/Globulin Ratio 1.24 Ratio (1.60-3.17); Alkaline Phosphatase 114 U/L (41-126); Carbon Dioxide 24.1 mmol/L (21.6-31.8); Globulin 2.9 d/dL (1.6-3.3); Total Bilirubin 0.4 mg/dL (0.3-1.2); Total Protein 6.5 d/dL (6.2-8.2)
== END | disposition home or self-care (01) ==
LOC: LABWHC1 13:12
PROVIDERS: ATTEND Internal Medicine Clinical Cardiac Electrophysiology
DX: I35.0 Nonrheumatic aortic (valve) stenosis (principal); I25.10 Atherosclerotic heart disease of native coronary artery without angina pectoris; I49.5 Sick sinus syndrome
CPT/HCPCS: 36415; 80053

== ENCOUNTER → 2023-06-07 | Outpatient (CLI) | payer MEDICARE ==
--- NOTE | 2023-06-07 15:31 | US ---
EXAMINATION TYPE: US liver DATE OF EXAM: 06/07/2023 COMPARISON: NONE CLINICAL INDICATION: Female, 83 years old with history of K74.69 OTHER CIRRHOSIS OF LIVER; No symptom s, Cirrhosis TECHNIQUE: Multiple sonographic images of the right upper quadrant are obtained. FINDINGS: EXAM MEASUREMENTS: Liver Length: 13.6 cm Gallbladder Wall: 0.2 cm CBD: 0.8 cm Right Kidney: 9.8 x 4.2 x 4.9 cm STATISTICAL MACHINE MECHANIC NOTES:Bowel gas limits study Pancreas: wnl Liver: nodular contour Gallbladder: wnl Evidence for sonographic Bernal's sign: no CBD: Normal for age Right Kidney: wnl IMPRESSION: 1. Mildly nodular contour to the liver. Some developing cirrhosis can be considered. Correlate with t jack laboratory results.
== END | disposition home or self-care (01) ==
LOC: RADUSWWP 08:41
PROVIDERS: ATTEND Internal Medicine Gastroenterology
DX: K74.69 Other cirrhosis of liver (principal)
CPT/HCPCS: 76705

== ENCOUNTER → 2023-07-11 | Outpatient (CLI) | payer MEDICARE ==
--- NOTE | 2023-07-11 11:30 | XR ---
EXAMINATION TYPE: XR chest 2V DATE OF EXAM: 07/11/2023 COMPARISON: NONE TECHNIQUE: PA and lateral views submitted. HISTORY: cough FINDINGS: The lungs are clear and there is no pneumothorax, pleural effusion, or focal pneumonia. Heart size normal and no overt failure. Osseous structures demonstrate hypertrophic and degenerative changes of the spine. IMPRESSION: 1. No acute process.
== END | disposition home or self-care (01) ==
LOC: RADXRMAIN 09:33
PROVIDERS: ATTEND Family Medicine
DX: R05.9 Cough, unspecified (principal)
CPT/HCPCS: 71046

== ENCOUNTER → 2023-11-07 | Outpatient (CLI) | payer MEDICARE ==
--- NOTE | 2023-11-08 08:17 | XR ---
EXAMINATION TYPE: XR foot complete LT DATE OF EXAM: 11/07/2023 4:28 PM CLINICAL INDICATION:Female, 83 years old with history of LEFT FOOT PAIN; [facility] COMPARISON: 01/19/2021 TECHNIQUE: XR foot complete LT examined in the AP, oblique, and lateral projections. FINDINGS: No evidence of any acute osseous pathology. No evidence of soft tissue swelling. Joints are preserve d. Scattered multifocal joint space narrowing and osteophyte formation throughout the foot. Calcaneal plantar spurring and calcaneal Achilles enthesophyte formation are present. IMPRESSION: 1. No evidence of acute fracture. 2. Multifocal degeneration changes throughout the joints of the foot.
== END | disposition home or self-care (01) ==
LOC: RADXRMAIN 16:06
PROVIDERS: ATTEND Family Medicine
DX: M79.672 Pain in left foot (principal)

== ENCOUNTER → 2024-01-08 | Outpatient (CLI) | payer MEDICARE ==
--- NOTE | 2024-01-08 08:18 | US ---
EXAMINATION TYPE: US liver DATE OF EXAM: 01/08/2024 COMPARISON: 06/07/2023 CLINICAL INDICATION: Female, 84 years old with history of K74.69 CIRRHOSIS OF LIVER; Mildly nodular l iver TECHNIQUE: Multiple sonographic images of the right upper quadrant are obtained. FINDINGS: EXAM MEASUREMENTS: Liver Length: 12.0 cm Gallbladder Wall: 0.3 cm CBD: 0.5 cm Right Kidney: 9.5 x 4.6 x 5.0 cm Pancreas: wnl Liver: Increased attenuation with nodular contour. Gallbladder: wnl Evidence for sonographic Bernal's sign: No CBD: wnl Right Kidney: Lower pole obscured by bowel gas, WNL as visualized IMPRESSION: 1. Mildly nodular liver contour compatible cirrhosis. No evidence for mass. 2. No acute process.
== END | disposition home or self-care (01) ==
LOC: RADUSWWP 06:54
PROVIDERS: ATTEND Internal Medicine Gastroenterology
DX: K74.60 Unspecified cirrhosis of liver (principal)
CPT/HCPCS: 76705

== ENCOUNTER → 2024-01-18 | Outpatient (CLI) | payer MEDICARE ==
--- NOTE | 2024-01-18 13:03 | BD ---
EXAMINATION TYPE: Axial Bone Density DATE OF EXAM: 01/18/2024 CLINICAL HISTORY: 84 years old Female. ICD-10 CODE: M54.30 SCIATICA, UNSPECIFIED SIDE Height: 60in Weight: 163lb FRAX RISK QUESTIONS: Family History (Parent hip fracture): yes History of Fracture in Adulthood: yes Secondary Osteoporosis: RISK FACTORS HISTORY OF: History of Wrist Fracture: lt wrist When: age 74 MEDICATIONS: EXAM MEASUREMENTS: Bone mineral densitometry was performed using the [employer] System. Bone mineral density as measured about the Lumbar spine is: ----- L1-L4(G/cm2): 0.928 T Score Values are as follows: ----- L1: -2.2 ----- L2: -2.5 ----- L3: -2.4 ----- L4: -1.6 ----- L1-L4: -2.1 Z Score Values are as follows: ----- L1: -0.7 ----- L2: -0.9 ----- L3: -0.8 ----- L4: 0.0 ----- L1-L4: -0.5 Bone mineral density has: Increased 3.7% since study of: 06-22-20 Bone mineral density about the R hip (g/cm2): 0.757 Bone mineral density about the L hip (g/cm2): 0.712 T Score values are as follows: -----R Neck: -2.4 -----L Neck: -2.2 -----R Total: -2.0 -----L Total: -2.3 Z Score values are as follows: -----R Neck: -0.3 -----L Neck: -0.2 -----R Total: -0.1 -----L Total: -0.4 Bone mineral density has: Decreased -6% since study of: 06-22-20 FRAX%s: The graph provided illustrates a 42.6% chance for a major osteoporotic fx and a 29% chance fo r the hips probability for fx in 10 years time. IMPRESSION: Osteopenia (T Score between -2.5 and -1). There is slightly increased risk of fracture and the patient may be considered for treatment. Re-Screen 2-5 years. NOTE: T-SCORE=SD OF THE YOUNG ADULT MEAN.
== END | disposition home or self-care (01) ==
LOC: RADBDWWP 01-17 10:23
PROVIDERS: ATTEND Family Medicine
DX: M81.0 Age-related osteoporosis without current pathological fracture (principal); M85.89 Other specified disorders of bone density and structure, multiple sites
CPT/HCPCS: 77080

== ENCOUNTER → 2024-07-08 | Outpatient (CLI) | payer MEDICARE ==
--- NOTE | 2024-07-08 08:51 | US ---
EXAMINATION TYPE: US liver DATE OF EXAM: 07/08/2024 COMPARISON: US 2023 CLINICAL INDICATION: Female, 84 years old with history of K74.69 OTHER CIRRHOSIS OF LIVER; TECHNIQUE: Grayscale and color Doppler imaging of the right upper quadrant was performed. FINDINGS: EXAM MEASUREMENTS: Liver Length: 11.4 cm Gallbladder Wall: 0.2 cm CBD: 0.6 cm Right Kidney: 9.3 x 4.5 x 3.9 cm Pancreas: visualized portions wnl, limited by overlying midline bowel gas Liver: course echotexture Gallbladder: wnl Evidence for sonographic Bernal's sign: no CBD: borderline dilated Right Kidney: visualized portions wnl, inferior pole obscured by overlying bowel gas IMPRESSION: 1. Coarsened echotexture to liver suggestive of hepatocellular disease. 2. No evidence for acute process. [facility] Ulises Muñoz, , 07/08/2024 8:48 AM
== END | disposition home or self-care (01) ==
LOC: RADUSWWP 06:59
PROVIDERS: ATTEND Internal Medicine Gastroenterology
DX: K74.69 Other cirrhosis of liver (principal)
CPT/HCPCS: 76705

== ENCOUNTER → 2024-07-20 | Outpatient (CLI) | payer MEDICARE ==
[2024-07-20 13:34] LABS: Basophils # (A) 0.05 X 10*3/uL (0.00-0.10); Basophils % (A) 0.9 %; Eosinophils # (A) 0.26 X 10*3/uL (0.04-0.35); Eosinophils % (A) 4.8 %; HCT 44.2 % (37.2-46.3); HGB 14.1 g/dL (12.0-15.0); Lymphocytes # (A) 2.77 X 10*3/uL (0.90-5.00); MCHC 31.9 g/dL (32.0-37.0); Mean Platelet Volume 10.6 FL (9.5-12.2); Monocytes % (A) 12.9 %; NRBC Per 100 WBC 0 X 10*3/uL (0.00-0.01); Neutrophils # (A) 1.62 X 10*3/uL (1.80-7.70); Neutrophils % (A) 29.8 %; Platelet Count 189 X 10*3/uL (140-440); RDW 13.8 % (11.5-14.5); WBC 5.43 X 10*3/uL (4.50-10.00)
[2024-07-20 13:51] LABS: ALT 28 U/L (8-44); AST 40 U/L (13-35); Albumin 3.6 g/dL (3.8-4.9); Albumin/Globulin Ratio 1.24 Ratio (1.60-3.17); Alkaline Phosphatase 114 U/L (41-126); BUN/Creat Ratio 21.12 Ratio (12.00-20.00); Blood Urea Nitrogen 16.9 mg/dL (9.0-27.0); Calcium 8.9 mg/dL (8.7-10.3); Carbon Dioxide 26.3 mmol/L (21.6-31.8); Chloride 106 mmol/L (96-109); Chol/HDL Ratio 2.42 Ratio; Globulin 2.9 g/dL (1.6-3.3); Glucose 91 mg/dL (70-110); LDL Cholesterol,Calculated 48.6 mg/dL (0.0-131.0); Magnesium 1.8 mg/dL (1.5-2.4); Potassium 4.4 mmol/L (3.5-5.5); Sodium 141 mmol/L (135-145); Total Bilirubin 0.6 mg/dL (0.3-1.2); Total Protein 6.5 g/dL (6.2-8.2)
== END | disposition home or self-care (01) ==
LOC: LABWHC1 09:12
PROVIDERS: ATTEND Internal Medicine Gastroenterology
DX: I10 Essential (primary) hypertension (principal); E78.5 Hyperlipidemia, unspecified; K74.69 Other cirrhosis of liver
CPT/HCPCS: 36415; 80053; 80061; 83735; 84443; 85025

== ENCOUNTER 2024-10-18 21:44 | Observation (INO) | payer MEDICARE ==
[2024-10-18] MEDS: NITROGLYCERIN SL TABS 0.4 MG TAB SUBLINGUAL STA (21:51)
[2024-10-18] MEDS: SODIUM CHLORIDE 0.9% 1,000 ML IV STA (22:04)
[2024-10-18] MEDS: ASPIRIN 81 MG PO STA (22:06)
--- NOTE | 2024-10-18 22:08 | ED ---
General Adult HPI - General Chief complaint: Chest Pain Stated complaint: chest tightness and high blood pressure Time Seen by Provider: 10/18/24 21:55 Source: patient, RN notes reviewed, old records reviewed Mode of arrival: wheelchair Limitations: no limitations - History of Present Illness Initial comments: Patient is a 84-year-old female with past medical history remarkable for your CAD with cardiac stent of the LAD in 2013, hypertension, hyperlipidemia, GERD who presents to the emergency department with 3-day history of chest tightness. Also has associated nausea and vomiting that is intermittent. Chest tightness is also intermittent. States it is in the middle and does not radiate. Intermittently will have nausea throughout the day as well. Does not believe it is correlated with severity of chest pain. States she occasionally feels short of breath as well but is unknown if there is any association with the chest pain. Denies any diaphoresis. [place] a mild headache throughout the day today as well and her face felt flushed which is what prompted her to check her blood pressure prior to arrival and it was elevated with systolics over 200. Presents with her daughter over concern for cardiac issues. States she is compliant with medications. Is not on blood thinners. Does take baby aspirin, as well as blood pressure meds but did not take her evening medications. Presents for further evaluation at this time. Follows up with Dr. Tyler of cardiology in the office. States the pain is only about a 4 out of 10 at this time. Has a very mild headache. No recent coughing, congestion. No fevers. No sick cont acts.Patient is currently being treated for UTI on Keflex. - Related Data Home Medications Medication Instructions Recorded Confirmed Aspirin EC [Ecotrin Low Dose] 81 mg PO HS 03/05/21 09/19/22 Nitroglycerin Sl Tabs [Nitrostat] 0.4 mg SUBLINGUAL Q5M PRN 10/05/21 09/19/22 carvediloL [Coreg] 3.125 mg PO BID 09/19/22 09/19/22 Previous Rx's Medication Instructions Recorded Losartan [Cozaar] 50 mg PO BID #60 tab 10/06/21 Allergies Allergy/AdvReac Type Severity Reaction Status Date / Time No Known Allergies Allergy Verified 10/18/24 21:49 Review of Systems ROS Statement: Those systems with pertinent positive or pertinent negative responses have been documented in the HPI. Review of Systems: CONST: Denies fever EYES: Denies blurry vision ENT: Denies nasal congestion C/V: Endorses chest pain RESP: Denies shortness of breath GI: Denies abdominal pain : Denies dysuria SKIN: Denies rash. MSK: Denies joint pain. NEURO: Denies headache ROS Other: All systems not noted in ROS Statement are negative. Past Medical History Past Medical History: Coronary Artery Disease (CAD), GERD/Reflux, Hyperlipidemia, Hypertension, Osteoarthritis (OA) Additional Past Medical History / Comment(s): recheck pancreatitis, Hx. polyp in gallbladder Hx. frequent UTI-sepsis x2, "palitations", occular migraines, pancreatitis History of Any Multi-Drug Resistant Organisms: None Reported Past Surgical History: Adenoidectomy, Heart Catheterization With Stent, Tonsillectomy, Tubal Ligation Additional Past Surgical History / Comment(s): Hx.benign lump removed from Left hand and tongue yrs ago Past Anesthesia/Blood Transfusion Reactions: No Reported Reaction Date of Last Stent Placement:: 2012 Past Psychological History: No Psychological Hx Reported Smoking Status: Never smoker - Past Family History Mother Family Medical History: Cancer, Myocardial Infarction ([place]) Additional Family Medical History / Comment(s): Mother at age 91 w/ [place] hx of uterine cancer. Father Family Medical History: Cancer Additional Family Medical History / Comment(s): Father at age 83 from prostate cancer and esophageal cancer. Brother(s) Family Medical History: Cancer Additional Family Medical History / Comment(s): half-brother at age 68 from lung cancer. Sister(s) Family Medical History: Cancer Additional Family Medical History / Comment(s): half sister that at age 69 from lung cancer. Daughter(s) History Unknown: Yes Family Medical History: CVA/TIA, Hypertension Additional Family Medical History / Comment(s): Patient has 4 daughters one daughter had stroke age 33. Other daughters have hypertension. Son(s) History Unknown: Yes Family Medical History: Hypertension Additional Family Medical History / Comment(s): Patient has 3 sons all with hypertension. General Exam - General Exam Comments Initial Comments: General: Appears in no acute distress. HEAD: Normal with no signs of head trauma. EYES: PERRLA, EOMI, conjunctiva normal, no discharge. ENT: Hearing grossly intact, normal oropharynx. RESPIRATORY: Clear breath sounds bilaterally. No wheezes, rales, or rhonchi. C/V: Regular rate and rhythm. S1 and S2 auscultated, no edema, peripheral pulses 2+ and intact throughout ABD: Abd is soft, nontender, nondistended EXT: Normal range of motion, no obvious deformity SKIN: No rashes or lesions observed on exposed skin. NEURO: Alert and oriented x 4. Limitations: no limitations Course Vital Signs 10/18/24 10/18/24 10/18/24 21:47 21:56 21:58 Temperature 97.9 F Pulse Rate 95 Respiratory 18 Rate Blood Pressure 208/130 224/134 209/114 O2 Sat by Pulse 98 Oximetry 10/18/24 10/18/24 10/18/24 22:00 22:11 22:35 Temperature Pulse Rate 77 Respiratory 18 Rate Blood Pressure 201/105 126/83 174/87 O2 Sat by Pulse 96 Oximetry 10/19/24 00:39 Temperature Pulse Rate 66 Respiratory 18 Rate Blood Pressure 166/88 O2 Sat by Pulse 97 Oximetry Medical Decision Making - Medical Decision Making Was pt. sent in by a medical professional or institution (, PA, FLIGHT SERVICE AGENT, urgent care, hospital, or assisted...) When possible be specific @ -No Did you speak to anyone other than the patient for history (EMS, parent, family, police, friend...)? What history was obtained from this source @ -No Did you review nursing and triage notes (agree or disagree)? Why? @ -I reviewed and agree with nursing and triage notes Were old charts reviewed (outside hosp., previous admission, EMS record, old EKG, old radiological studies, urgent care reports/EKG's, assisted records)? Report findings @ -Reviewed prior EKGs from October 2022. When compared with today's EKG, no acute change. Differential Diagnosis (chest pain, altered mental status, abdominal pain women, abdominal pain men, vaginal bleeding, weakness, fever, dyspnea, syncope, headache, dizziness, GI bleed, back pain, seizure, CVA, palpatations, mental health, musculoskeletal)? @ -Differential Chest Pain: Stable Angina, Unstable Angina, STEMI, NSTEMI Aortic Dissection, Pneumothorax, Musculoskeletal, Esophageal Spasm GERD, Cholecystitis, Pancreatitis, Zoster, thi s is not meant to be an all-inclusive list. EKG interpreted by me (3pts min.). @ -As above X-rays interpreted by me (1pt min.). @ -Chest x-ray reveals no obvious acute cardiopulmonary process. CT interpreted by me (1pt min.). @ -None done U/S interpreted by me (1pt. min.). @ -None done What testing was considered but not performed or refused? (CT, X-rays, U/S, labs)? Why? @ -None What meds were considered but not given or refused? Why? @ -None Did you discuss the management of the patient with other professionals (professionals i.e. , PA, FLIGHT SERVICE AGENT, lab, RT, psych nurse, addiction social worker, maintenance mechanic elevators, teacher, public safety officer, employment case manager)? Give summary @ -No Was smoking cessation discussed for >3mins.? @ -No Was critical care preformed (if so, how long)? @ -No Were there social determinants of health that impacted care today? How? (Homelessness, low income, unemployed, alcoholism, drug addiction, transportation, low edu. Level, literacy, decrease access to med. care, senior care, rehab)? @ -No Was there de-escalation of care discussed even if they declined (Discuss DNR or withdrawal of care, Hospice)? DNR status @ -No What co-morbidities impacted this encounter? (DM, HTN, Smoking, COPD, CAD, Cancer, CVA, ARF, Chemo, Hep., AIDS, mental health diagnosis, sleep apnea, morbid obesity)? @ -Hypertension, CAD Was patient admitted / discharged? Hospital course, mention meds given and route , prescriptions, significant lab abnormalities, going to OR and other pertinent info. @ -Based on the patient's presentation and physical exam, presents with chest pain for 3 days with hypertension. Unknown if patient has been hypertensive for multiple days as well. Patient will be symptomatically treated with nitro to be given, as well as 324 mg of aspirin, and 1 L fluid bolus. We will obtain cardiac workup. Patient was in agreement this plan. EKG shows no signs of acute ischemia.Chest x-ray shows no obvious acute cardiopulmonary process. Patient's laboratory studies remarkable for und etectable troponin. Minimal elevation in LFTs and alk phos, which is chronic based on prior laboratory studies. Urinalysis unremarkable. 2 nitroglycerin tablets resolve the patient's pain and blood pressures improved. Nitro placed was applied. I discussed the negative workup for the patient. S he will be placed in cardiac observation with cardiology consult and echo ordered. Will trend the troponin. She was in agreement this plan. Patient is currently being treated for her UTI and Keflex. I will switch her to Rocephin while she is here and we will obtain repeat urinalysis. She was in agreement this plan. I spoke with the admitting provider, GRAYSON Alves of [facility] who accepted the admis radha. Undiagnosed new problem with uncertain prognosis? @ -No Drug Therapy requiring intensive monitoring for toxicity (Heparin, Nitro, Insulin, Cardizem)? @ -No Were any procedures done? @ -No Diagnosis/symptom? @ -Chest pain, hypertensive urgency, UTI Acute, or Chronic, or Acute on Chronic? @ -Acute Uncomplicated (without systemic symptoms) or Complicated (systemic symptoms)? @ -Complicated Side effects of treatment? @ -None Exacerbation, Progression, or Severe Exacerbation] @ -No Poses a threat to life or bodily function? @ -Potentially, yes - Lab Data Result diagrams: 10/18/24 22:01 10/18/24 22:01 Lab Results 10/18/24 10/18/24 10/18/24 Range/Units 22:01 22:01 22:01 WBC 7.5 (3.8-10.6) k/uL RBC 5.21 (3.80-5.40) m/uL Hgb 15.3 (11.4-16.0) gm/dL Hct 46.7 H (34.0-46.0) % MCV 89.7 (80.0-100.0) fL MCH 29.4 (25.0-35.0) pg MCHC 32.8 (31.0-37.0) g/dL RDW 13.4 (11.5-15.5) % Plt Count 164 (150-450) k/uL MPV 7.5 Neutrophils % 40 % Lymphocytes % 44 % Monocytes % 8 % Eosinophils % 4 % Basophils % 1 % Neutrophils # 3.0 (1.3-7.7) k/uL Lymphocytes # 3.3 (1.0-4.8) k/uL Monocytes # 0.6 (0-1.0) k/uL Eosinophils # 0.3 (0-0.7) k/uL Basophils # 0.1 (0-0.2) k/uL PT 11.7 (10.0-12.5) sec INR 1.1 (<1.2) APTT 25.6 (22.0-30.0) sec Sodium 139 (137-145) mmol/L Potassium 4.4 (3.5-5.1) mmol/L Chloride 105 (98-107) mmol/L Carbon Dioxide 24 (22-30) mmol/L Anion Gap 10 mmol/L BUN 16 (7-17) mg/dL Creatinine 0.63 (0.52-1.04) mg/dL Est GFR (CKD-EPI)AfAm >90 (>60 ml/min/1.73 sqM) Est GFR (CKD-EPI)NonAf 84 (>60 ml/min/1.73 sqM) Glucose 116 H (74-99) mg/dL Calcium 9.3 (8.4-10.2) mg/dL Magnesium 1.9 (1.6-2.3) mg/dL Total Bilirubin 0.6 (0.2-1.3) mg/dL AST 81 H (14-36) U/L ALT 56 H (4-34) U/L Alkaline Phosphatase 164 H (38-126) U/L Troponin I (0.000-0.034) ng/mL NT-Pro-B Natriuret Pep 679 pg/mL Total Protein 7.5 (6.3-8.2) g/dL Albumin 4.0 (3.5-5.0) g/dL Lipase 249 (23-300) U/L 10/18/24 Range/Units 22:01 WBC (3.8-10.6) k/uL RBC (3.80-5.40) m/uL Hgb (11.4-16.0) gm/dL Hct (34.0-46.0) % MCV (80.0-100.0) fL MCH (25.0-35.0) pg MCHC (31.0-37.0) g/dL RDW (11.5-15.5) % Plt Count (150-450) k/uL MPV Neutrophils % % Lymphocytes % % Monocytes % % Eosinophils % % Basophils % % Neutrophils # (1.3-7.7) k/uL Lymphocytes # (1.0-4.8) k/uL Monocytes # (0-1.0) k/uL Eosinophils # (0-0.7) k/uL Basophils # (0-0.2) k/uL PT (10.0-12.5) sec INR (<1.2) APTT (22.0-30.0) sec Sodium (137-145) mmol/L Potassium (3.5-5.1) mmol/L Chloride (98-107) mmol/L Carbon Dioxide (22-30) mmol/L Anion Gap mmol/L BUN (7-17) mg/dL Creatinine (0.52-1.04) mg/dL Est GFR (CKD-EPI)AfAm (>60 ml/min/1.73 sqM) Est GFR (CKD-EPI)NonAf (>60 ml/min/1.73 sqM) Glucose (74-99) mg/dL Calcium (8.4-10.2) mg/dL Magnesium (1.6-2.3) mg/dL Total Bilirubin (0.2-1.3) mg/dL AST (14-36) U/L ALT (4-34) U/L Alkaline Phosphatase (38-126) U/L Troponin I <0.012 (0.000-0.034) ng/mL NT-Pro-B Natriuret Pep pg/mL Total Protein (6.3-8.2) g/dL Albumin (3.5-5.0) g/dL Lipase (23-300) U/L - EKG Data -: EKG Interpreted by Me EKG Comments: 12-lead Electrocardiogram Interpretation Note EKG was reviewed and interpreted by myself. 12-lead ECG performed at 2156 is int erpreted by me as revealing sinus tachycardia at a rate of 111 beats per minute. [place] is normal. VT interval is 166 ms, QRS duration is 86 ms, QTc is [address] segment depression in the precordially leads. Compared with EKG from October 2022 when this was present at that time as well.. There were no obvious acute ST or T wave abnormalities to suggest myocardial ischemia or injury. R wave progression across the precordium was satisfactory. By my interpretation this EKG is non-diagnostic for acute ischemia. Disposition Clinical Impression: UTI (urinary tract infection), Hypertensive urgency, Chest pain Disposition: ADMITTED IP TO THIS HOSP Condition: Stable Time of Disposition: 23:00
[2024-10-18 22:12] LABS: Basophils # (A) 0.1 k/uL (0-0.2); Basophils % (A) 1 %; Eosinophils # (A) 0.3 k/uL (0-0.7); Eosinophils % (A) 4 %; HCT 46.7 % (34.0-46.0); HGB 15.3 gm/dL (11.4-16.0); Lymphocytes # (A) 3.3 k/uL (1.0-4.8); Lymphocytes % (A) 44 %; MCH 29.4 pg (25.0-35.0); MCHC 32.8 g/dL (31.0-37.0); MCV 89.7 fL (80.0-100.0); Mean Platelet Volume 7.5; Monocytes # (A) 0.6 k/uL (0-1.0); Monocytes % (A) 8 %; Neutrophils % (A) 40 %; Platelet Count 164 k/uL (150-450); RBC 5.21 m/uL (3.80-5.40); RDW 13.4 % (11.5-15.5); WBC 7.5 k/uL (3.8-10.6)
[2024-10-18 22:25] LABS: ALT 56 U/L (4-34); AST 81 U/L (14-36); African American GFR (CKD) >90 (>60 ml/min/1.73 sqM); Alkaline Phosphatase 164 U/L (38-126); Anion Gap 10 mmol/L; Blood Urea Nitrogen 16 mg/dL (7-17); Calcium 9.3 mg/dL (8.4-10.2); Carbon Dioxide 24 mmol/L (22-30); Chloride 105 mmol/L (98-107); Glucose 116 mg/dL (74-99); INR 1.1 (<1.2); Lipase 249 U/L (23-300); Magnesium 1.9 mg/dL (1.6-2.3); Non-African American GFR(CKD) 84 (>60 ml/min/1.73 sqM); Partial Thromboplastin Time 25.6 sec (22.0-30.0); Potassium 4.4 mmol/L (3.5-5.1); Prothrombin Time 11.7 sec (10.0-12.5); Sodium 139 mmol/L (137-145); Total Bilirubin 0.6 mg/dL (0.2-1.3); Total Protein 7.5 g/dL (6.3-8.2)
[2024-10-18 22:34] LABS: NT-Pro-B-Type Natriuretic Pept 679 pg/mL
[2024-10-18] MEDS: NITROGLYCERIN OINT 1 INCH/GM PACKET TOPICAL SCH (22:56)
[2024-10-18] MEDS ORDERED: ONDANSETRON 4 MG/2 ML VIAL IVP PRN (23:01)
[2024-10-18] MEDS ORDERED: ACETAMINOPHEN TAB 325 MG TAB PO PRN (23:01)
[2024-10-18] MEDS ORDERED: NALOXONE 0.4 MG/ML 1 ML VIAL IV PRN (23:01)
[2024-10-18] MEDS: ONDANSETRON 4 MG/2 ML VIAL IVP STA (23:48)
[2024-10-18] MEDS: carvediloL 3.125 MG TAB PO STA (23:58)
[2024-10-18 23:59] LABS: Appearance,Urine Clear (Clear); Bilirubin,Urine Negative (Negative); Blood,Urine Negative (Negative); Color,Urine Colorless; Glucose,Urine (UA) Negative (Negative); Ketones,Urine Negative (Negative); Leukocyte Esterase,Urine Negative (Negative); Nitrite,Urine Negative (Negative); Protein,Urine Negative (Negative); Specific Gravity,Urine 1.005 (1.001-1.035); Urobilinogen,Urine <2.0 mg/dL (<2.0)
[2024-10-18] MEDS: SODIUM CHLORIDE 0.9% 1,000 ML IV SCH (23:59)
[2024-10-18] MEDS: VALSARTAN 160 MG TAB PO STA (23:59)
--- NOTE | 2024-10-19 00:07 | XR ---
EXAM: XR Chest, 2 Views CLINICAL HISTORY: ITS.REASON XR Reason: Chest Pain TECHNIQUE: Frontal and lateral views of the chest. COMPARISON: Chest radiograph on 07/11/2023 FINDINGS: Hardware: None. Lungs/pleura: Normal. No focal consolidation. No pleural effusion or pneumothorax. Heart/mediastinum: Atherosclerotic changes of the aorta. No cardiomegaly. Soft tissues: Unremarkable. Bones: No acute fracture. Upper abdomen: Normal. IMPRESSION: No acute disease identified.
[2024-10-19 02:28] LABS: Basophils % (A) 1 %; Eosinophils # (A) 0.2 k/uL (0-0.7); Eosinophils % (A) 3 %; HCT 44.1 % (34.0-46.0); HGB 14.2 gm/dL (11.4-16.0); Lymphocytes # (A) 2.3 k/uL (1.0-4.8); Lymphocytes % (A) 34 %; MCH 29.6 pg (25.0-35.0); MCHC 32.2 g/dL (31.0-37.0); Mean Platelet Volume 8.6; Monocytes # (A) 0.6 k/uL (0-1.0); Monocytes % (A) 9 %; Neutrophils # (A) 3.5 k/uL (1.3-7.7); Neutrophils % (A) 51 %; Platelet Count 180 k/uL (150-450); RDW 13.5 % (11.5-15.5); WBC 6.9 k/uL (3.8-10.6)
[2024-10-19 02:42] LABS: ALT 53 U/L (4-34); AST 68 U/L (14-36); African American GFR (CKD) >90 (>60 ml/min/1.73 sqM); Albumin 3.5 g/dL (3.5-5.0); Alkaline Phosphatase 147 U/L (38-126); Anion Gap 6 mmol/L; Blood Urea Nitrogen 16 mg/dL (7-17); Calcium 8.8 mg/dL (8.4-10.2); Carbon Dioxide 26 mmol/L (22-30); Chloride 107 mmol/L (98-107); Glucose 108 mg/dL (74-99); Non-African American GFR(CKD) 83 (>60 ml/min/1.73 sqM); Potassium 4.3 mmol/L (3.5-5.1); Sodium 139 mmol/L (137-145); Total Bilirubin 0.5 mg/dL (0.2-1.3); Total Protein 6.7 g/dL (6.3-8.2)
[2024-10-19] MEDS: HEPARIN SODIUM,PORCINE 5,000 UNIT/ML 1 ML VIAL SQ SCH (09:22)
--- NOTE | 2024-10-19 09:46 | P.HPIM ---
History of Present Illness H&P Date: 10/19/24 History of present illness; patient is a 84-year-old lady with past medical history significant for coronary artery disease, hypertension, hyperlipidemia presented the ER for intermittent chest pain for the last 3 days. Patient stated that for the last 3 days she has been having episodes of chest pain which are pressure-like, central, nonradiating intermittent, no aggravating or relieving factor associated with this chest pain. Patient is having episodes of nausea during that time. Patient denies any shortness of breath during these episodes.There is no complaint of orthopnea or PND during the episode. Patient denies any diaphoresis during the episode. There was no complaint of orthopnea or PND. Patient did check her blood pressure and was found to be elevated with systolic above 200. Patient is currently being treated for UTI by being on Keflex. Because of this chest pain, patient came to the ED Initial lab work done in the ER showed to be 7.5, hemoglobin 15.3, platelet count 164, sodium 139, potassium 4.4, BUN 16, creatinine 0.63, glucose 116, AST 81, ALT 56, troponin 0.012 UA negative for infection EKG done in the ER showed heart rate of [address] segment elevation or dep ression seen, no T-wave inversions seen. Chest x-ray done in the ER showed no acute cardiopulmonary process Patient admitted to internal medicine service REVIEW OF SYSTEMS: CONSTITUTIONAL: No fever, no malaise, no fatigue. HEENT: No recent visual problems or hearing problems. Denied any sore throat. CARDIOVASCULAR: As mentioned above. PULMONARY: As mentioned above GASTROINTESTINAL: No diarrhea, no nausea, no vomiting, no abdominal pain. NEUROLOGICAL: No headaches, no weakness, no numbness. HEMATOLOGICAL: Denies any bleeding or petechiae. GENITOURINARY: Denies any burning micturition, frequency, or urgency. MUSCULOSKELETAL/RHEUMATOLOGICAL: Denies any joint pain, swelling, or any muscle pain. ENDOCRINE: Denies any polyuria or polydipsia. The rest of the 14-point review of systems is negative. PHYSICAL EXAMINATION: GENERAL: The patient is alert and oriented x3, not in any acute distress. Well developed, well nourished. HEENT: Pupils are round and equally reacting to light. EOMI. No scleral icterus. No conjunctival pallor. Normocephalic, atraumatic. No pharyngeal erythema. No thyromegaly. CARDIOVASCULAR: S1 and S2 present. No murmurs, rubs, or gallops. PULMONARY: Chest is clear to auscultation, no wheezing or crackles. ABDOMEN: Soft, nontender, nondistended, normoactive bowel sounds. No palpable organomegaly. MUSCULOSKELETAL: No joint swelling or deformity. EXTREMITIES: No cyanosis, clubbing, or pedal edema. NEUROLOGICAL: Gross neurological examination did not reveal any focal deficits. SKIN: No rashes. Assessment and plan Chest pain rule out acute coronary syndrome Recent UTI, being treated outpatient with Keflex Acute transaminitis History of hypertension History of coronary artery disease Monitor vital signs Monitor CBC Monitor CMP Continue telemetry monitoring Trend troponin Ordered D-dimer Resume aspirin, Coreg Adjust blood pressure medication as tolerated Ordered 2D echo Ordered lipid panel, TSH, HbA1c Continue Rocephin as patient was getting Keflex outpatient Consult cardiology Labs and medication were reviewed.. Continue same treatment. Continue with symptomatic treatment. Resume home medication. Monitor labs and vitals. DVT a nd GI prophylaxis. Further recommendations as per clinical course of the patient Dictation was produced using [employer] dictation software. please excuse any grammatical, word or spelling errors. Past Medical History Past Medical History: Coronary Artery Disease (CAD), GERD/Reflux, Hyperlipidemia, Hypertension, Osteoarthritis (OA) Additional Past Medical History / Comment(s): recheck pancreatitis, Hx. polyp in gallbladder Hx. frequent UTI-sepsis x2, "palitations", occular migraines, pancreatitis History of Any Multi-Drug Resistant Organisms: None Reported Past Surgical History: Adenoidectomy, Heart Catheterization With Stent, Tonsillectomy, Tubal Ligation Additional Past Surgical History / Comment(s): Hx.benign lump removed from Left hand and tongue yrs ago Past Anesthesia/Blood Transfusion Reactions: No Reported Reaction Date of Last Stent Placement:: 2012 Past Psychological History: No Psychological Hx Reported Smoking Status: Never smoker - Past Family History Mother Family Medical History: Cancer, Myocardial Infarction ([place]) Additional Family Medical History / Comment(s): Mother at age 91 w/ [place] hx of uterine cancer. Father Family Medical History: Cancer Additional Family Medical History / Comment(s): Father at age 83 from prostate cancer and esophageal cancer. Brother(s) Family Medical History: Cancer Additional Family Medical History / Comment(s): half-brother at age 68 from lung cancer. Sister(s) Family Medical History: Cancer Additional Family Medical History / Comment(s): half sister that at age 69 from lung cancer. Daughter(s) History Unknown: Yes Family Medical History: CVA/TIA, Hypertension Additional Family Medical History / Comment(s): Patient has 4 daughters one daug hter had stroke age 33. Other daughters have hypertension. Son(s) History Unknown: Yes Family Medical History: Hypertension Additional Family Medical History / Comment(s): Patient has 3 sons all with hypertension. Medications and Allergies Home Medications Medication Instructions Recorded Confirmed Type Aspirin EC [Ecotrin Low Dose] 81 mg PO HS 03/05/21 09/19/22 History Nitroglycerin Sl Tabs [Nitrostat] 0.4 mg SUBLINGUAL Q5M PRN 10/05/21 09/19/22 History Losartan [Cozaar] 50 mg PO BID #60 tab 10/06/21 09/19/22 Rx carvediloL [Coreg] 3.125 mg PO BID 09/19/22 09/19/22 History Allergies Allergy/AdvReac Type Severity Reaction Status Date / Time No Known Allergies Allergy Verified 10/18/24 21:49 Physical Exam Vitals: Vital Signs Temp Pulse Resp BP Pulse Ox 10/19/24 07:45 98 F 10/19/24 07:05 67 17 154/70 97 10/19/24 05:02 63 17 135/79 96 10/19/24 03:13 63 16 136/80 95 10/19/24 00:39 66 18 166/88 97 10/18/24 22:35 77 18 174/87 96 10/18/24 22:11 126/83 10/18/24 22:00 201/105 10/18/24 21:58 209/114 10/18/24 21:56 224/134 10/18/24 21:47 97.9 F 95 18 208/130 98 Intake and Output 10/18/24 10/19/24 10/19/24 22:59 06:59 14:59 Other: Weight 75.75 kg Results CBC & Chem 7: 10/19/24 00:00 10/19/24 00:00 Labs: Abnormal Lab Results - Last 24 Hours (Table) 10/18/24 10/18/24 10/19/24 Range/Units 22:01 22:01 00:00 Hct 46.7 H (34.0-46.0) % Glucose 116 H 108 H (74-99) mg/dL AST 81 H 68 H (14-36) U/L ALT 56 H 53 H (4-34) U/L Alkaline Phosphatase 164 H 147 H (38-126) U/L
[2024-10-19] MEDS: VALSARTAN 160 MG TAB PO SCH (10:26)
--- NOTE | 2024-10-19 13:17 | P.CRDCN ---
History of Present Illness Consult date: 10/19/24 History of present illness: The patient is a pleasant 84-year-old female patient with a past medical history significant for hypertension and dyslipidemia and CAD with prior stenting of the LAD in 2012 as well as multiple comorbid conditions who was admitted to the [facility] with a chest discomfort. For the last 2 to 3 weeks she has been experiencing intermittent episode of chest discomfort in the middle of the chest as a pressure with no radiation to the arms or neck or shoulders or back and no associated symptoms besides shortness of breath but no dizziness or l ightheadedness and no presyncope or syncope. She presented and underwent further evaluation including an EKG showing sinus mechanism with no ischemic ST or T wave abnormalities and cardiac enzymes came in to be unremarkable. Her pressure has been consistent with stage II or sometimes hypertension crisis. She was compliant with the current dose of valsartan along with carvedilol. I am going to add hydrochlorothiazide to the current medical regimen. Her GFR is within normal limits. An echocardiogram was ordered we will follow-up on that. She also was diagnosed with UTI and she was started on antibiotic. Physical examination is remarkable for regular rhythm with a quite significant systolic murmur at the right upper sternal border with decrease in the intensity of S2 and clear breathing sounds bilaterally and no edema was noted Assessment Chest discomfort Uncontrolled blood pressure CAD with prior stenting as described above Systolic murmur on examination appears to be significant Plan Acute coronary event was ruled out Add hydrochlorothiazide to the current medical regimen Follow-up on the echocardiogram which was ordered Further recommendation to follow Past Medical History Past Medical History: Coronary Artery Disease (CAD), GERD/Reflux, Hyperlipidemia, Hypertension, Osteoarthritis (OA) Additional Past Medical History / Comment(s): recheck pancreatitis, Hx. polyp in gallbladder Hx. frequent UTI-sepsis x2, "palitations", occular migraines, pancreatitis History of Any Multi-Drug Resistant Organisms: None Reported Past Surgical History: Adenoidectomy, Heart Catheterization With Stent, Tonsillectomy, Tubal Ligation Additional Past Surgical History / Comment(s): Hx.benign lump removed from Left hand and tongue yrs ago Past Anesthesia/Blood Transfusion Reactions: No Reported Reaction Date of Last Stent Placement:: 2012 Past Psychological History: No Psychological Hx Reported Smoking Status: Never smoker - Past Family History Mother Family Medical History: Cancer, Myocardial Infarction (VT) Additional Family Medical History / Comment(s): Mother at age 91 w/ VT hx of uterine cancer. Father Family Medical History: Cancer Additional Family Medical History / Comment(s): Father at age 83 from prostate cancer and esophageal cancer. Brother(s) Family Medical History: Cancer Additional Family Medical History / Comment(s): half-brother at age 68 from lung cancer. Sister(s) Family Medical History: Cancer Additional Family Medical History / Comment(s): half sister that at age 69 from lung cancer. Daughter(s) History Unknown: Yes Family Medical History: CVA/TIA, Hypertension Additional Family Medical History / Comment(s): Patient has 4 daughters one daughter had stroke age 33. Other daughters have hypertension. Son(s) History Unknown: Yes Family Medical History: Hypertension Additional Family Medical History / Comment(s): Patient has 3 sons all with hypertension. Medications and Allergies Home Medications Medication Instructions Recorded Confirmed Type Aspirin EC [Ecotrin Low Dose] 81 mg PO HS 03/05/21 10/19/24 History Nitroglycerin Sl Tabs [Nitrostat] 0.4 mg SL Q5M PRN 10/05/21 10/19/24 History carvediloL [Coreg] 3.125 mg PO BID 09/19/22 10/19/24 History Calcium 1200mg-Vit D3 125mcg 1 tab PO HS 10/19/24 10/19/24 History Cephalexin [Keflex] 1,000 mg PO Q12HR 10/19/24 10/19/24 History Valsartan 160 mg PO BID 10/19/24 10/19/24 History Allergies Allergy/AdvReac Type Severity Reaction Status Date / Time No Known Allergies Allergy Verified 10/19/24 10:00 Physical Exam Vitals: Vital Signs Temp Pulse Pulse Resp BP BP Pulse Ox 10/19/24 11:30 73 170/89 10/19/24 09:30 204/97 10/19/24 07:45 98 F 10/19/24 07:05 67 17 154/70 97 10/19/24 05:02 63 17 135/79 96 10/19/24 03:13 63 16 136/80 95 10/19/24 00:39 66 18 166/88 97 10/18/24 22:35 77 18 174/87 96 10/18/24 22:11 126/83 10/18/24 22:00 201/105 10/18/24 21:58 209/114 10/18/24 21:56 224/134 10/18/24 21:47 97.9 F 95 18 208/130 98 Intake and Output 10/18/24 10/19/24 10/19/24 22:59 06:59 14:59 Other: Weight 75.75 kg Results 10/19/24 00:00 10/19/24 00:00 Cardiac Enzymes 10/18/24 10/18/24 10/19/24 Range/Units 22:01 22:01 00:00 AST 81 H 68 H (14-36) U/L Troponin I <0.012 (0.000-0.034) ng/mL 10/19/24 10/19/24 Range/Units 00:07 04:20 AST (14-36) U/L Troponin I <0.012 0.018 (0.000-0.034) ng/mL Coagulation 10/18/24 Range/Units 22:01 PT 11.7 (10.0-12.5) sec APTT 25.6 (22.0-30.0) sec CBC 10/18/24 10/19/24 Range/Units 22:01 00:00 WBC 7.5 6.9 (3.8-10.6) k/uL RBC 5.21 4.80 (3.80-5.40) m/uL Hgb 15.3 14.2 (11.4-16.0) gm/dL Hct 46.7 H 44.1 (34.0-46.0) % Plt Count 164 180 (150-450) k/uL Comprehensive Metabolic Panel 10/18/24 10/19/24 Range/Units 22:01 00:00 Sodium 139 139 (137-145) mmol/L Potassium 4.4 4.3 (3.5-5.1) mmol/L Chloride 105 107 (98-107) mmol/L Carbon Dioxide 24 26 (22-30) mmol/L BUN 16 16 (7-17) mg/dL Creatinine 0.63 0.65 (0.52-1.04) mg/dL Glucose 116 H 108 H (74-99) mg/dL Calcium 9.3 8.8 (8.4-10.2) mg/dL AST 81 H 68 H (14-36) U/L ALT 56 H 53 H (4-34) U/L Alkaline Phosphatase 164 H 147 H (38-126) U/L Total Protein 7.5 6.7 (6.3-8.2) g/dL Albumin 4.0 3.5 (3.5-5.0) g/dL Current Medications Generic Name Dose Route Start Last Admin Trade Name Freq PRN Reason Stop Dose Admin Acetaminophen 650 mg 10/18/24 23:01 Acetaminophen Tab 325 Mg Tab PO Q6HR PRN Mild Pain or Fever > 100.5 Aspirin 81 mg 10/19/24 21:00 Aspirin 81 Mg PO HS KIN Carvedilol 3.125 mg 10/19/24 17:30 Carvedilol 3.125 Mg Tab PO BID-W/MEALS KIN Heparin Sodium (Porcine) 5,000 unit 10/19/24 09:00 10/19/24 09:22 Heparin Sodium,Porcine 5,000 Unit/Ml 1 Ml Vial SQ 5,000 unit Q12HR KIN Administration Ceftriaxone Sodium 1 gm/ 50 mls @ 100 mls/hr 10/19/24 00:00 10/19/24 00:01 Sodium Chloride IVPB 100 mls/hr Q24H KIN Administration Protocol Sodium Chloride 1,000 mls @ 100 mls/hr 10/18/24 23:15 10/19/24 09:24 Saline 0.9% IV 100 mls/hr .Q10H KIN Administration Naloxone HCl 0.2 mg 10/18/24 23:01 Naloxone 0.4 Mg/Ml 1 Ml Vial IV Q2M PRN Opioid Reversal Nitroglycerin 0.5 inch 10/18/24 22:42 10/19/24 07:30 Nitroglycerin Oint 1 Inch/Gm Packet TOPICAL Not Given Q8HR KIN Ondansetron HCl 4 mg 10/18/24 23:01 Ondansetron 4 Mg/2 Ml Vial IVP Q8HR PRN Nausea And Vomiting Valsartan 160 mg 10/19/24 09:45 10/19/24 10:26 Valsartan 160 Mg Tab PO 160 mg BID KIN Administration Intake and Output 10/18/24 10/19/24 10/19/24 22:59 06:59 14:59 Other: Weight 75.75 kg 10/19/24 00:00 10/19/24 00:00
--- NOTE | 2024-10-19 14:43 | CT ---
EXAMINATION TYPE: CT angio chest DATE OF EXAM: 10/19/2024 2:12 PM COMPARISON: None. CLINICAL INDICATION: Female, 84 years old with history of elevated d-dimer, chest pain, Positive dime r, TECHNIQUE: Axial CT was performed with sagittal and coronal reformats. 3D reconstruction and/or MIP imaging was also performed on a separate workstation. IV CONTRAST: with IV Contrast, patient injected with 60ml mL of Isovue 370. (None if empty) CT DLP: 302.4 mGycm, Automated exposure control for dose reduction was used. FINDINGS: PULMONARY ARTERIES: The pulmonary arteries and their major tributaries are patent. I do not see haley dence for sizable filling defect to suggest pulmonary embolic process. LUNGS: The lungs are clear and free of infiltrate. No evidence for atelectasis. No pulmonary nodule or mass is detected. No pleural effusion. MEDIASTINUM: Thoracic aorta is of normal caliber.No evidence for mediastinal mass. No mediastinal l ymph nodes greater than 1cm. HEART: Size within normal limits. No significant coronary artery calcifications. HILAR STRUCTURES: No evidence for mass. No hilar lymph nodes greater than 1 cm. UPPER ABDOMEN: No significant abnormality is seen. IMPRESSION: 1. No evidence for Pulmonary embolism at this time. [facility], , 10/19/2024 2:41 PM
[2024-10-19] MEDS: hydroCHLOROthiazide 25 MG TAB PO SCH (14:52)
[2024-10-19] MEDS: carvediloL 3.125 MG TAB PO SCH (17:51)
[2024-10-19] MEDS: ASPIRIN 81 MG PO SCH (21:29)
[2024-10-20 07:32] LABS: ALT 41 U/L (4-34); AST 49 U/L (14-36); African American GFR (CKD) 79 (>60 ml/min/1.73 sqM); Albumin 2.8 g/dL (3.5-5.0); Alkaline Phosphatase 116 U/L (38-126); Anion Gap 4 mmol/L; Blood Urea Nitrogen 15 mg/dL (7-17); Calcium 8.4 mg/dL (8.4-10.2); Carbon Dioxide 26 mmol/L (22-30); Chloride 109 mmol/L (98-107); Globulin 2.9 g/dL; Glucose 82 mg/dL (74-99); Non-African American GFR(CKD) 68 (>60 ml/min/1.73 sqM); Potassium 4.4 mmol/L (3.5-5.1); Sodium 139 mmol/L (137-145); Total Bilirubin 0.5 mg/dL (0.2-1.3); Total Protein 5.7 g/dL (6.3-8.2)
[2024-10-20 07:57] VITALS: BP 155/69; PULSE 67; RESP 18; TEMP 97.8
--- NOTE | 2024-10-20 08:09 | P.PN ---
Subjective Progress Note Date: 10/20/24 patient is a 84-year-old lady with past medical history significant for coronary artery disease, hypertension, hyperlipidemia presented the ER for intermittent chest pain for the last 3 days. Patient stated that for the last 3 days she has been having episodes of chest pain which are pressure-like, centr al, nonradiating intermittent, no aggravating or relieving factor associated with this chest pain. Patient is having episodes of nausea during that time. Patient denies any shortness of breath during these episodes.There is no complaint of orthopnea or PND during the episode. Patient denies any d iaphoresis during the episode. There was no complaint of orthopnea or PND. Patient did check her blood pressure and was found to be elevated with systolic above 200. Patient is currently being treated for UTI by being on Keflex. Because of this chest pain, patient came to the ED Initial lab work done in the ER showed to be 7.5, hemoglobin 15.3, platelet count 164, sodium 139, potassium 4.4, BUN 16, creatinine 0.63, glucose 116, AST 81, ALT 56, troponin 0.012 UA negative for infection EKG done in the ER showed heart rate of [address] segment elevation or depression seen, no T-wave inversions seen. Chest x-ray done in the ER showed no acute cardiopulmonary process Patient admitted to internal medicine service /. Patient seen and examined. Labs done showed sodium 139, potassium 4.4, B UN 815, creatinine 0.81, AST 49, ALT 41. CTA chest done showed no PE. States she feels better REVIEW OF SYSTEMS: CONSTITUTIONAL: No fever, no malaise,. CARDIOVASCULAR: No chest pain, no palpitations, no syncope. PULMONARY: No shortness of breath, no cough, GASTROINTESTINAL: No diarrhea, no nausea, no vomiting, no abdominal pain. NEUROLOGICAL: No headaches, no weakness, PHYSICAL EXAMINATION: GENERAL: The patient is alert and oriented x3, not in any acute distress. Well developed, well nourished. HEENT: Pupils are round and equally reacting to light. EOMI. No scleral icterus. No conjunctival pallor. Normocephalic, atraumatic. No pharyngeal erythema. No thyromegaly. CARDIOVASCULAR: S1 and S2 present. No murmurs, rubs, or gallops. PULMONARY: Chest is clear to auscultation, no wheezing or crackles. ABDOMEN: Soft, nontender, nondistended, normoactive bowel sounds. No palpable organomegaly. MUSCULOSKELETAL: No joint swelling or deformity. EXTREMITIES: No cyanosis, clubbing, or pedal edema. NEUROLOGICAL: Gross neurological examination did not reveal any focal deficits. SKIN: No rashes. Assessment and plan Chest pain rule out acute coronary syndrome Recent UTI, being treated outpatient with Keflex Acute transaminitis History of hypertension History of coronary artery disease Monitor vital signs Monitor CBC Monitor CMP Continue telemetry monitoring Encourage use of incentive spirometer CT chest negative for PE 2D echo pending Continue aspirin, Coreg, Diovan Cardiology evaluated started HCTZ Labs and medication were reviewed.. Continue same treatment. Continue with symptomatic treatment. Resume home medication. Monitor labs and vitals. DVT and GI prophylaxis. Further recommendations as per clinical course of the patient Dictation was produced using [employer] dictation software. please excuse any grammatical, word or spelling errors. Objective - Vital Signs Vital signs: Vital Signs Temp 97.8 F 10/20/24 06:59 Pulse 67 10/20/24 06:59 Resp 18 10/20/24 06:59 BP 155/69 10/20/24 06:59 Pulse Ox 97 10/20/24 06:59 FiO2 Intake & Output 10/19/24 10/20/24 10/20/24 18:59 06:59 18:59 Weight 75.75 kg Other: Voiding Method Toilet # Voids 2 - Labs CBC & Chem 7: 10/19/24 00:00 10/20/24 06:01 Labs: Abnormal Lab Results - Last 24 Hours (Table) 10/19/24 10/20/24 Range/Units 11:16 06:01 D-Dimer 0.66 H (<0.60) mg/L FEU Chloride 109 H (98-107) mmol/L AST 49 H (14-36) U/L ALT 41 H (4-34) U/L Total Protein 5.7 L (6.3-8.2) g/dL Albumin 2.8 L (3.5-5.0) g/dL
[2024-10-20 09:52] LABS: Basophils # (A) 0.04 X 10*3/uL (0.00-0.10); Basophils % (A) 0.8 %; Eosinophils # (A) 0.23 X 10*3/uL (0.04-0.35); Eosinophils % (A) 4.5 %; HGB 12.4 g/dL (12.0-15.0); Lymphocytes # (A) 2.45 X 10*3/uL (0.90-5.00); Lymphocytes % (A) 47.9 %; MCH 29.7 pg (27.0-32.0); MCHC 31.8 g/dL (32.0-37.0); MCV 93.3 FL (80.0-97.0); Mean Platelet Volume 10.7 FL (9.5-12.2); Monocytes # (A) 0.74 X 10*3/uL (0.20-1.00); Monocytes % (A) 14.5 %; NRBC Per 100 WBC 0 X 10*3/uL (0.00-0.01); Neutrophils # (A) 1.64 X 10*3/uL (1.80-7.70); Neutrophils % (A) 32.1 %; Platelet Count 141 X 10*3/uL (140-440); RBC 4.18 X 10*6/uL (4.10-5.20); WBC 5.11 X 10*3/uL (4.50-10.00)
--- NOTE | 2024-10-20 12:23 | P.PN ---
Subjective Progress Note Date: 10/20/24 The patient is a pleasant 84-year-old female patient with a past medical history significant for hypertension and dyslipidemia and CAD with prior stenting of the LAD in 2012 as well as multiple comorbid conditions who was admitted to the hospital with a chest discomfort. For the last 2 to 3 weeks she has been experiencing intermittent episode of chest discomfort in the middle of the chest as a pressure with no radiation to the arms or neck or shoulders or back and no associated symptoms besides shortness of breath but no dizziness or lightheadedness and no presyncope or syncope. She presented and underwent further evaluation including an EKG showing sinus mechanism with no ischemic ST or T wave abnormalities and cardiac enzymes came in to be unremarkable. Her pressure has been consistent with stage II or sometimes hypertension crisis. She was compliant with the current dose of valsartan along with carvedilol. I am going to add hydrochlorothiazide to the current medical regimen. Her GFR is within normal limits. An echocardiogram was ordered we will follow-up on that. She also was diagnosed with UTI and she was started on antibiotic. Physical examination is remarkable for regular rhythm with a quite significant systolic murmur at the right upper sternal border with decrease in the intensity of S2 and clear breathing sounds bilaterally and no edema was noted October 20, 2024 The patient was seen and evaluated this morning. The chest discomfort has resolved after the pressure has came down after adding hydrochlorothiazide to the current dose of valsartan. From the cardiovascular standpoint of view, the patient can be discharged home and follow-up with her primary kaitara taraka as an outpatient. The physical examination is remarkable for a systolic murmur appears to be somewhat significant at the right upper sternal border with clear breathing sounds bilaterally Assessment Chest discomfort Uncontrolled blood pressure CAD with prior stenting as described above Systolic murmur on examination appears to be significant Plan Acute coronary event was ruled out The patient can be discharged home Objective - Vital Signs Vital signs: Vital Signs Temp 97.8 F 10/20/24 06:59 Pulse 67 10/20/24 06:59 Resp 18 10/20/24 08:00 BP 155/69 10/20/24 06:59 Pulse Ox 97 10/20/24 06:59 FiO2 Intake & Output 10/19/24 10/20/24 10/20/24 18:59 06:59 18:59 Weight 75.75 kg Other: Voiding Method Toilet Toilet # Voids 2 - Labs CBC & Chem 7: 10/20/24 06:01 10/20/24 06:01 Labs: Abnormal Lab Results - Last 24 Hours (Table) 10/19/24 10/20/24 10/20/24 Range/Units 11:16 06:01 06:01 MCHC 31.8 L (32.0-37.0) g/dL Neutrophils # 1.64 L (1.80-7.70) X 10*3/uL D-Dimer 0.66 H (<0.60) mg/L FEU Chloride 109 H (98-107) mmol/L AST 49 H (14-36) U/L ALT 41 H (4-34) U/L Total Protein 5.7 L (6.3-8.2) g/dL Albumin 2.8 L (3.5-5.0) g/dL Microbiology - Last 24 Hours (Table) 10/18/24 23:52 Urine Culture - Final Urine,Voided
[2024-10-20 13:09] LABS: Chol/HDL Ratio 2.32 Ratio; VLDL Calculation 13.04 mg/dL (5.00-40.00)
[2024-10-20 13:10] LABS: LDL Cholesterol,Calculated 47.8 mg/dL (0.0-131.0)
== END 2024-10-20 14:10 | disposition home or self-care (01) ==
LOC: EC 21:44 → 6NMEDSUR 23:04
PROVIDERS: ADMIT Hospitalist; ATTEND Hospitalist
DX: R07.89 Other chest pain (principal); I16.0 Hypertensive urgency; R01.1 Cardiac murmur, unspecified; N39.0 Urinary tract infection, site not specified; I25.10 Atherosclerotic heart disease of native coronary artery without angina pectoris; R74.01 Elevation of levels of liver transaminase levels; I10 Essential (primary) hypertension; E78.5 Hyperlipidemia, unspecified; K21.9 Gastro-esophageal reflux disease without esophagitis; Z95.5 Presence of coronary angioplasty implant and graft; Z79.82 Long term (current) use of aspirin; Z79.899 Other long term (current) drug therapy; Z82.49 Family history of ischemic heart disease and other diseases of the circulatory system
CPT/HCPCS: 96365 ×2; 96372 ×2; 99285; 36415; 93005; 85379; 83880; 80061; 80053 ×3; 84443; 83690; 83735; 84484 ×2; 85025 ×3; 85610; 85730; 81003; 87086; 83036; 71046; 71275; G0378 ×3; J1644; J0696 ×2; Q9967

== ENCOUNTER → 2025-01-01 | Outpatient (CLI) | payer MEDICARE ==
[2025-01-01 15:52] LABS: Basophils # (A) 0.06 X 10*3/uL (0.00-0.10); Basophils % (A) 0.9 %; Eosinophils # (A) 0.14 X 10*3/uL (0.04-0.35); Eosinophils % (A) 2.1 %; HCT 39.1 % (37.2-46.3); HGB 12.8 g/dL (12.0-15.0); Lymphocytes # (A) 2.16 X 10*3/uL (0.90-5.00); MCH 29.6 pg (27.0-32.0); MCHC 32.7 g/dL (32.0-37.0); MCV 90.5 FL (80.0-97.0); Mean Platelet Volume 10.7 FL (9.5-12.2); Monocytes # (A) 0.86 X 10*3/uL (0.20-1.00); Monocytes % (A) 12.7 %; NRBC Per 100 WBC 0 X 10*3/uL (0.00-0.01); Neutrophils % (A) 51.9 %; Platelet Count 175 X 10*3/uL (140-440); RBC 4.32 X 10*6/uL (4.10-5.20); RDW 13.7 % (11.5-14.5); WBC 6.75 X 10*3/uL (4.50-10.00)
[2025-01-01 16:13] LABS: BUN/Creat Ratio 22.62 Ratio (12.00-20.00); Blood Urea Nitrogen 18.1 mg/dL (9.0-27.0); Carbon Dioxide 24.6 mmol/L (21.6-31.8); Chloride 110 mmol/L (96-109); Glucose 98 mg/dL (70-110); Potassium 4.1 mmol/L (3.5-5.5); Sodium 143 mmol/L (135-145)
[2025-01-01 16:14] LABS: ALT 34 U/L (8-44); AST 49 U/L (13-35); Albumin 3.5 g/dL (3.8-4.9); Albumin/Globulin Ratio 1.25 Ratio (1.60-3.17); Alkaline Phosphatase 121 U/L (41-126); Calcium 8.9 mg/dL (8.7-10.3); Globulin 2.8 g/dL (1.6-3.3); Total Bilirubin 0.5 mg/dL (0.3-1.2); Total Protein 6.3 g/dL (6.2-8.2)
== END | disposition home or self-care (01) ==
LOC: LABWHC1 11:20
PROVIDERS: ATTEND Internal Medicine Gastroenterology
DX: K74.69 Other cirrhosis of liver (principal)
CPT/HCPCS: 36415; 80053; 82105; 85025

== ENCOUNTER → 2025-01-31 | Outpatient (CLI) | payer MEDICARE ==
--- NOTE | 2025-01-31 13:32 | US ---
EXAMINATION TYPE: US kidneys/renal and bladder DATE OF EXAM: 01/31/2025 COMPARISON: CT abdomen 01/21/2021, abdominal ultrasound 12/22/2020 CLINICAL INDICATION: Female, 85 years old with history of N39.9 DISORDER OF URINARY SYSTEM, UNSPECIFI ED; Recurring UTIs TECHNIQUE: Grayscale imaging of the bilateral kidneys and urinary bladder: FINDINGS: EXAM MEASUREMENTS: Right Kidney: 10.3 x 4.4 x 4.6 cm Left Kidney: 10.9 x 4.6 x 4.1 cm Post Void Residual Volume: NA mL Right Kidney: wnl, no evidence for hydronephrosis, mass or renal calculus. Left Kidney: wnl, no evidence for hydronephrosis, mass or renal calculus; cyst noted = 2.7 x 1.9 x 2. 1 cm Bladder: wnl Bilateral Jets seen: Yes Normal Post Void Residual: NA There is no evidence for hydronephrosis at this point in time. No nephrolithiasis is seen. Prominen t column of Ruben in the right kidney. No solid renal masses are identified. Simple left renal cyst measuring up to 2.7 cm. Corticomedullary differentiation is maintained bilaterally. The urinary blad roseann is anechoic. Bilateral ureteral jets identified. IMPRESSION: 1. No hydronephrosis or nephrolithiasis. 2. Simple left renal cyst. [facility], , 01/31/2025 1:30 PM
== END | disposition home or self-care (01) ==
LOC: RADUSWWP 12:39
PROVIDERS: ATTEND Urology
DX: N28.1 Cyst of kidney, acquired (principal); N39.9 Disorder of urinary system, unspecified
CPT/HCPCS: 76770

== ENCOUNTER → 2025-02-17 | Outpatient (CLI) | payer MEDICARE ==
--- NOTE | 2025-02-17 08:35 | US ---
EXAMINATION TYPE: US liver DATE OF EXAM: 02/17/2025 COMPARISON: Multiple ultrasound liver with most recent 07/08/2024 CLINICAL INDICATION: Female, 85 years old with history of K74.69 OTH CIRRHOSIS OF LIVER; liver cirrho sis, no pain TECHNIQUE: Grayscale and color Doppler imaging of the right upper quadrant was performed. FINDINGS: EXAM MEASUREMENTS: Liver Length: 11.4 cm Gallbladder Wall: 0.2 cm CBD: 0.6 cm Right Kidney: 8.8 x 4.1 x 3.9 cm Pancreas: Echogenic in appearance, limited visualization of tail Liver: Coarse. Nodular. Gallbladder: No stones or wall thickening Evidence for sonographic Bernal's sign: neg CBD: wnl Right Kidney: No hydronephrosis or masses seen, column of ruben seen Echogenic appearance of the pancreas without focal lesion. Limited visualization of the tail. The mackenzie er demonstrates coarse echotexture with surface nodularity. No focal lesion identified. The gallbladd er demonstrates no stones or wall thickening. No surrounding fluid. Negative sonographic Bernal's sig n. Common bile duct is within normal limits. Right kidney demonstrate no hydronephrosis, solid mass o r shadowing calculus. Column of Ruben is identified. No visualized ascites within the right upper qu adrant. IMPRESSION: Findings consistent with hepatic cirrhosis. No suspicious focal lesion however MRI is more sensitive. [facility], , 02/17/2025 8:33 AM
== END | disposition home or self-care (01) ==
LOC: RADUSWWP 08:02
PROVIDERS: ATTEND Internal Medicine Gastroenterology
DX: K74.69 Other cirrhosis of liver (principal)
CPT/HCPCS: 76705